=== PATIENT | female | born 1935 | race Caucasian/White ===

== ENCOUNTER 2016-10-26 12:37 | Inpatient (IN) | payer MEDICARE ==
[2016-10-26] MEDS ORDERED: ONDANSETRON 4 MG/2 ML VIAL IVP STA ×2 (12:57→14:41)
[2016-10-26] MEDS ORDERED: SODIUM CHLORIDE 0.9% 1,000 ML IV STA (12:57)
--- NOTE | 2016-10-26 13:16 | ED ---
Nausea/Vomiting/Diarrhea HPI - General Source: patient, family, RN notes reviewed Mode of arrival: ambulatory Limitations: no limitations <Rakesh Le - Last Filed: 10/26/16 15:21> <Cameron Rae - Last Filed: 10/26/16 15:22> - General Stated complaint: nausea,vomiting Time Seen by Provider: 10/26/16 12:45 - History of Present Illness Initial comments: 81-year-old female patient presents to emergency department today for complaints of nausea, vomiting, and diarrhea for the last week. Patient states that she has been vomiting multiple times a day, has had multiple episodes of diarrhea daily with 5 episodes this morning. Patient denies any significant abdominal pain, just states that she is sore from vomiting so much. Patient states that she vomits anytime she tries to have any oral intake, so she states she has had very minimal food or fluids for the last week. Patient has had 2 bouts with similar episodes in addition to this episode since the beginning of September. Patient reports some mild shortness of breath, cough, with yellow sputum production. Patient denies any chest pain, headache, dizziness, weakness , dysuria, urinary urgency, urinary frequency. Patient denies any hematemesis, dark, bloody, or black stools. She denies any fever or chills. (Rakesh Le) - Related Data Home Medications Medication Instructions Recorded Confirmed Albuterol Sulfate [Proair Hfa] 1 puff INHALATION RT-DAILY PRN 10/26/16 10/26/16 Aspirin [Adult Low Dose Aspirin EC] 81 mg PO DAILY 10/26/16 10/26/16 Loperamide [Imodium] 2 mg PO QID PRN 10/26/16 10/26/16 Montelukast Sodium [Singulair] 10 mg PO HS 10/26/16 10/26/16 Omeprazole 20 mg PO DAILY 10/26/16 10/26/16 Allergies Allergy/AdvReac Type Severity Reaction Status Date / Time erythromycin base Allergy Unknown Verified 10/26/16 15:04 [From Erythrocin] Penicillins Allergy Unknown Verified 10/26/16 15:04 Review of Systems ROS Other: All systems not noted in ROS Statement are negative. <Rakesh Le - Last Filed: 10/26/16 15:21> ROS Other: All systems not noted in ROS Statement are negative. <Cameron Rae - Last Filed: 10/26/16 15:22> ROS Statement: Those systems with pertinent positive or pertinent negative responses have been documented in the HPI. General Exam Limitations: no limitations General appearance: alert, in distress (Mild) Eye exam: Present: normal appearance, PERRL, EOMI. Absent: scleral icterus, conjunctival injection, periorbital swelling ENT exam: Present: normal exam, mucous membranes moist Neck exam: Present: normal inspection. Absent: tenderness, meningismus, lymphadenopathy Respiratory exam: Present: respiratory distress (Mild), rhonchi (Left lower). Absent: normal lung sounds bilaterally, wheezes, rales, stridor Cardiovascular Exam: Present: normal rhythm, tachycardia, normal heart sounds. Absent: systolic murmur, diastolic murmur, rubs, gallop, clicks GI/Abdominal exam: Present: soft, tenderness (Mild diffuse tenderness, moderate left lower quadrant), normal bowel sounds. Absent: distended, guarding, rebound , rigid Back exam: Present: normal inspection. Absent: CVA tenderness (R), CVA tenderness (L) Neurological exam: Present: alert, oriented X3, CN II-XII intact Psychiatric exam: Present: normal affect, normal mood Skin exam: Present: warm, dry, intact, pallor. Absent: rash <Rakesh Le - Last Filed: 10/26/16 15:21> Course <Rakesh Le - Last Filed: 10/26/16 15:21> <Cameron Rae - Last Filed: 10/26/16 15:22> Vital Signs 10/26/16 10/26/16 10/26/16 13:00 14:25 14:51 Temperature 97.8 F 101.1 F H Pulse Rate 85 117 H 112 H Respiratory 16 20 16 Rate Blood Pressure 108/63 128/57 128/57 O2 Sat by Pulse 92 L 92 L Oximetry - Reevaluation(s) Reevaluation #1: 10/26/16 14:52 Patient was found a lactic acid of 8.5. Patient was given 30/kg of normal saline, patient was started on IV antibiotics Levaquin, Flagyl. Patient has left lower lobe pneumonia, diverticulitis (Rakesh Le) Medical Decision Making - Lab Data Result diagrams: 10/26/16 12:55 03/25/17 12:55 - Radiology Data Radiology results: report reviewed, image reviewed <Rakesh Le - Last Filed: 10/26/16 15:21> - Lab Data Result diagrams: 10/26/16 12:55 10/26/16 12:55 <Cameron Rae - Last Filed: 10/26/16 15:22> - Medical Decision Making 81-year-old female presented emergency from for nausea vomiting diarrhea, cough and congestion. Patient was found to have left lower lobe pneumonia and diverticulitis. Patient is septic at this time. Patient was started on IV fluid resuscitation, IV antibiotics broad-spectrum. Patient will be admitted to ICU with consult to surgery, repeat labs including lactic acid (Rakesh Le ) The patient was seen and examined. All diagnostics were reviewed. Case was discussed with internal medicine and ICU. Case is also discussed with the PA and I agree with the findings as discussed. (Cameron Rae) - Lab Data Lab Results 10/26/16 10/26/16 10/26/16 Range/Units 12:55 12:55 12:55 WBC 24.6 H (3.8-10.6) k/uL RBC 4.34 (3.80-5.40) m/uL Hgb 12.2 (11.4-16.0) gm/dL Hct 37.5 (34.0-46.0) % MCV 86.3 (80.0-100.0) fL MCH 28.0 (25.0-35.0) pg MCHC 32.5 (31.0-37.0) g/dL RDW 20.6 H (11.5-15.5) % Plt Count 103 L (150-450) k/uL Neutrophils % (Manual) 40.5 % Band Neutrophils % 34.0 % Lymphocytes % (Manual) 2.0 % Monocytes % (Manual) 2.0 % Metamyelocytes % 13.5 % Myelocytes % 8.0 % Neutrophils # (Manual) 18.3 H (1.3-7.7) k/uL Lymphocytes # (Manual) 0.5 L (1.0-4.8) k/uL Monocytes # (Manual) 0.5 (0-1.0) k/uL Nucleated RBCs 0 (0-0) /100 WBC Manual Slide Review Performed RBC Morphology Normal Hypochromasia Slight Anisocytosis Moderate Microcytosis Slight PT (9.0-12.0) sec INR (<1.1) APTT (22.0-30.0) sec Sodium 140 (137-145) mmol/L Potassium 4.1 (3.5-5.1) mmol/L Chloride 100 (98-107) mmol/L Carbon Dioxide 16 L (22-30) mmol/L Anion Gap 24 mmol/L BUN 29 H (7-17) mg/dL Creatinine 2.22 H (0.52-1.04) mg/dL Est GFR (MDRD) Af Amer 26 (>60 ml/min/1.73 sqM) Est GFR (MDRD) Non-Af 21 (>60 ml/min/1.73 sqM) Glucose 94 (74-99) mg/dL Plasma Lactic Acid Adriano 8.5 H* (0.7-2.0) mmol/L Calcium 8.1 L (8.4-10.2) mg/dL Total Bilirubin 1.2 (0.2-1.3) mg/dL AST 46 H (14-36) U/L ALT 11 (9-52) U/L Alkaline Phosphatase 77 (38-126) U/L Total Creatine Kinase (30-135) U/L CK-MB (CK-2) (0.0-2.4) ng/mL CK-MB (CK-2) Rel Index Troponin I (0.000-0.034) ng/mL Total Protein 7.6 (6.3-8.2) g/dL Albumin 3.9 (3.5-5.0) g/dL Amylase 38 (30-110) U/L Lipase 20 L (23-300) U/L Urine Color Urine Appearance (Clear) Urine pH (5.0-8.0) Ur Specific [place] (1.001-1.035) Urine Protein (Negative) Urine Glucose (UA) (Negative) Urine Ketones (Negative) Urine Blood (Negative) Urine Nitrite (Negative) Urine Bilirubin (Negative) Urine Urobilinogen (<2.0) mg/dL Ur Leukocyte Esterase (Negative) Urine RBC (0-5) /hpf Urine WBC (0-5) /hpf Ur Squamous Epith Cells (0-4) /hpf Urine Bacteria (None) /hpf C. difficile (EIA) Intrp (Negative) 10/26/16 10/26/16 10/26/16 Range/Units 12:55 12:55 14:00 WBC (3.8-10.6) k/uL RBC (3.80-5.40) m/uL Hgb (11.4-16.0) gm/dL Hct (34.0-46.0) % MCV (80.0-100.0) fL MCH (25.0-35.0) pg MCHC (31.0-37.0) g/dL RDW (11.5-15.5) % Plt Count (150-450) k/uL Neutrophils % (Manual) % Band Neutrophils % % Lymphocytes % (Manual) % Monocytes % (Manual) % Metamyelocytes % % Myelocytes % % Neutrophils # (Manual) (1.3-7.7) k/uL Lymphocytes # (Manual) (1.0-4.8) k/uL Monocytes # (Manual) (0-1.0) k/uL Nucleated RBCs (0-0) /100 WBC Manual Slide Review RBC Morphology Hypochromasia Anisocytosis Microcytosis PT 12.8 H (9.0-12.0) sec INR 1.3 (<1.1) APTT 32.8 H (22.0-30.0) sec Sodium (137-145) mmol/L Potassium (3.5-5.1) mmol/L Chloride (98-107) mmol/L Carbon Dioxide (22-30) mmol/L Anion Gap mmol/L BUN (7-17) mg/dL Creatinine (0.52-1.04) mg/dL Est GFR (MDRD) Af Amer (>60 ml/min/1.73 sqM) Est GFR (MDRD) Non-Af (>60 ml/min/1.73 sqM) Glucose (74-99) mg/dL Plasma Lactic Acid Adriano (0.7-2.0) mmol/L Calcium (8.4-10.2) mg/dL Total Bilirubin (0.2-1.3) mg/dL AST (14-36) U/L ALT (9-52) U/L Alkaline Phosphatase (38-126) U/L Total Creatine Kinase 96 (30-135) U/L CK-MB (CK-2) 2.2 (0.0-2.4) ng/mL CK-MB (CK-2) Rel Index 2.3 Troponin I 0.529 H* (0.000-0.034) ng/mL Total Protein (6.3-8.2) g/dL Albumin (3.5-5.0) g/dL Amylase (30-110) U/L Lipase (23-300) U/L Urine Color Urine Appearance (Clear) Urine pH (5.0-8.0) Ur Specific [place] (1.001-1.035) Urine Protein (Negative) Urine Glucose (UA) (Negative) Urine Ketones (Negative) Urine Blood (Negative) Urine Nitrite (Negative) Urine Bilirubin (Negative) Urine Urobilinogen (<2.0) mg/dL Ur Leukocyte Esterase (Negative) Urine RBC (0-5) /hpf Urine WBC (0-5) /hpf Ur Squamous Epith Cells (0-4) /hpf Urine Bacteria (None) /hpf C. difficile (EIA) Intrp Negative (Negative) 10/26/16 Range/Units 15:09 WBC (3.8-10.6) k/uL RBC (3.80-5.40) m/uL Hgb (11.4-16.0) gm/dL Hct (34.0-46.0) % MCV (80.0-100.0) fL MCH (25.0-35.0) pg MCHC (31.0-37.0) g/dL RDW (11.5-15.5) % Plt Count (150-450) k/uL Neutrophils % (Manual) % Band Neutrophils % % Lymphocytes % (Manual) % Monocytes % (Manual) % Metamyelocytes % % Myelocytes % % Neutrophils # (Manual) (1.3-7.7) k/uL Lymphocytes # (Manual) (1.0-4.8) k/uL Monocytes # (Manual) (0-1.0) k/uL Nucleated RBCs (0-0) /100 WBC Manual Slide Review RBC Morphology Hypochromasia Anisocytosis Microcytosis PT (9.0-12.0) sec INR (<1.1) APTT (22.0-30.0) sec Sodium (137-145) mmol/L Potassium (3.5-5.1) mmol/L Chloride (98-107) mmol/L Carbon Dioxide (22-30) mmol/L Anion Gap mmol/L BUN (7-17) mg/dL Creatinine (0.52-1.04) mg/dL Est GFR (MDRD) Af Amer (>60 ml/min/1.73 sqM) Est GFR (MDRD) Non-Af (>60 ml/min/1.73 sqM) Glucose (74-99) mg/dL Plasma Lactic Acid Adriano (0.7-2.0) mmol/L Calcium (8.4-10.2) mg/dL Total Bilirubin (0.2-1.3) mg/dL AST (14-36) U/L ALT (9-52) U/L Alkaline Phosphatase (38-126) U/L Total Creatine Kinase (30-135) U/L CK-MB (CK-2) (0.0-2.4) ng/mL CK-MB (CK-2) Rel Index Troponin I (0.000-0.034) ng/mL Total Protein (6.3-8.2) g/dL Albumin (3.5-5.0) g/dL Amylase (30-110) U/L Lipase (23-300) U/L Urine Color Red Urine Appearance Turbid H (Clear) Urine pH 7.0 (5.0-8.0) Ur Specific [place] 1.013 (1.001-1.035) Urine Protein 2+ H (Negative) Urine Glucose (UA) Negative (Negative) Urine Ketones Negative (Negative) Urine Blood Moderate H (Negative) Urine Nitrite Negative (Negative) Urine Bilirubin Negative (Negative) Urine Urobilinogen 6.0 (<2.0) mg/dL Ur Leukocyte Esterase Large H (Negative) Urine RBC 27 H (0-5) /hpf Urine WBC 16 H (0-5) /hpf Ur Squamous Epith Cells 23 H (0-4) /hpf Urine Bacteria Many H (None) /hpf C. difficile (EIA) Intrp (Negative) 10/26/16 14:55 EKG performed at 13:25 sinus tachycardia with short ME, rate of 1:15, ME interval 94, QRS duration 72, QT/QTC 304/420 (Rakesh Le) - Radiology Data X-ray KUB overall nonobstructive bowel gas pattern left lower lobe pneumonia noted X-ray chest x-ray left lower lobe pneumonia CT abdomen and pelvis shows inflammatory changes consistent with diverticulitis cannot exclude fistula to the bladder. (Rakesh Le) Disposition <Rakesh Le - Last Filed: 10/26/16 15:21> <Cameron Rae - Last Filed: 10/26/16 15:22> Clinical Impression: Sepsis, Left lower lobe pneumonia, Diverticulitis, Dehydration, Acute renal failure Disposition: ADMITTED IP TO THIS HOSP Condition: Serious Referrals: Chaim Jarvis MD [Primary Care Provider] - 1-2 days
[2016-10-26 13:31] LABS: Anisocytosis Moderate; CH 27.3; CHCM 31.7; HCT 37.5 % (34.0-46.0); HDW 3.16; HGB 12.2 gm/dL (11.4-16.0); Hypochromasia Slight; Immature Gran Flag Marked; MCHC 32.5 g/dL (31.0-37.0); MCV 86.3 fL (80.0-100.0); Mean Platelet Volume 10.3; Microcytosis Slight; RBC 4.34 m/uL (3.80-5.40); RDW 20.6 % (11.5-15.5); WBC 24.6 k/uL (3.8-10.6); WBC (Perox) 24.94
[2016-10-26 13:33] LABS: INR 1.3 (<1.1); Partial Thromboplastin Time 32.8 sec (22.0-30.0); Prothrombin Time 12.8 sec (9.0-12.0)
[2016-10-26] MEDS ORDERED: RX INFO: IV CONTRAST WAS GIVEN 1 EACH MISC MISCELLANE PRN (13:44)
[2016-10-26 13:47] LABS: Calcium 8.1 mg/dL (8.4-10.2); Potassium 4.1 mmol/L (3.5-5.1); Total Bilirubin 1.2 mg/dL (0.2-1.3); Total Protein 7.6 g/dL (6.3-8.2)
[2016-10-26 13:53] LABS: Add Differential Manual Differential
[2016-10-26] MEDS ORDERED: SODIUM CHLORIDE 0.9% 500 ML IV ONE (13:56)
[2016-10-26 13:57] LABS: Manual Review Performed; Metamyelocytes % 13.5 %; Nucleated Red Blood Cells 0 /100 WBC (0-0); Total Cells Counted 200
[2016-10-26 13:58] LABS: RBC Morphology Normal
[2016-10-26 14:04] LABS: Creatine Kinase MB 2.2 ng/mL (0.0-2.4)
--- NOTE | 2016-10-26 14:08 | XR ---
EXAMINATION TYPE: XR chest 2V DATE OF EXAM: 10/26/2016 2:02 PM COMPARISON: NONE HISTORY: Cough TECHNIQUE: Frontal and lateral views of the chest are obtained. FINDINGS: There is a mild patchy infiltrate in the left lower lobe. The right lung is clear. There i s no heart failure. Heart size is normal. There are no hilar masses. Thoracic aorta is atheromatous. Bony thorax is intact. There is no definite pleural effusion. IMPRESSION: Left lower lobe pneumonia. Normal heart.
[2016-10-26 14:16] LABS: Troponin I 0.529 ng/mL (0.000-0.034)
[2016-10-26] MEDS ORDERED: LEVOFLOXACIN 750MG-D5W PMX 750 MG in DEXTROSE/WATER 1 150ML.BAG IVPB STA (14:24)
[2016-10-26] MEDS: SODIUM CHLORIDE 0.9% 1,000 ML IV ONE (14:24)
--- NOTE | 2016-10-26 14:28 | XR ---
EXAMINATION TYPE: XR KUB DATE OF EXAM: 10/26/2016 2:20 PM COMPARISON: NONE HISTORY: Cough, vomiting. Abdominal pain. TECHNIQUE: 2 views FINDINGS: There is no sign of intestinal obstruction or pneumoperitoneum. Fecal pattern is normal. Th ere is no sign of a mass. There are no pathologic calcifications over the kidneys. There is a clip ap parently from cholecystectomy. There is pneumonic patchy consolidation in the left lower lobe. IMPRESSION: Nonacute abdomen. Left lower lobe pneumonia.
--- NOTE | 2016-10-26 14:34 | CT ---
EXAMINATION TYPE: CT abdomen pelvis wo con DATE OF EXAM: 10/26/2016 2:20 PM COMPARISON: NONE HISTORY: Nausea, vomiting, and pain CT DLP: 374.7 mGycm Automated exposure control for dose reduction was used. TECHNIQUE: Helical acquisition of images was performed from the lung bases through the pelvis. FINDINGS: There are bilateral patchy pneumonic airspace infiltrates in both lower lobes. There is no pleural ef fusion. Liver spleen pancreas appear normal. There are clips from cholecystectomy. Bile ducts are not dilated . There is no adrenal mass. Kidneys have normal size and contour. There is no hydronephrosis. Ureters are not dilated. There are multiple sigmoid diverticula. There is fat stranding around the proximal sigmoid colon. The re is also wall thickening. Bladder distends smoothly. There is some air in the bladder. I do not see an obvious fistula. Urinary bladder however is adjacent to the inflammatory changes of the sigmoid colon. There are spondylotic changes in the lumbar spine. IMPRESSION: THERE IS AN APPROXIMATE 10 CM SEGMENT OF INFLAMMATORY CHANGES IN THE PROXIMAL SIGMOID COLON CONSISTEN T WITH DIVERTICULITIS. NO DRAINABLE ABSCESS SEEN. THERE IS BLADDER AIR THAT COULD RELATE TO CATHETERI ZATION AND SHOULD BE CORRELATED. A BLADDER FISTULA CANNOT BE EXCLUDED. BILATERAL LOWER LOBE PNEUMONIC PATCHY CONSOLIDATION CONSISTENT WITH PNEUMONIA.
[2016-10-26] MEDS ORDERED: metroNIDAZOLE-NS PMX 500 MG in SALINE 1 100ML.BAG IVPB STA (14:42)
[2016-10-26] MEDS ORDERED: IPRATROPIUM-ALBUTEROL 3 ML NEB INHALATION PRN (15:21)
[2016-10-26] MEDS ORDERED: NALOXONE 0.4 MG/ML 1 ML VIAL IV PRN (15:21)
[2016-10-26] MEDS ORDERED: ACETAMINOPHEN TAB 325 MG TAB PO PRN (15:21)
[2016-10-26 15:22] LABS: Appearance,Urine Turbid (Clear); Bacteria,Urine Many /hpf; Bilirubin,Urine Negative (Negative); Glucose,Urine (UA) Negative (Negative); Ketones,Urine Negative (Negative); Leukocyte Esterase,Urine Large (Negative); Nitrite,Urine Negative (Negative); Particle Count 806489; Protein,Urine 2+ (Negative); RBC,Urine 27 /hpf (0-5); Specific Gravity,Urine 1.013 (1.001-1.035); Squamous Epithelial Cell,Urine 23 /hpf (0-4); UA Billing (MACRO vs. MICRO) MICRO; WBC,Urine 16 /hpf (0-5)
[2016-10-26] MEDS ORDERED: ACETAMINOPHEN IV (For NPO) 1,000 MG in EMPTY BAG 1 BAG IVPB STA (15:25)
[2016-10-26 16:29] LABS: Glucose,Whole Blood 84 mg/dL (75-99)
[2016-10-26] MEDS: SODIUM CHLORIDE 0.9% 1,000 ML IV SCH ×2 (16:40→23:27)
[2016-10-26] MEDS ORDERED: ALBUTEROL NEBULIZED 2.5 MG/3 ML INHALATION PRN (18:55)
[2016-10-26] MEDS: HYDROcodone/APAP 5-325MG 1 EACH TAB PO PRN (19:55)
[2016-10-26] MEDS: CLINDAMYCIN 300 MG in DEXTROSE 5% IN WATER 50 ML IVPB SCH ×4 (20:19→23:15)
[2016-10-26] MEDS ORDERED: OSELTAMIVIR 75 MG CAP PO SCH (21:00)
[2016-10-26] MEDS: OSELTAMIVIR 60 MG/10 ML ORAL SYRINGE PO SCH (21:51)
--- NOTE | 2016-10-26 22:23 | P.CNPUL ---
History of Present Illness Consult date: 10/26/16 Requesting physician: Celestino Hand Reason for consult: other (Sepsis) Chief complaint: Nausea vomiting and diarrhea History of present illness: This is a 81-year-old female with history of COPD, GERD, presented to the ER with 1 week history of diarrhea. Her diarrhea was not associated with any abdominal pain, no melena, and no hematemesis. In the last few days the patient has been vomiting, and has been complaining of cough. Cough is productive with yellow phlegm, she has also been complaining of chills but no documented fever. Patient was also complaining of aches and pains, and mostly chest pain upon coughing. Patient could not keep any food down, in addition to all of this the patient has been complaining of slight shortness of breath upon evaluation in the ER, the patient was found to have left lower lobe pneumonia, evidence of diverticulitis or colitis, and evidence of urinary tract infection. Patient had no symptoms to suggest urinary tract infection, no dysuria frequency or urgency, she had no symptoms of GI bleeding, but she did have symptoms of pneumonia. Screening in the ER including a C. diff was negative, however influenza screen was positive by PCR. Patient was admitted, placed on antibiotics in the form of Levaquin, clindamycin, also placed on Tamiflu. In the ER her lactic acid was elevated, and she received fluid boluses, did not require any pressors for blood pressure. Initial lactic acid was around 8, follow-up lactic acid was around 4. At the time of my evaluation in the ICU, patient had no headache, no blurred vision, no dizziness, she did complain of cough, no wheezing, no documented fever, no chills, she did have episodes of nausea vomiting and diarrhea. Review of Systems 14 point review of systems were obtained, please refer to pertinent positives and negatives as per HPI. Past Medical History Past Medical History: COPD Additional Past Medical History / Comment(s): diverticulosis, uterine cancer History of Any Multi-Drug Resistant Organisms: None Reported Past Surgical History: Appendectomy, Hysterectomy Past Anesthesia/Blood Transfusion Reactions: No Reported Reaction Past Psychological History: Anxiety, Depression Smoking Status: Former smoker Past Alcohol Use History: None Reported Past Drug Use History: None Reported - Past Family History Mother Family Medical History: Congestive Heart Failure (CHF), Diabetes Mellitus Father Family Medical History: Congestive Heart Failure (CHF) Additional Family Medical History / Comment(s): lung cancer Sister(s) Family Medical History: Congestive Heart Failure (CHF), Diabetes Mellitus Brother(s) Family Medical History: Congestive Heart Failure (CHF), Diabetes Mellitus Medications and Allergies Home Medications Medication Instructions Recorded Confirmed Type ALPRAZolam [Xanax] 0.5 mg PO DAILY PRN 10/26/16 10/26/16 History Albuterol Sulfate [Proair Hfa] 1 puff INHALATION RT-DAILY PRN 10/26/16 10/26/16 History Aspirin [Adult Low Dose Aspirin EC] 81 mg PO DAILY 10/26/16 10/26/16 History Loperamide [Imodium] 2 mg PO QID PRN 10/26/16 10/26/16 History Montelukast Sodium [Singulair] 10 mg PO HS 10/26/16 10/26/16 History Omeprazole 20 mg PO DAILY 10/26/16 10/26/16 History Allergies Allergy/AdvReac Type Severity Reaction Status Date / Time erythromycin base Allergy Unknown Verified 10/26/16 15:04 [From Erythrocin] Penicillins Allergy Unknown Verified 10/26/16 15:04 Physical Exam Vitals: Vital Signs Temp Pulse Pulse Resp BP BP Pulse Ox 10/26/16 21:00 91 25 H 92/42 96 10/26/16 20:30 93 20 96/44 96 10/26/16 20:00 98 F 95 28 H 104/52 97 10/26/16 19:30 98 26 H 94/45 94 L 10/26/16 19:00 102 H 103 H 30 H 98/44 98/44 92 L 10/26/16 18:30 108 H 33 H 91/46 93 L 10/26/16 18:00 110 H 25 H 118/56 93 L 10/26/16 17:24 99.3 F 108 H 32 H 102/42 95 10/26/16 17:00 108 H 28 H 126/57 94 L 10/26/16 16:30 99.3 F 110 H 26 H 98/46 91 L Intake and Output 10/26/16 10/26/16 10/26/16 06:59 14:59 22:59 Intake Total 700 Output Total 275 Balance 425 Intake: Intake, IV Titration 700 Amount ACETAMINOPHEN IV (For NPO 400 ) 1,000 mg In Empty Bag 1 bag @ 400 mls/hr IVPB ONCE STA Rx#:[id number] Sodium Chloride 0.9% 1, 300 000 ml @ 150 mls/hr IV . Q6H40M [facility] Rx#:[id number] Output: Urine 275 Other: Voiding Method Indwelling Catheter Weight 72.8 kg Patient Weight 10/27/16 06:59 Weight 72.8 kg Physical Exam: Revealed a 81-year-old, frail looking, in no distress. HEENT:[Neck is supple.] [No neck masses.] [No thyromegaly.] [No JVD.] Dry mucous membranes were noted. Chest: [Crackles at the bases were noted especially at the left base, no rhonchi , no wheezes were appreciated.] Cardiac Exam: [Normal S1 and S2, no S3 gallop, 2/6 systolic murmur. The left lower sternal border.] Abdomen: [Soft, nontender, no megaly, no rebound, no guarding, normal bowel sounds.] Extremities: [No clubbing, no edema, no cyanosis.] Neurological Exam: [No focal neurologic deficit.] Results - Laboratory Findings CBC and BMP: 10/26/16 12:55 10/26/16 12:55 PT/INR, D-dimer PT 12.8 sec (9.0-12.0) H 10/26/16 12:55 INR 1.3 (<1.1) 10/26/16 12:55 Abnormal lab findings: Abnormal Labs 10/26/16 10/26/16 16:40 19:50 Plasma Lactic Acid Adriano 4.0 H* Influenza Type B (PCR) Detected H - Diagnostic Findings CT scan - chest: image reviewed (Evidence of significant infiltrate in the left lower lobe, minimal patchy opacity in the right lower lobe.) Additional studies: CT of the abdomen and pelvis showed approximate 10 cm segment of inflammatory changes noted in the proximal sigmoid colon consistent with diverticulitis. Assessment and Plan Plan: Impression: 1 Acute sepsis in a patient with acute influenza infection, complicated by pneumonia mostly involving the left lower lobe, community- acquired, and colitis/diverticulitis. The exact source of her sepsis could also be related to her urinary tract infection as noted in her abnormal urinalysis. 2 Acute influenza infection, patient is presently on Tamiflu 3 acute left lower lobe pneumonia, community-acquired, involving the left lower lobe mostly and to some extent the right lower lobe. The right lower lobe findings are more appreciated on the CT of the abdomen and pelvis. No clinical history of aspiration although the patient had multiple episodes of nausea and vomiting recently. But aspiration pneumonia is not entirely ruled out. 4 acute urinary tract infection 5 history of underlying COPD severity of which is not clear but possibly mild to moderate. 6 history of GERD without esophagitis. Recommendation: Continue IV fluids, oxygen, sepsis protocol to be followed, agree with antibiotics including Levaquin and clindamycin for now, continue Protonix, continue Tamiflu, continue DVT prophylaxis, and continue bronchodilators for underlying COPD. Diagnostic workup including cultures are pending urine for Legionella antigen was also ordered. We'll continue to follow. Discussed her condition with the patient and with her daughter at bedside. Time with Patient: Greater than 30
[2016-10-26] MEDS: ALPRAZolam 0.5 MG TAB PO PRN (23:16)
[2016-10-26] MEDS: ENOXAPARIN 30 MG/0.3 ML SYRINGE SQ SCH (23:26)
[2016-10-27] MEDS ORDERED: SODIUM CHLORIDE 0.9% 1,000 ML IV ONE (02:05)
[2016-10-27] MEDS: NOREPINEPHRINE 4 MG in SODIUM CHLORIDE 0.9% 250 ML IV SCH (02:31)
[2016-10-27] MEDS ORDERED: SODIUM CHLORIDE 0.9% 1,000 ML IV SCH (03:00)
[2016-10-27 04:08] LABS: ALT 24 U/L (9-52); AST 47 U/L (14-36); Alkaline Phosphatase 61 U/L (38-126); Anion Gap 13 mmol/L; Blood Urea Nitrogen 22 mg/dL (7-17); Calcium 6.6 mg/dL (8.4-10.2); Carbon Dioxide 15 mmol/L (22-30); Chloride 113 mmol/L (98-107); Glucose 71 mg/dL (74-99); Magnesium 1.7 mg/dL (1.6-2.3); Non-African American GFR(MDRD) 53 (>60 ml/min/1.73 sqM); Phosphorous 4.1 mg/dL (2.5-4.5); Potassium 3.7 mmol/L (3.5-5.1); Sodium 141 mmol/L (137-145); Total Protein 5.8 g/dL (6.3-8.2)
[2016-10-27 04:26] LABS: Anisocytosis Moderate; CH 26.7; CHCM 29.6; HDW 3.05; HGB 10.9 gm/dL (11.4-16.0); Hypochromasia Marked; Immature Gran Flag Marked; MCH 27.4 pg (25.0-35.0); MCHC 30.3 g/dL (31.0-37.0); MCV 90.4 fL (80.0-100.0); Mean Platelet Volume 9.1; RBC 3.98 m/uL (3.80-5.40); WBC (Perox) 28.72
[2016-10-27 04:32] LABS: WBC 27.4 k/uL (3.8-10.6)
[2016-10-27 04:55] LABS: Glucose,Whole Blood 74 mg/dL (75-99)
[2016-10-27] MEDS ORDERED: Potassium Replacement Protocol 1 EACH MISC MISCELLANE PRN (05:08)
[2016-10-27] MEDS ORDERED: Magnesium Replacement Protocol 1 EACH MISC MISCELLANE PRN (05:08)
[2016-10-27] MEDS ORDERED: POTASSIUM CHLORIDE ER 20 MEQ TAB.ER PO SCH (06:00)
[2016-10-27] MEDS: CLINDAMYCIN 300 MG in DEXTROSE 5% IN WATER 50 ML IVPB SCH ×6 (06:50→17:26)
[2016-10-27] MEDS: MAGNESIUM SULFATE-D5W PMX 1 GM in DEXTROSE/WATER 1 100ML.BAG IVPB SCH ×2 (06:51→08:07)
[2016-10-27 07:17] LABS: Add Differential Manual Differential
[2016-10-27 07:25] LABS: Band Neutrophils % 70.5 %; Nucleated Red Blood Cells 0 /100 WBC (0-0); Total Cells Counted 200
[2016-10-27 07:26] LABS: Ovalocytes Present
[2016-10-27 07:29] LABS: Toxic Vacuolation Present
--- NOTE | 2016-10-27 08:08 | XR ---
EXAMINATION TYPE: XR chest 1V DATE OF EXAM: 10/27/2016 6:30 AM COMPARISON: Yesterday HISTORY: Short of breath TECHNIQUE: Single frontal view of the chest is obtained. FINDINGS: There is pulmonary vascular congestion. There is blunting of costophrenic angles. There is coalescent density at the left lung base. There are chest leads. IMPRESSION: Congestive heart failure with pleural effusions. Left lower lobe pneumonia. Chest x-ray significantly worse than yesterday.
[2016-10-27] MEDS: ENOXAPARIN 30 MG/0.3 ML SYRINGE SQ SCH (08:19)
[2016-10-27] MEDS: PANTOPRAZOLE 40 MG TABLET PO SCH (08:19)
--- NOTE | 2016-10-27 08:21 | HP ---
DATE OF ADMISSION: 10/26/2016 Attending physician: Dr. Jarvis. Admitting physician Dr. Hand. CHIEF COMPLAINT: Cough. HISTORY OF PRESENT ILLNESS: This elderly female was brought in to the emergency room because of generalized weakness, cough and congestion. She was evaluated in the emergency room and felt to have septic process with markedly elevated lactic acid which was probably partially also due to the fact that she has renal failure. The patient does not recall having any history of renal failure. Her symptoms have been present for the past about a week. Denies any abdominal pain, nausea, vomiting. She does have some diarrhea for the past few days. The patient denies any blood or mucus in the stool. The patient denies having had any fever. She is noted to have a temperature of 100.1 in the emergency room. She is noted to have a rattling cough and congestion. She is fairly alert to give a history though she has some hearing impairment. She denies any chest pain, shortness of breath, though she does appear mildly tachypneic. Past medical history: Denies any major illnesses such as hypertension, diabetes, lung disease, liver disease, kidney disease, ulcers, TB, hepatitis. No history of any rheumatic fever, heart attack, stroke. She does have a history of chronic colitis. Denies any history of ulcer disease. PAST SURGICAL HISTORY: Significant for hysterectomy, appendectomy, cholecystectomy and left knee surgery. PERSONAL HISTORY: Nonsmoker, quit smoking about 40 years ago. Has smoked about 15 years. Alcohol none. ALLERGIES: PENICILLIN, which causes her hives and ( ) which causes nausea and vomiting. Medications at home include: 1. Xanax 0.5 p.r.n. 2. Singulair 10 mg daily. 3. Imodium p.r.n. 4. Omeprazole 20 mg daily. 5. Aspirin 81 mg daily. 6. She uses Pro-Air inhaler p.r.n. SOCIAL HISTORY: Patient is and lives with her spouse. FAMILY MEDICAL HISTORY: Does not recall her parent's history well. She had 2 brothers and 2 sisters, all . One sister had a history of end-stage renal disease on hemodialysis. The patient had 3 pregnancies, lost one child, she had a miscarriage of one. She had one which at about 2 months. She has one daughter living at present about 50 years of age, in good health. REVIEW OF SYSTEMS: NEURO: Denies any headaches, dizziness. No double vision, blurred vision. No symptoms of TIA, syncope, seizures. PSYCH: No anxiety. CARDIAC: Denies chest pain, angina, palpitation. RESPIRATORY: Denies shortness of breath. Does have cough. No hemoptysis. GI: Denies any nausea, vomiting, abdominal pain. Does have some diarrhea. : No symptoms of dysuria, hematuria. Has an IDC placed. The urine appears cloudy and dark in color. EXTREMITIES: Denies pain or edema. CONSTITUTIONAL: Fever. No chills. SKIN: No breakdown. ENT: Decreased hearing. EYES: Adequate vision. SKIN: No breakdown. PHYSICAL EXAMINATION: A 81-year-old female who appears chronically ill and frail in no distress as such. She does have mild constant cough. She does have some rattly respirations, mild tachypnea. Vital signs reveal temperature 99.3, pulse 110, respirations 26, blood pressure 98/46, pulse ox was 91% on 3 liters. HEENT: Normocephalic. NECK: Supple. No JVD. Pupils reactive. Conjunctivae are pink. Oral cavity is dry. Neck reveals no JVD, carotid bruits, or thyromegaly. CHEST EXAMINATION: Has wet crackles at the left base. A few scattered rhonchi. CARDIAC: Distant heart sounds. S1, S2 with no gallops. Systolic murmur 2/6 left sternal border. ABDOMEN: Protuberant, soft. Bowel sounds are active. Extremities reveal trace edema. NEUROLOGIC: Awake, alert, oriented with well-coordinated movements. LABORATORY ASSESSMENT: White count 24.6, hemoglobin 12.2, platelet count 103,000. INR 1.3. BUN 29, creatinine 2.22, lactic acid was 8.5 and repeat is down to 4., AST 46, troponin 0.529. Liver enzymes are normal. Urinalysis is turbid, moderate amount of blood with 27 RBCs, 16 WBCs, numerous squamous epithelial cells, ( ) was negative. Chest x-ray left lower lobe pneumonia. CAT scan reveals even more evident left lower lobe infiltrate. Radiology feels the patient may have diverticulitis in the proximal sigmoid. ASSESSMENT: 1. Pneumonia. 2. Sepsis. 3. Chronic kidney disease Stage IV. 4. Thrombocytopenia. 5. Possible diverticulitis. 6. Medical debility. PLAN: The patient will be started on Levaquin as well as clindamycin. Patient's general condition is guarded. Prognosis guarded. The patient will be followed by real estate representative. Repeat patient's electrolytes and renal status. May require an ultrasound of the kidneys. Prognosis remains guarded. Condition discussed with the patient.
[2016-10-27] MEDS: OSELTAMIVIR 60 MG/10 ML ORAL SYRINGE PO SCH ×2 (09:17→22:08)
[2016-10-27] MEDS ORDERED: ONDANSETRON 4 MG/2 ML VIAL IVP PRN (09:49)
[2016-10-27] MEDS: SODIUM CHLORIDE 0.9% 1,000 ML IV SCH ×2 (10:01→22:09)
--- NOTE | 2016-10-27 12:13 | P.PN ---
Subjective Principal diagnosis: Acute sepsis with acute pneumonia/community-acquired, acute urinary tract infection, and acute diverticulitis. And acute influenza infection. This is a 81-year-old female with history of COPD, GERD, presented to the ER with 1 week history of diarrhea. Her diarrhea was not associated with any abdominal pain, no melena, and no hematemesis. In the last few days the patient has been vomiting, and has been complaining of cough. Cough is productive with yellow phlegm, she has also been complaining of chills but no documented fever. Patient was also complaining of aches and pains, and mostly chest pain upon coughing. Patient could not keep any food down, in addition to all of this the patient has been complaining of slight shortness of breath upon evaluation in the ER, the patient was found to have left lower lobe pneumonia, evidence of diverticulitis or colitis, and evidence of urinary tract infection. Patient had no symptoms to suggest urinary tract infection, no dysuria frequency or urgency, she had no symptoms of GI bleeding, but she did have symptoms of pneumonia. Screening in the ER including a C. diff was negative, however influenza screen was positive by PCR. Patient was admitted, placed on antibiotics in the form of Levaquin, clindamycin, also placed on Tamiflu. In the ER her lactic acid was elevated, and she received fluid boluses, did not require any pressors for blood pressure. Initial lactic acid was around 8, follow-up lactic acid was around 4. At the time of my evaluation in the ICU, patient had no headache, no blurred vision, no dizziness, she did complain of cough, no wheezing, no documented fever, no chills, she did have episodes of nausea vomiting and diarrhea. Patient was reevaluated today on 10/27/2016, doing relatively well except for the fact that the patient required small dose of norepinephrine last night for a short Time and she remains on 2 g at this point which will be discontinued in the next hour. Patient did receive significant amount of fluids initially upon admission, and more fluid boluses were given last night. Her lactic acid seems to be significantly improved, it is down to 1.9 today. However her CBC is showing leukocytosis with WBC count of 27.4. Electrolytes are normal, anion gap is 13. Patient seems to have mostly a picture of hyperchloremic metabolic acidosis. All cultures are still pending. Chest x-ray continues to show significant infiltrate involving the left lower lobe, and there is some infiltrate in the right lower lobe/minimal. Objective - Vital Signs Vital signs: Vital Signs Temp 96.9 F L 10/27/16 08:00 Pulse 114 H 10/27/16 10:00 Resp 28 H 10/27/16 10:00 BP 131/50 10/27/16 10:00 Pulse Ox 92 L 10/27/16 10:00 Intake & Output 10/26/16 10/27/16 10/27/16 18:59 06:59 18:59 Intake Total 550 2500 843.561 Output Total 225 945 250 Balance 325 1555 593.561 Weight 72.8 kg 74 kg Intake: Intake, IV Titration 550 2500 618.561 Amount ACETAMINOPHEN IV (For NPO 400 ) 1,000 mg In Empty Bag 1 bag @ 400 mls/hr IVPB ONCE STA Rx#:[id number] Clindamycin 300 mg In 200 100 Dextrose 5% in Water 50 ml @ 100 mls/hr IVPB Q6HR AD Rx#:[id number] Magnesium Sulfate-D5w Pmx 200 1 gm In Dextrose/Water 1 100ml.bag @ 100 mls/hr IVPB Q1H AD Rx#: [id number] Norepinephrine 4 mg In 43.561 Sodium Chloride 0.9% 250 ml @ Titrate IV .Q0M AD Rx#:[id number] Sodium Chloride 0.9% 1, 2150 200 000 ml @ 100 mls/hr IV . Q10H AD Rx#:[id number] Sodium Chloride 0.9% 1, 150 150 000 ml @ 150 mls/hr IV . Q6H40M AD Rx#:[id number] Sodium Chloride 0.9% 1, 75 000 ml @ 75 mls/hr IV . [id number] AD Rx#:[id number] Oral 225 Output: Urine 225 945 250 Other: Voiding Method Indwelling Catheter Indwelling Catheter Indwelling Catheter # Bowel Movements 1 - Exam Physical Exam: Revealed a 81-year-old, frail looking, in no distress. HEENT:[Neck is supple.] [No neck masses.] [No thyromegaly.] [No JVD.] Dry mucous membranes were noted. Chest: [Crackles at the bases were noted especially at the left base, no rhonchi , no wheezes were appreciated.] Cardiac Exam: [Normal S1 and S2, no S3 gallop, 2/6 systolic murmur. The left lower sternal border.] Abdomen: [Soft, nontender, no megaly, no rebound, no guarding, normal bowel sounds.] Extremities: [No clubbing, no edema, no cyanosis.] Neurological Exam: [No focal neurologic deficit.] - Labs CBC & Chem 7: 10/27/16 03:40 10/27/16 03:40 Labs: Abnormal Lab Results - Last 24 Hours (Table) 10/26/16 10/26/16 10/26/16 Range/Units 16:40 19:50 22:30 WBC (3.8-10.6) k/uL Hgb (11.4-16.0) gm/dL MCHC (31.0-37.0) g/dL RDW (11.5-15.5) % Plt Count (150-450) k/uL Neutrophils # (Manual) (1.3-7.7) k/uL Lymphocytes # (Manual) (1.0-4.8) k/uL Chloride (98-107) mmol/L Carbon Dioxide (22-30) mmol/L BUN (7-17) mg/dL Glucose (74-99) mg/dL POC Glucose (mg/dL) (75-99) mg/dL Plasma Lactic Acid Adriano 4.0 H* (0.7-2.0) mmol/L Calcium (8.4-10.2) mg/dL AST (14-36) U/L Troponin I 0.480 H* (0.000-0.034) ng/mL Total Protein (6.3-8.2) g/dL Albumin (3.5-5.0) g/dL Influenza Type B (PCR) Detected H (Not Detectd) 10/27/16 10/27/16 10/27/16 Range/Units 03:40 03:40 03:40 WBC 27.4 H* (3.8-10.6) k/uL Hgb 10.9 L (11.4-16.0) gm/dL MCHC 30.3 L (31.0-37.0) g/dL RDW 20.0 H (11.5-15.5) % Plt Count 89 L (150-450) k/uL Neutrophils # (Manual) 26.3 H (1.3-7.7) k/uL Lymphocytes # (Manual) 0.3 L (1.0-4.8) k/uL Chloride 113 H (98-107) mmol/L Carbon Dioxide 15 L (22-30) mmol/L BUN 22 H (7-17) mg/dL Glucose 71 L (74-99) mg/dL POC Glucose (mg/dL) (75-99) mg/dL Plasma Lactic Acid Adriano (0.7-2.0) mmol/L Calcium 6.6 L (8.4-10.2) mg/dL AST 47 H (14-36) U/L Troponin I 0.364 H* (0.000-0.034) ng/mL Total Protein 5.8 L (6.3-8.2) g/dL Albumin 2.7 L (3.5-5.0) g/dL Influenza Type B (PCR) (Not Detectd) 10/27/16 Range/Units 04:47 WBC (3.8-10.6) k/uL Hgb (11.4-16.0) gm/dL MCHC (31.0-37.0) g/dL RDW (11.5-15.5) % Plt Count (150-450) k/uL Neutrophils # (Manual) (1.3-7.7) k/uL Lymphocytes # (Manual) (1.0-4.8) k/uL Chloride (98-107) mmol/L Carbon Dioxide (22-30) mmol/L BUN (7-17) mg/dL Glucose (74-99) mg/dL POC Glucose (mg/dL) 74 L (75-99) mg/dL Plasma Lactic Acid Adriano (0.7-2.0) mmol/L Calcium (8.4-10.2) mg/dL AST (14-36) U/L Troponin I (0.000-0.034) ng/mL Total Protein (6.3-8.2) g/dL Albumin (3.5-5.0) g/dL Influenza Type B (PCR) (Not Detectd) Assessment and Plan Plan: Impression: 1 Acute sepsis in a patient with acute influenza infection, complicated by pneumonia mostly involving the left lower lobe, and right lower lobe and colitis/diverticulitis. The exact source of her sepsis could also be related to her urinary tract infection as noted in her abnormal urinalysis. 2 Acute influenza infection, patient is presently on Tamiflu 3 acute bilateral pneumonia mostly involving the left lower lobe but is also involving the right lower lobe to some extent. This is felt to be pneumonia as a complication of acute influenza infection. 4 acute urinary tract infection 5 history of underlying COPD severity of which is not clear but possibly mild to moderate. 6 history of GERD without esophagitis. Recommendation: Continue IV fluids, oxygen, sepsis protocol to be followed, agree with antibiotics including Levaquin and clindamycin for now, continue Protonix, continue Tamiflu, continue DVT prophylaxis, and continue bronchodilators for underlying COPD. Diagnostic workup including cultures are pending urine for Legionella antigen was also ordered. We'll continue to follow. Critical care time is 32 minutes. Time with Patient: Greater than 30
--- NOTE | 2016-10-27 13:09 | P.PN ---
Subjective Principal diagnosis: Pneumonia History of present illness: This 81-year-old female is admitted to the hospital with a pneumonia and associated influenza. The patient also had acute on chronic renal failure. The renal failure is improved with IV hydration. She continues to be mildly tachypneic and has cough. She however feels better. Denied any chest pain and no noted fever. The patient denies any shortness of breath. She has had no bowel movement post admission. REVIEW OF SYSTEMS: Neuro: Denies any headaches dizziness. Psych: Denies anxiety depression feels oriented. Cardiac: Denies chest pain and angina palpitations. Respiratory: Some shortness of breath and cough. GI: Mild nausea today no vomiting abdominal pain and diarrhea or constipation : Denies dysuria hematuria. 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 No edema. Skin: Intact. Constitutional: No fever, chills. Objective - Vital Signs Vital signs: Vital Signs Temp 98.6 F 10/27/16 12:00 Pulse 102 H 10/27/16 12:00 Resp 18 10/27/16 12:00 BP 111/49 10/27/16 12:00 Pulse Ox 99 10/27/16 12:00 Intake & Output 10/26/16 10/27/16 10/27/16 18:59 06:59 18:59 Intake Total 550 2500 993.561 Output Total 225 945 400 Balance 325 1555 593.561 Weight 72.8 kg 74 kg Intake: Intake, IV Titration 550 2500 768.561 Amount ACETAMINOPHEN IV (For NPO 400 ) 1,000 mg In Empty Bag 1 bag @ 400 mls/hr IVPB ONCE STA Rx#:[id number] Clindamycin 300 mg In 200 100 Dextrose 5% in Water 50 ml @ 100 mls/hr IVPB Q6HR AD Rx#:[id number] Magnesium Sulfate-D5w Pmx 200 1 gm In Dextrose/Water 1 100ml.bag @ 100 mls/hr IVPB Q1H AD Rx#: [id number] Norepinephrine 4 mg In 43.561 Sodium Chloride 0.9% 250 ml @ Titrate IV .Q0M AD Rx#:[id number] Sodium Chloride 0.9% 1, 2150 200 000 ml @ 100 mls/hr IV . Q10H AD Rx#:[id number] Sodium Chloride 0.9% 1, 150 150 000 ml @ 150 mls/hr IV . Q6H40M AD Rx#:[id number] Sodium Chloride 0.9% 1, 225 000 ml @ 75 mls/hr IV . [id number] AD Rx#:[id number] Oral 225 Output: Urine 225 945 400 Other: Voiding Method Indwelling Catheter Indwelling Catheter Indwelling Catheter # Bowel Movements 1 PHYSICAL EXAMINATION: Cooperative, at present in no acute distress. HEENT: Neck supple. No JVD. Chest: Crackles and rhonchi at the left base Cardiac: Normal S1-S2 no gallops systolic murmur 2/6 left sternal border. Abdomen: Soft bowel sounds present. Extremities: Trace edema no tenderness Neurologically: Awake, alert, oriented with well-coordinated movements. - Labs CBC & Chem 7: 10/27/16 03:40 10/27/16 03:40 Labs: Abnormal Lab Results - Last 24 Hours (Table) 10/26/16 10/26/16 10/26/16 Range/Units 16:40 19:50 22:30 WBC (3.8-10.6) k/uL Hgb (11.4-16.0) gm/dL MCHC (31.0-37.0) g/dL RDW (11.5-15.5) % Plt Count (150-450) k/uL Neutrophils # (Manual) (1.3-7.7) k/uL Lymphocytes # (Manual) (1.0-4.8) k/uL Chloride (98-107) mmol/L Carbon Dioxide (22-30) mmol/L BUN (7-17) mg/dL Glucose (74-99) mg/dL POC Glucose (mg/dL) (75-99) mg/dL Plasma Lactic Acid Adriano 4.0 H* (0.7-2.0) mmol/L Calcium (8.4-10.2) mg/dL AST (14-36) U/L Troponin I 0.480 H* (0.000-0.034) ng/mL Total Protein (6.3-8.2) g/dL Albumin (3.5-5.0) g/dL Influenza Type B (PCR) Detected H (Not Detectd) 10/27/16 10/27/16 10/27/16 Range/Units 03:40 03:40 03:40 WBC 27.4 H* (3.8-10.6) k/uL Hgb 10.9 L (11.4-16.0) gm/dL MCHC 30.3 L (31.0-37.0) g/dL RDW 20.0 H (11.5-15.5) % Plt Count 89 L (150-450) k/uL Neutrophils # (Manual) 26.3 H (1.3-7.7) k/uL Lymphocytes # (Manual) 0.3 L (1.0-4.8) k/uL Chloride 113 H (98-107) mmol/L Carbon Dioxide 15 L (22-30) mmol/L BUN 22 H (7-17) mg/dL Glucose 71 L (74-99) mg/dL POC Glucose (mg/dL) (75-99) mg/dL Plasma Lactic Acid Adriano (0.7-2.0) mmol/L Calcium 6.6 L (8.4-10.2) mg/dL AST 47 H (14-36) U/L Troponin I 0.364 H* (0.000-0.034) ng/mL Total Protein 5.8 L (6.3-8.2) g/dL Albumin 2.7 L (3.5-5.0) g/dL Influenza Type B (PCR) (Not Detectd) 10/27/16 Range/Units 04:47 WBC (3.8-10.6) k/uL Hgb (11.4-16.0) gm/dL MCHC (31.0-37.0) g/dL RDW (11.5-15.5) % Plt Count (150-450) k/uL Neutrophils # (Manual) (1.3-7.7) k/uL Lymphocytes # (Manual) (1.0-4.8) k/uL Chloride (98-107) mmol/L Carbon Dioxide (22-30) mmol/L BUN (7-17) mg/dL Glucose (74-99) mg/dL POC Glucose (mg/dL) 74 L (75-99) mg/dL Plasma Lactic Acid Adriano (0.7-2.0) mmol/L Calcium (8.4-10.2) mg/dL AST (14-36) U/L Troponin I (0.000-0.034) ng/mL Total Protein (6.3-8.2) g/dL Albumin (3.5-5.0) g/dL Influenza Type B (PCR) (Not Detectd) Assessment and Plan Plan: ASSESSMENT: 1. Pneumonia left lower lobe. 2. Influenza B. 3. acute on chronic renal failure improved. 4. Thrombocytopenia of unclear etiology suspect secondary to infection. 5. Possible diverticulitis. 6. Debility. PLAN: . Continue present medical regimen. Patient's condition clinically is improved today her urine output is better patient renal function is improved. White count is elevated but of number significant concern. Continue present antibiotics. Patient's followed by pulmonary as well. Reviewed care with patient and daughter.
[2016-10-27] MEDS: HYDROcodone/APAP 5-325MG 1 EACH TAB PO PRN (16:41)
[2016-10-27] MEDS ORDERED: FUROSEMIDE 10 MG/ML 4 ML VIAL IV STA (16:45)
[2016-10-27] MEDS ORDERED: IPRATROPIUM-ALBUTEROL 3 ML NEB INHALATION PRN (16:46)
[2016-10-27] MEDS ORDERED: IPRATROPIUM 0.5 MG/2.5 ML NEBU INHALATION PRN (16:46)
[2016-10-27] MEDS: DILTIAZEM 125 MG in SODIUM CHLORIDE 0.9% 100 ML IV SCH ×3 (18:30→19:33)
[2016-10-27] MEDS: IPRATROPIUM-ALBUTEROL 3 ML NEB INHALATION SCH (19:21)
[2016-10-27] MEDS ORDERED: IPRATROPIUM 0.5 MG/2.5 ML NEBU INHALATION SCH (20:00)
[2016-10-28] MEDS: DILTIAZEM 125 MG in SODIUM CHLORIDE 0.9% 100 ML IV SCH ×3 (01:27→17:44)
[2016-10-28] MEDS: CLINDAMYCIN 300 MG in DEXTROSE 5% IN WATER 50 ML IVPB SCH ×8 (01:28→17:45)
[2016-10-28 04:52] LABS: Anisocytosis Moderate; CH 26.7; CHCM 31.1; HCT 30.5 % (34.0-46.0); HDW 3.19; HGB 9.7 gm/dL (11.4-16.0); Hypochromasia Moderate; Immature Gran Flag Marked; MCH 27.3 pg (25.0-35.0); MCHC 31.8 g/dL (31.0-37.0); MCV 85.9 fL (80.0-100.0); Mean Platelet Volume 8.6; Microcytosis Slight; RBC 3.55 m/uL (3.80-5.40); RDW 20.2 % (11.5-15.5); WBC 13.6 k/uL (3.8-10.6); WBC (Perox) 14.37
[2016-10-28 05:31] LABS: ALT 23 U/L (9-52); AST 43 U/L (14-36); Alkaline Phosphatase 93 U/L (38-126); Anion Gap 11 mmol/L; Blood Urea Nitrogen 19 mg/dL (7-17); Carbon Dioxide 19 mmol/L (22-30); Chloride 108 mmol/L (98-107); Glucose 79 mg/dL (74-99); Non-African American GFR(MDRD) >60 (>60 ml/min/1.73 sqM); Phosphorous 3.1 mg/dL (2.5-4.5); Potassium 3.2 mmol/L (3.5-5.1); Sodium 138 mmol/L (137-145); Total Bilirubin 0.8 mg/dL (0.2-1.3); Total Protein 5.4 g/dL (6.3-8.2)
[2016-10-28 06:06] LABS: Add Differential Manual Differential
[2016-10-28 06:08] LABS: Nucleated Red Blood Cells 0 /100 WBC (0-0)
[2016-10-28 06:09] LABS: Manual Review Performed; Total Cells Counted 200
[2016-10-28 06:12] LABS: Ovalocytes Present; Toxic Granulation Present; Toxic Vacuolation Present
--- NOTE | 2016-10-28 06:57 | XR ---
EXAMINATION TYPE: XR chest 1V DATE OF EXAM: 10/28/2016 6:38 AM HISTORY: shortness of breath . REFERENCE: Previous study dated 326 7. FINDINGS: Heart is enlarged. There is vascular congestion and pulmonary edema. There are bilateral ef fusions, greater on the left IMPRESSION: CONTINUING CHANGES OF CONGESTIVE HEART FAILURE.
[2016-10-28] MEDS: POTASSIUM CHLORIDE ER 20 MEQ TAB.ER PO SCH ×4 (07:48→15:59)
[2016-10-28] MEDS: PANTOPRAZOLE 40 MG TABLET PO SCH (07:49)
[2016-10-28] MEDS: IPRATROPIUM-ALBUTEROL 3 ML NEB INHALATION SCH (08:00)
--- NOTE | 2016-10-28 08:17 | P.PN ---
Progress Note - Text The patient is a 81-year-old female patient of mine who was admitted over the weekend by Dr. Hand who was covering for me into the intensive care unit here at [facility]. The patient presented to the emergency room with weakness and cough. She was found to have markedly elevated lactic acid. Also acute renal failure and dehydration. Besides the cough she did have some diarrhea prior to admission for several days. On further testing there also appears to be possible of diverticulitis in the colon on CAT scan and also a urinary tract infection with gram-negative bacilli. Patient has been in the intensive care unit. Yesterday evening she developed atrial fibrillation with a rapid ventricular response but presently appears to be controlled and in sinus rhythm and regular. She has been treated with antibiotics in the form of clindamycin and Levaquin. She is ALLERGIC to penicillin. Her lactic acidosis and her renal failure has improved. She states she is feeling somewhat better this morning although overall tired and weak. Vital signs reveal temperature of 97.5 with a pulse of 76 and respirations 17- 26. Blood pressure is 90/42. And she is 91% saturated on 10 L high flow. Head and neck exam unremarkable. She is alert and oriented. Lungs are diminished at bases. Heart tones are regular without murmurs. Abdomen is nontender. No unusual edema noted. Neurologically she is alert. No cranial nerve deficits. No focal weakness noted. Laboratory: White count has actually decreased from 27,000 down to 13.6 this morning. Hemoglobin slightly lower at 9.7. Her platelet counts have been low but stable at 87 this morning. Sodium is 138 with a potassium down to 3.2. CO2 content is still low but improved up to 19. BUN of 19 with a creatinine of 0.8 given her GFR greater than 60 this morning. Calcium is 7.0. AST is only slightly elevated at 43 with other liver function tests good. Albumin that was low at 2.4. Her influenza B is positive. This morning she chest x-ray shows pulmonary vascular congestion with bilateral effusions. Although it appears to me her consolidation may be improving in the left lower lobe. We'll await from further reports from pulmonary medicine. Impressions and plans: Overall this 81-year-old female presented with multiple sources of infection. Left lower lobe pneumonia. Acute diverticulitis versus acute viral colitis. Also urinary tract infection with gram-negative rods. And positive influenza B. She presented with metabolic problems of lactic acidosis and acute renal failure which have improved. Overall we'll continue with IV antibiotics and her respiratory treatments as outlined by pulmonary medicine. Patient will be seen by cardiology for her new onset atrial fibrillation. Appears metabolically she is improving. Hypokalemia to be addressed. Prognosis still guarded though.
[2016-10-28] MEDS: ENOXAPARIN 30 MG/0.3 ML SYRINGE SQ SCH (08:30)
[2016-10-28] MEDS: OSELTAMIVIR 60 MG/10 ML ORAL SYRINGE PO SCH ×2 (08:32→20:27)
--- NOTE | 2016-10-28 11:19 | P.PN ---
Subjective Acute sepsis with acute pneumonia/community-acquired, acute urinary tract infection, and acute diverticulitis. And acute influenza infection. This is a 81-year-old female with history of COPD, GERD, presented to the ER with 1 week history of diarrhea. Her diarrhea was not associated with any abdominal pain, no melena, and no hematemesis. In the last few days the patient has been vomiting, and has been complaining of cough. Cough is productive with yellow phlegm, she has also been complaining of chills but no documented fever. Patient was also complaining of aches and pains, and mostly chest pain upon coughing. Patient could not keep any food down, in addition to all of this the patient has been complaining of slight shortness of breath upon evaluation in the ER, the patient was found to have left lower lobe pneumonia, evidence of diverticulitis or colitis, and evidence of urinary tract infection. Patient had no symptoms to suggest urinary tract infection, no dysuria frequency or urgency, she had no symptoms of GI bleeding, but she did have symptoms of pneumonia. Screening in the ER including a C. diff was negative, however influenza screen was positive by PCR. Patient was admitted, placed on antibiotics in the form of Levaquin, clindamycin, also placed on Tamiflu. In the ER her lactic acid was elevated, and she received fluid boluses, did not require any pressors for blood pressure. Initial lactic acid was around 8, follow-up lactic acid was around 4. At the time of my evaluation in the ICU, patient had no headache, no blurred vision, no dizziness, she did complain of cough, no wheezing, no documented fever, no chills, she did have episodes of nausea vomiting and diarrhea. Patient was reevaluated today on 10/27/2016, doing relatively well except for the fact that the patient required small dose of norepinephrine last night for a short Time and she remains on 2 g at this point which will be discontinued in the next hour. Patient did receive significant amount of fluids initially upon admission, and more fluid boluses were given last night. Her lactic acid seems to be significantly improved, it is down to 1.9 today. However her CBC is showing leukocytosis with WBC count of 27.4. Electrolytes are normal, anion gap is 13. Patient seems to have mostly a picture of hyperchloremic metabolic acidosis. All cultures are still pending. Chest x-ray continues to show significant infiltrate involving the left lower lobe, and there is some infiltrate in the right lower lobe/minimal. The patient is seen again today 10/28/2016 in follow-up in the intensive care unit. She is awake and alert in no acute distress. She did develop new onset atrial fibrillation with rapid ventricular response requiring Cardizem drip at 15 mg per hour. Her chest x-ray reveals evidence of congestive heart failure. She continues to require 10 L of high flow nasal cannula to maintain O2 saturations in the 90s. She is currently afebrile. Her white count has improved to 13.6. She is currently back in normal sinus rhythm. Potassium is being replaced. Objective - Vital Signs Vital signs: Vital Signs Temp 98.1 F 10/28/16 08:00 Pulse 86 10/28/16 11:00 Resp 24 10/28/16 11:00 BP 113/53 10/28/16 11:00 Pulse Ox 91 L 10/28/16 11:00 Intake & Output 10/27/16 10/28/16 10/28/16 18:59 06:59 18:59 Intake Total 9108.429 8299 486.75 Output Total 1085 1515 205 Balance 383.561 -271 281.75 Weight 77.1 kg 74 kg Intake: IV 925 375 Clindamycin 300 mg In 100 Dextrose 5% in Water 50 ml @ 100 mls/hr IVPB Q6HR AD Rx#:[id number] Sodium Chloride 0.9% 1, 825 375 000 ml @ 75 mls/hr IV . [id number] AD Rx#:[id number] Intake, IV Titration 1243.561 79 111.75 Amount Clindamycin 300 mg In 150 Dextrose 5% in Water 50 ml @ 100 mls/hr IVPB Q6HR AD Rx#:[id number] Diltiazem 125 mg In 111.75 Sodium Chloride 0.9% 100 ml @ 15 MG/HR 15 mls/hr IV .Q8H20M AD Rx#: [id number] Diltiazem 125 mg In 4 Sodium Chloride 0.9% 100 ml @ 5 MG/HR 5 mls/hr IV .Q24H AD Rx#:[id number] Magnesium Sulfate-D5w Pmx 200 1 gm In Dextrose/Water 1 100ml.bag @ 100 mls/hr IVPB Q1H AD Rx#: [id number] Norepinephrine 4 mg In 43.561 Sodium Chloride 0.9% 250 ml @ Titrate IV .Q0M AD Rx#:[id number] Sodium Chloride 0.9% 1, 200 000 ml @ 100 mls/hr IV . Q10H AD Rx#:[id number] Sodium Chloride 0.9% 1, 650 75 000 ml @ 75 mls/hr IV . [id number] AD Rx#:[id number] Oral 225 240 Output: Urine 1085 1515 205 Other: Voiding Method Indwelling Catheter Indwelling Catheter Indwelling Catheter - Exam GENERAL EXAM: Alert, comfortable in no apparent distress. HEAD: Normocephalic. EYES: Normal reaction of pupils, equal size. NOSE: Clear with pink turbinates. THROAT: No erythema or exudates. NECK: No masses, no JVD. CHEST: No chest wall deformity. LUNGS: Equal air entry with eczema by clitoral posterior bases. CVS: S1 and S2 normal with no audible murmurs, regular rhythm. ABDOMEN: No hepatosplenomegaly, normal bowel sounds, no guarding or rigidity. SPINE: No scoliosis or deformity SKIN: No rashes CENTRAL NERVOUS SYSTEM: No focal deficits, tone is normal in all 4 extremities. Extremities: There is no significant peripheral edema. No clubbing, no cyanosis. Peripheral pulses are intact. - Labs CBC & Chem 7: 10/28/16 04:15 10/28/16 09:23 Labs: Abnormal Lab Results - Last 24 Hours (Table) 10/28/16 10/28/16 10/28/16 Range/Units 04:15 04:15 09:23 WBC 13.6 H (3.8-10.6) k/uL RBC 3.55 L (3.80-5.40) m/uL Hgb 9.7 L (11.4-16.0) gm/dL Hct 30.5 L (34.0-46.0) % RDW 20.2 H (11.5-15.5) % Plt Count 87 L (150-450) k/uL Neutrophils # (Manual) 13.1 H (1.3-7.7) k/uL Lymphocytes # (Manual) 0.3 L (1.0-4.8) k/uL Potassium 3.2 L 3.0 L* (3.5-5.1) mmol/L Chloride 108 H (98-107) mmol/L Carbon Dioxide 19 L (22-30) mmol/L BUN 19 H (7-17) mg/dL Calcium 7.0 L (8.4-10.2) mg/dL AST 43 H (14-36) U/L Total Protein 5.4 L (6.3-8.2) g/dL Albumin 2.4 L (3.5-5.0) g/dL Assessment and Plan Plan: Impression: 1 Acute sepsis in a patient with acute influenza infection, complicated by pneumonia mostly involving the left lower lobe, and right lower lobe and colitis/diverticulitis. The exact source of her sepsis could also be related to her urinary tract infection as noted in her abnormal urinalysis. 2 Acute influenza infection, patient is presently on Tamiflu 3 acute bilateral pneumonia mostly involving the left lower lobe but is also involving the right lower lobe to some extent. This is felt to be pneumonia as a complication of acute influenza infection. 4 acute urinary tract infection 5 history of underlying COPD severity of which is not clear but possibly mild to moderate. 6 history of GERD without esophagitis. Plan: The patient was seen and evaluated by Dr. Vyas. We'll continue with her current medications including Tamiflu. We'll continue to titrate down her FiO2 will maintain O2 saturations in the 90s. Urine culture is pending initial results reveal gram-negative bacilli. Cultures reveal no growth to date. We will continue to follow make further recommendations based on her clinical status.
[2016-10-28] MEDS: LEVALBUTEROL NEB 1.25 MG/3 ML AMP INHALATION SCH ×3 (11:34→20:06)
[2016-10-28] MEDS: SODIUM CHLORIDE 0.9% 1,000 ML IV SCH (13:31)
[2016-10-28] MEDS ORDERED: LEVOFLOXACIN 500MG-D5W PMX 500 MG in DEXTROSE/WATER 1 100ML.BAG IVPB SCH (14:00)
[2016-10-28] MEDS: HYDROcodone/APAP 5-325MG 1 EACH TAB PO PRN (15:57)
[2016-10-28] MEDS: ALPRAZolam 0.5 MG TAB PO PRN (20:27)
--- NOTE | 2016-10-28 21:18 | CONS ---
DATE OF CONSULTATION: 81-year-old admitted by Dr. Jarvis and Dr. Hand. Consultation requested by Dr. Jarvis. Patient is admitted to the hospital. Patient is admitted to the hospital with pneumonia, diverticulitis and sepsis. She is known patient of chronic kidney disease, stage IV, CKD. The patient has not been feeling well for the last one week prior to admission. Patient gradually having ( ), also had some diarrhea in the last few days. Denies any orthopnea, paroxysmal nocturnal dyspnea. Patient has been running fever. Denies any major illnesses in the past, hypertension, diabetes, lung disease, liver disease, kidney disease. She has a history of chronic colitis. Patient's past history is remarkable for hysterectomy, appendectomy, and cholecystectomy, left knee surgery. Patient is a nonsmoker, quit smoking about 40 years ago, smoked for about 15 years, does not take alcoholic beverages. Current medications: 1. Xanax 0.25 mg. 2. Singulair 10 mg p.o. daily. 3. Imodium p.r.n. 4. Omeprazole 20 mg. 5. Aspirin 81 mg p.o. daily. 6. Pro-Air Inhalers on a p.r.n. basis. REVIEW OF SYSTEMS: Essentially unremarkable other than what is stated in the presenting illness. ENT unremarkable. CARDIAC: Denies any chest pain or palpitations. RESPIRATORY SYSTEM: Denies any shortness of breath. Does have cough without any phlegm. GASTROINTESTINAL: Denies any symptoms of gastrointestinal complaints. No genitourinary complaints. Constitutional: Not feeling well. Physical examination revealed a well-developed 81-year-old female appears to be chronically ill, not in acute distress with stable vital signs with a pulse rate of 104, respirations of 24, blood pressure of 110/70, respirations 20. Head normocephalic. HEENT unremarkable. Neck is supple. No thyroid enlargement. No JVD. CARDIAC EXAMINATION: Regular rate and rhythm. S1 and S2. Lungs are clinically clear to auscultation other than scattered rhonchi. ABDOMEN: Soft, no organomegaly. Active bowel sounds. Cardiac examination showed evidence of systolic murmur, grade 2/6. NEUROLOGIC: Unremarkable. LABORATORY DATA: White cell count is 24.6, hemoglobin 12.2, platelet count of 103,000. Liver enzymes are normal. EKG did not show any acute ischemic changes. In view of sepsis, we will withhold any cardiac work-up at the present time until the sepsis is under control. We may get an echocardiogram to assess LV function. CT of the abdomen showed diverticulitis without any clear-cut abscess sigmoid colon. ASSESSMENT: 1. Sepsis. 2. Pneumonia. 3. Chronic kidney disease, stage IV. 4. Thrombocytopenia. 5. Acute diverticulitis. RECOMMENDATIONS: Cardiac -patterson patient's status is stable. Patient is on antibiotics at the present time with Levaquin and clindamycin, concur with current therapy. We will get an echocardiogram to assess LV function. Patient has no clinical symptoms suggestive any cardiac problems.
[2016-10-29 00:24] LABS: ABG Base Excess -4.9 mmol/L; ABG HCO3 20 mmol/L (21-25); ABG PCO2 41 mmHg (35-45); ABG PH 7.31 (7.35-7.45); ABG PO2 95 mmHg (83-108); ABG TCO2 21 mmol/L (19-24)
[2016-10-29] MEDS ORDERED: PROPOFOL 50 ML IV ONE ×2 (00:29→08:20)
[2016-10-29] MEDS: CLINDAMYCIN 300 MG in DEXTROSE 5% IN WATER 50 ML IVPB SCH ×4 (00:33→06:04)
[2016-10-29] MEDS ORDERED: PROPOFOL 10 MG/ML 20 ML VIAL IV ONE (00:45)
[2016-10-29] MEDS: PROPOFOL 500 MG in EMPTY BAG 1 BAG IV SCH ×7 (01:01→21:48)
--- NOTE | 2016-10-29 01:16 | XR ---
INDICATION: Tube placement COMPARISON: CXR 10/28/16 FINDINGS: Single frontal view of the chest is provided. There has been interval placement of endotracheal tube with tip located 3 cm above the brit. Endogastric tube has been placed and extends into the stomach. There has been no other interval change. There is stable cardiomegaly, pulmonary vascular congestion, and interstitial edema. There are persistent small bilateral pleural effusions with bibasilar compressive atelectasis. No pneumothorax. There are no acute osseous findings. IMPRESSION: 1. Interval placement of endotracheal tube and endogastric tube. 2. Stable congestive heart failure with small bilateral pleural effusions.
[2016-10-29 01:37] LABS: ABG HCO3 18 mmol/L (21-25); ABG PCO2 34 mmHg (35-45); ABG PH 7.35 (7.35-7.45); ABG PO2 207 mmHg (83-108)
[2016-10-29 01:38] LABS: ABG Base Excess -6.2 mmol/L; ABG TCO2 19 mmol/L (19-24)
[2016-10-29] MEDS: POTASSIUM CHLORIDE ORAL LIQUID 40 MEQ/30 ML CUP NG-TUBE SCH ×2 (02:50→04:08)
[2016-10-29] MEDS: SODIUM CHLORIDE 0.9% 1,000 ML IV SCH ×2 (02:50→21:47)
[2016-10-29 05:05] LABS: Anisocytosis Moderate; CH 26.5; CHCM 29.9; HCT 28.2 % (34.0-46.0); HDW 3.08; HGB 8.8 gm/dL (11.4-16.0); Hypochromasia Marked; Immature Gran Flag Slight; MCH 27.8 pg (25.0-35.0); MCHC 31.3 g/dL (31.0-37.0); MCV 88.7 fL (80.0-100.0); Mean Platelet Volume 8.6; RBC 3.17 m/uL (3.80-5.40); RDW 20.3 % (11.5-15.5); WBC 7.7 k/uL (3.8-10.6); WBC (Perox) 8.25
[2016-10-29 05:43] LABS: ALT 28 U/L (9-52); AST 38 U/L (14-36); Alkaline Phosphatase 134 U/L (38-126); Anion Gap 6 mmol/L; Blood Urea Nitrogen 20 mg/dL (7-17); Carbon Dioxide 18 mmol/L (22-30); Chloride 110 mmol/L (98-107); Glucose 99 mg/dL (74-99); Magnesium 2.2 mg/dL (1.6-2.3); Non-African American GFR(MDRD) >60 (>60 ml/min/1.73 sqM); Phosphorous 2.6 mg/dL (2.5-4.5); Potassium 5.3 mmol/L (3.5-5.1); Sodium 134 mmol/L (137-145); Total Protein 5.3 g/dL (6.3-8.2)
[2016-10-29 05:49] LABS: Add Differential Manual Differential
[2016-10-29 05:59] LABS: Metamyelocytes % 1.5 %; Nucleated Red Blood Cells 0 /100 WBC (0-0); Total Cells Counted 200
[2016-10-29 06:01] LABS: Ovalocytes Present
[2016-10-29 06:02] LABS: Polychromasia Present; Toxic Vacuolation Present
[2016-10-29] MEDS ORDERED: SODIUM CHLORIDE 0.9% 1,000 ML IV ONE (06:16)
[2016-10-29] MEDS: LEVALBUTEROL NEB 1.25 MG/3 ML AMP INHALATION SCH ×4 (07:24→18:49)
--- NOTE | 2016-10-29 07:54 | XR ---
EXAMINATION TYPE: XR chest 1V portable DATE OF EXAM: 10/29/2016 6:22 AM COMPARISON: 10/29/2016 HISTORY: Tube placed TECHNIQUE: Single frontal view of the chest is obtained. FINDINGS: ET and NG tube stable with bilateral infiltrate and small effusion. Mild central interstit ial pattern. No pneumothorax. IMPRESSION: 1. Bilateral infiltrate and small effusion correlate for mild venous congestion.
--- NOTE | 2016-10-29 08:05 | P.PN ---
Progress Note - Text The patient is a 81-year-old female who was admitted on the with multiple sources of infection, sepsis and systemic inflammatory response syndrome. She is growing out gram-negative E. coli from the urine which is sensitive to the Levaquin. She also has underlying pneumonia and also likely diverticulitis on her CAT scan. Apparently with worsening respiratory failure she was placed on the ventilator yesterday. This morning overall she seems sedated on the respirator. Respirations are 20 on the vent. Pulses in the 60s and regular. Blood pressure last recorded at 83/42. She is 96% on % FiO2. Lungs are generally clear with few scattered rhonchi. Heart tones are regular. No murmurs. Abdomen appears soft and nontender. No masses. No unusual edema. Compression stockings intact. No definite new neurological changes. She does appear to be sedated on the ventilator. Laboratory: White count is 7.7 with a hemoglobin 8.8 and a platelet count low but stable at 92. Sodium is 134 with a potassium 5.3 and a CO2 content of 18. Anion gap is 6. BUN is 20 with a creatinine of 0.81 given her GFR greater than 60. Albumin is low at 2.3. Chest x-ray is reported with bibasilar infiltrates and small effusions. Once again her urine grew out E. coli Impressions and plans: The patient with respiratory failure requiring ventilator support. Relative hypotension related to underlying sepsis from multiple sources. A long discussion with family/daughter at bedside. We will continue cardiovascular support at this time. Antibiotics. Await further recommendations from pulmonary medicine and cardiology. Prognosis is guarded.
[2016-10-29] MEDS: PANTOPRAZOLE 40 MG TABLET PO SCH (08:08)
[2016-10-29] MEDS: ENOXAPARIN 40 MG/0.4 ML SYRINGE SQ SCH (08:09)
[2016-10-29] MEDS: OSELTAMIVIR 60 MG/10 ML ORAL SYRINGE PO SCH ×2 (08:21→21:45)
[2016-10-29 08:36] LABS: ABG Base Excess -8.3 mmol/L; ABG HCO3 17 mmol/L (21-25); ABG PCO2 34 mmHg (35-45); ABG PH 7.31 (7.35-7.45); ABG PO2 81 mmHg (83-108); ABG TCO2 18 mmol/L (19-24)
[2016-10-29] MEDS ORDERED: NOREPINEPHRINE 4 MG-0.9% NS PMX 250 ML IV ONE (09:07)
[2016-10-29] MEDS: CHLORHEXIDINE GLUCONATE 15 ML CUP MUCOUS MEM SCH ×2 (09:13→21:23)
[2016-10-29] MEDS: NOREPINEPHRINE 4 MG in SODIUM CHLORIDE 0.9% 250 ML IV SCH ×2 (10:00→21:47)
--- NOTE | 2016-10-29 10:31 | ECHOF ---
Referral Reason:lv function MEASUREMENTS -------- HEIGHT: 152.4 cm WEIGHT: 75.7 kg BP: 81/46 RVIDd: 2.4 cm (< 3.3) IVSd: 1.2 cm (0.6 - 1.1) LVIDd: 3.9 cm (3.9 - 5.3) LVPWd: 1.1 cm (0.6 - 1.1) IVSs: 1.5 cm LVIDs: 3.2 cm LVPWs: 1.5 cm LA Diam: 3.7 cm (2.7 - 3.8) LAESV Index (A-L): 30.71 ml/m Ao Diam: 2.9 cm (2.0 - 3.7) AV Cusp: 1.7 cm (1.5 - 2.6) MV EXCURSION: 21.866 mm (> 18.000) MV EF SLOPE: 112 mm/s (70 - 150) EPSS: 0.5 cm MV E Jovanni: 1.18 m/s MV DecT: 226 ms MV A Jovanni: 0.55 m/s MV E/A Ratio: 2.17 RAP: 5.00 mmHg RVSP: 29.25 mmHg FINDINGS -------- Sinus rhythm. This was a technically good study. The left ventricular size is normal. There is borderline concentric left ventricular hypertrophy. Overall left ventricular systolic function is mild-moderately impaired with, an EF between 40 - 45 %. Inferiorlateral Hypokinesis The right ventricle is normal in size and function. LA is midly dilated 29-33ml/m2. The right atrium is normal in size. Aortic valve is trileaflet and is mildly thickened. Mild mitral annular calcification present. Moderate mitral regurgitation is present. [id number] tricuspid regurgitation present. Right ventricular systolic pressure is normal at < 35 mmHg. Trace/mild (physiologic) pulmonic regurgitation. The aortic root size is normal. The inferior vena cava is mildly dilated. There is no pericardial effusion. CONCLUSIONS -------- 1. Sinus rhythm. 2. Right ventricular systolic pressure is normal at < 35 mmHg. 3. Trace/mild (physiologic) pulmonic regurgitation. 4. The aortic root size is normal. 5. The inferior vena cava is mildly dilated. 6. There is no pericardial effusion. 7. This was a technically good study. 8. There is borderline concentric left ventricular hypertrophy. 9. Overall left ventricular systolic function is mild-moderately impaired with, an EF between 40 - 45 %. 10. Inferiorlateral Hypokinesis 11. LA is midly dilated 29-33ml/m2. 12. Aortic valve is trileaflet and is mildly thickened. 13. Mild mitral annular calcification present. 14. Moderate mitral regurgitation is present. ASSISTANT [employer]ENDER: Rosi Basilio RDCS
--- NOTE | 2016-10-29 11:07 | P.PN ---
Subjective Acute sepsis with acute pneumonia/community-acquired, acute urinary tract infection, and acute diverticulitis. And acute influenza infection. This is a 81-year-old female with history of COPD, GERD, presented to the ER with 1 week history of diarrhea. Her diarrhea was not associated with any abdominal pain, no melena, and no hematemesis. In the last few days the patient has been vomiting, and has been complaining of cough. Cough is productive with yellow phlegm, she has also been complaining of chills but no documented fever. Patient was also complaining of aches and pains, and mostly chest pain upon coughing. Patient could not keep any food down, in addition to all of this the patient has been complaining of slight shortness of breath upon evaluation in the ER, the patient was found to have left lower lobe pneumonia, evidence of diverticulitis or colitis, and evidence of urinary tract infection. Patient had no symptoms to suggest urinary tract infection, no dysuria frequency or urgency, she had no symptoms of GI bleeding, but she did have symptoms of pneumonia. Screening in the ER including a C. diff was negative, however influenza screen was positive by PCR. Patient was admitted, placed on antibiotics in the form of Levaquin, clindamycin, also placed on Tamiflu. In the ER her lactic acid was elevated, and she received fluid boluses, did not require any pressors for blood pressure. Initial lactic acid was around 8, follow-up lactic acid was around 4. At the time of my evaluation in the ICU, patient had no headache, no blurred vision, no dizziness, she did complain of cough, no wheezing, no documented fever, no chills, she did have episodes of nausea vomiting and diarrhea. Patient was reevaluated today on 10/27/2016, doing relatively well except for the fact that the patient required small dose of norepinephrine last night for a short Time and she remains on 2 g at this point which will be discontinued in the next hour. Patient did receive significant amount of fluids initially upon admission, and more fluid boluses were given last night. Her lactic acid seems to be significantly improved, it is down to 1.9 today. However her CBC is showing leukocytosis with WBC count of 27.4. Electrolytes are normal, anion gap is 13. Patient seems to have mostly a picture of hyperchloremic metabolic acidosis. All cultures are still pending. Chest x-ray continues to show significant infiltrate involving the left lower lobe, and there is some infiltrate in the right lower lobe/minimal. The patient is seen again today 10/28/2016 in follow-up in the intensive care unit. She is awake and alert in no acute distress. She did develop new onset atrial fibrillation with rapid ventricular response requiring Cardizem drip at 15 mg per hour. Her chest x-ray reveals evidence of congestive heart failure. She continues to require 10 L of high flow nasal cannula to maintain O2 saturations in the 90s. She is currently afebrile. Her white count has improved to 13.6. She is currently back in normal sinus rhythm. Potassium is being replaced. She is seen again today 10/21/2016 in follow-up in the intensive care unit. Unfortunately she did have ongoing dyspnea and difficulty tolerating any form of mask over her face fractionation. She was subsequently intubated and placed on the mechanical ventilator. She is currently on assist control of 20 tidal volume 400 FiO2 50% and a PEEP of 5. Arterial blood gases reveal pO2 of 81, pCO2 34, pH 7.31. She is currently sedated on to prevent at 30 mcg/kg/m, levophed at 4 mcg/m and a 0.9 normal saline at 75 mL per hour. Cardizem drip currently on hold. Her urine output has improved this morning currently 35-40 mL 's per hour. Today's chest x-ray reveals bilateral infiltrate and small effusion with some mild venous congestion. She is currently afebrile. No leukocytosis. Her urine tests reveal evidence of S3 she coli. She does remain on antibiotics in the form of Levaquin and clindamycin. Objective - Vital Signs Vital signs: Vital Signs Temp 97.8 F 10/29/16 08:00 Pulse 64 10/29/16 10:00 Resp 22 10/29/16 10:00 BP 95/48 10/29/16 10:00 Pulse Ox 94 L 10/29/16 10:00 Intake & Output 10/28/16 10/29/16 10/29/16 18:59 06:59 18:59 Intake Total 1236.75 2305.974 2335.957 Output Total 635 610 110 Balance 601.75 2938.741 1871.957 Weight 74 kg 75.8 kg 75.8 kg Intake: IV 950 1925 5 Clindamycin 300 mg In 50 100 Dextrose 5% in Water 50 ml @ 100 mls/hr IVPB Q6HR AD Rx#:[id number] Sodium Chloride 0.9% 1, 900 1825 2075 000 ml @ 75 mls/hr IV . [id number] AD Rx#:[id number] Intake, IV Titration 286.75 200.974 260.957 Amount Clindamycin 300 mg In 50 Dextrose 5% in Water 50 ml @ 100 mls/hr IVPB Q6HR AD Rx#:[id number] Diltiazem 125 mg In 236.75 125.000 Sodium Chloride 0.9% 100 ml @ 15 MG/HR 15 mls/hr IV .Q8H20M AD Rx#: [id number] Norepinephrine 4 mg In 210.439 Sodium Chloride 0.9% 250 ml @ Titrate IV .Q0M DA Rx#:[id number] Propofol 500 mg In Empty 75.974 50.518 Bag 1 bag @ Titrate IV . Q0M AD Rx#:[id number] Oral 150 Other 30 Output: Urine 635 610 110 Other: Voiding Method Indwelling Catheter Indwelling Catheter - Exam GENERAL EXAM: Intubated, sedated.. HEAD: Normocephalic. EYES: Sluggish reaction of pupils, equal size. NOSE: Clear with pink turbinates. THROAT: Oral endotracheal and gastric tube secured in place. No erythema or exudates. NECK: No masses, no JVD. CHEST: No chest wall deformity. LUNGS: Equal air entry with eczema by clitoral posterior bases. CVS: S1 and S2 normal with no audible murmurs, regular rhythm. ABDOMEN: No hepatosplenomegaly, normal bowel sounds, no guarding or rigidity. Extremities: There is no significant peripheral edema. No clubbing, no cyanosis. Peripheral pulses are intact. - Labs CBC & Chem 7: 10/29/16 04:35 10/29/16 04:35 Labs: Abnormal Lab Results - Last 24 Hours (Table) 10/28/16 10/29/16 10/29/16 Range/Units 12:03 00:17 01:36 RBC (3.80-5.40) m/uL Hgb (11.4-16.0) gm/dL Hct (34.0-46.0) % RDW (11.5-15.5) % Plt Count (150-450) k/uL Lymphocytes # (Manual) (1.0-4.8) k/uL ABG pH 7.31 L (7.35-7.45) ABG pCO2 34 L (35-45) mmHg ABG pO2 207 H (83-108) mmHg ABG HCO3 20 L 18 L (21-25) mmol/L ABG Total CO2 (19-24) mmol/L ABG O2 Saturation 99.0 H (94-97) % Sodium (137-145) mmol/L Potassium 3.2 L (3.5-5.1) mmol/L Chloride (98-107) mmol/L Carbon Dioxide (22-30) mmol/L BUN (7-17) mg/dL Calcium (8.4-10.2) mg/dL AST (14-36) U/L Alkaline Phosphatase (38-126) U/L Total Protein (6.3-8.2) g/dL Albumin (3.5-5.0) g/dL 10/29/16 10/29/16 10/29/16 Range/Units 04:35 04:35 07:51 RBC 3.17 L (3.80-5.40) m/uL Hgb 8.8 L (11.4-16.0) gm/dL Hct 28.2 L (34.0-46.0) % RDW 20.3 H (11.5-15.5) % Plt Count 92 L (150-450) k/uL Lymphocytes # (Manual) 0.4 L (1.0-4.8) k/uL ABG pH 7.31 L (7.35-7.45) ABG pCO2 34 L (35-45) mmHg ABG pO2 81 L (83-108) mmHg ABG HCO3 17 L (21-25) mmol/L ABG Total CO2 18 L (19-24) mmol/L ABG O2 Saturation (94-97) % Sodium 134 L (137-145) mmol/L Potassium 5.3 H (3.5-5.1) mmol/L Chloride 110 H (98-107) mmol/L Carbon Dioxide 18 L (22-30) mmol/L BUN 20 H (7-17) mg/dL Calcium 7.0 L (8.4-10.2) mg/dL AST 38 H (14-36) U/L Alkaline Phosphatase 134 H (38-126) U/L Total Protein 5.3 L (6.3-8.2) g/dL Albumin 2.3 L (3.5-5.0) g/dL Assessment and Plan Plan: Impression: 1 Acute sepsis in a patient with acute influenza infection, complicated by pneumonia mostly involving the left lower lobe, and right lower lobe and colitis /diverticulitis. The exact source of her sepsis could also be related to her urinary tract infection as noted in her abnormal urinalysis. 2 Acute influenza infection, patient is presently on Tamiflu 3 acute bilateral pneumonia mostly involving the left lower lobe but is also involving the right lower lobe to some extent. This is felt to be pneumonia as a complication of acute influenza infection. Progressively worsen requiring intubation and mechanical ventilatory support early this morning. 4 acute urinary tract infection 5 history of underlying COPD severity of which is not clear but possibly mild to moderate. 6 history of GERD without esophagitis. Plan: The patient was seen and evaluated by Dr. Vyas. Her chest x-ray, labs and ABGs were reviewed. We'll continue with her current medications including Tamiflu. We will keep her intubated for the next 24 hours. Tomorrow will start daily interruption of sedation and weaning parameters. Her daughter is at the bedside and agreeable to the plan. We also discussed with her CODE STATUS and the potential for long-term ventilatory support requiring tracheostomy and PEG tube insertions. Currently the patient will remain a full code. The daughter is a registered nurse and aware of the present options and will have further discussions with her stepfather on a day-to-day basis. We will continue to follow and make further recommendations based on her clinical status. Critical care time 38 minutes. Time with Patient: Greater than 30
[2016-10-29] MEDS: DILTIAZEM 125 MG in SODIUM CHLORIDE 0.9% 100 ML IV SCH ×3 (11:10→21:23)
--- NOTE | 2016-10-29 18:12 | PN ---
The patient is a 81-year-old female admitted by Dr. Jarvis. Consultation requested by Dr. Jarvis. REASON FOR CONSULTATION: Cardiac evaluation and treatment. Patient was seen in consultation. The patient was admitted to the hospital with pneumonia, sepsis, diverticulitis and patient's condition deteriorated and required intubation. The patient is on also Norepinephrine to support the blood pressure. Patient is in and out of atrial fibrillation. Patient is right now in sinus rhythm with a pulse rate of 67 beats per minute, blood pressure 101/89, respirations mechanical respiratory, 22 beats a minute. The patient is sedated. Vital signs stable. Lungs are clinically clear except for crackles over the lung perez. CARDIAC EXAMINATION: S1 and S2. ABDOMEN: Soft, no organomegaly. Patient will be continued on supportive care. Will continue to follow with interest. Patient's echocardiogram showed 40 to 45% ejection fraction. Patient's prognosis is guarded in spite of therapy.
[2016-10-30] MEDS: PROPOFOL 500 MG in EMPTY BAG 1 BAG IV SCH ×6 (00:23→19:15)
[2016-10-30 04:45] LABS: Anisocytosis Moderate; Aty Lym Flag Slight; CH 26.7; CHCM 30.3; HCT 31.4 % (34.0-46.0); HDW 3.21; HGB 9.7 gm/dL (11.4-16.0); Hypochromasia Marked; Immature Gran Flag Marked; MCH 27.2 pg (25.0-35.0); MCHC 30.8 g/dL (31.0-37.0); MCV 88.4 fL (80.0-100.0); Mean Platelet Volume 8.3; Microcytosis Slight; RBC 3.55 m/uL (3.80-5.40); RDW 20.4 % (11.5-15.5); WBC 7.2 k/uL (3.8-10.6); WBC (Perox) 7.65
[2016-10-30 05:04] LABS: Anion Gap 8 mmol/L; Blood Urea Nitrogen 13 mg/dL (7-17); Carbon Dioxide 19 mmol/L (22-30); Chloride 116 mmol/L (98-107); Glucose 109 mg/dL (74-99); Magnesium 2.1 mg/dL (1.6-2.3); Non-African American GFR(MDRD) >60 (>60 ml/min/1.73 sqM); Potassium 4.1 mmol/L (3.5-5.1); Sodium 143 mmol/L (137-145)
[2016-10-30 05:22] LABS: Add Differential Manual Differential
[2016-10-30 05:27] LABS: Nucleated Red Blood Cells 0 /100 WBC (0-0)
[2016-10-30 05:28] LABS: Manual Review Performed; Promyelocytes % 1.5 %; Total Cells Counted 200
[2016-10-30 05:30] LABS: Ovalocytes Present
[2016-10-30 05:38] LABS: ABG PCO2 34 mmHg (35-45); ABG PH 7.36 (7.35-7.45); ABG PO2 99 mmHg (83-108)
[2016-10-30 05:39] LABS: ABG Base Excess -6.2 mmol/L; ABG HCO3 18 mmol/L (21-25); ABG TCO2 19 mmol/L (19-24)
[2016-10-30] MEDS: SODIUM CHLORIDE 0.9% 1,000 ML IV SCH ×2 (05:51→17:48)
[2016-10-30] MEDS: DILTIAZEM 125 MG in SODIUM CHLORIDE 0.9% 100 ML IV SCH ×3 (07:16→16:26)
--- NOTE | 2016-10-30 07:26 | XR ---
EXAMINATION TYPE: XR chest 1V portable DATE OF EXAM: 10/30/2016 6:12 AM COMPARISON: 10/29/2016 HISTORY: SOB, Follow Up FINDINGS: Indwelling tubes and catheters are unchanged. No change in bibasilar opacities. Stable appearance of the cardio-mediastinal structures at this time. Pleural effusion unchanged. IMPRESSION: 1. Stable portable chest. Clinical correlation and follow up until resolution is recommended.
[2016-10-30] MEDS: LEVALBUTEROL NEB 1.25 MG/3 ML AMP INHALATION SCH ×3 (07:30→19:48)
[2016-10-30] MEDS: CHLORHEXIDINE GLUCONATE 15 ML CUP MUCOUS MEM SCH ×2 (08:21→21:30)
[2016-10-30] MEDS: ENOXAPARIN 40 MG/0.4 ML SYRINGE SQ SCH (08:23)
[2016-10-30] MEDS: PANTOPRAZOLE 40 MG TABLET PO SCH (08:23)
--- NOTE | 2016-10-30 08:30 | P.PN ---
Progress Note - Text The patient is a 81-year-old female who was admitted on the with pneumonia and other multiple sources for infection. She also grew out an E. coli organism from the urine. Blood cultures have been negative. There was also a possibility of colitis of the sigmoid colon on CAT scan. The patient developed respiratory failure, ventilator dependent. And remains in the intensive care unit here at [facility]. Vital signs reveal though her heart rate back up into the 130s with intermittent atrial fibrillation. Respiratory rate is 16. Blood pressure is 99 /63 on 2 mics of norepinephrine. She is 96% on FiO2 of 40. Lungs are clear anteriorly. Heart tones are tachycardia at this time and irregular. No abdominal discomfort or tenderness noted. No unusual edema. Patient is sedated at this time. Laboratory values reveal white count 7.2 with a hemoglobin 9.7 and a platelet count of 121. Sodium 143 with potassium 4.1 and a CO2 content of 19. BUN 13 with a creatinine of 13 and given her GFR greater than 60. Chest x-ray appears stable compared to previous. Impressions and plans: Discussion with daughter and staff at bedside this morning. Patient being continued on ventilator support with possible weaning today depending clinical response. Intermittent atrial fibrillation to be addressed. Continue with antibiotics and other supportive care. Daughter's questions answered as best as possible. Prognosis still guarded.
[2016-10-30] MEDS: OSELTAMIVIR 60 MG/10 ML ORAL SYRINGE PO SCH ×2 (08:56→21:30)
--- NOTE | 2016-10-30 10:25 | P.PN ---
Subjective Acute sepsis with acute pneumonia/community-acquired, acute urinary tract infection, and acute diverticulitis. And acute influenza infection. This is a 81-year-old female with history of COPD, GERD, presented to the ER with 1 week history of diarrhea. Her diarrhea was not associated with any abdominal pain, no melena, and no hematemesis. In the last few days the patient has been vomiting, and has been complaining of cough. Cough is productive with yellow phlegm, she has also been complaining of chills but no documented fever. Patient was also complaining of aches and pains, and mostly chest pain upon coughing. Patient could not keep any food down, in addition to all of this the patient has been complaining of slight shortness of breath upon evaluation in the ER, the patient was found to have left lower lobe pneumonia, evidence of diverticulitis or colitis, and evidence of urinary tract infection. Patient had no symptoms to suggest urinary tract infection, no dysuria frequency or urgency, she had no symptoms of GI bleeding, but she did have symptoms of pneumonia. Screening in the ER including a C. diff was negative, however influenza screen was positive by PCR. Patient was admitted, placed on antibiotics in the form of Levaquin, clindamycin, also placed on Tamiflu. In the ER her lactic acid was elevated, and she received fluid boluses, did not require any pressors for blood pressure. Initial lactic acid was around 8, follow-up lactic acid was around 4. At the time of my evaluation in the ICU, patient had no headache, no blurred vision, no dizziness, she did complain of cough, no wheezing, no documented fever, no chills, she did have episodes of nausea vomiting and diarrhea. Patient was reevaluated today on 10/27/2016, doing relatively well except for the fact that the patient required small dose of norepinephrine last night for a short Time and she remains on 2 g at this point which will be discontinued in the next hour. Patient did receive significant amount of fluids initially upon admission, and more fluid boluses were given last night. Her lactic acid seems to be significantly improved, it is down to 1.9 today. However her CBC is showing leukocytosis with WBC count of 27.4. Electrolytes are normal, anion gap is 13. Patient seems to have mostly a picture of hyperchloremic metabolic acidosis. All cultures are still pending. Chest x-ray continues to show significant infiltrate involving the left lower lobe, and there is some infiltrate in the right lower lobe/minimal. The patient is seen again today 10/28/2016 in follow-up in the intensive care unit. She is awake and alert in no acute distress. She did develop new onset atrial fibrillation with rapid ventricular response requiring Cardizem drip at 15 mg per hour. Her chest x-ray reveals evidence of congestive heart failure. She continues to require 10 L of high flow nasal cannula to maintain O2 saturations in the 90s. She is currently afebrile. Her white count has improved to 13.6. She is currently back in normal sinus rhythm. Potassium is being replaced. She is seen again today 10/29/2016 in follow-up in the intensive care unit. Unfortunately she did have ongoing dyspnea and difficulty tolerating any form of mask over her face fractionation. She was subsequently intubated and placed on the mechanical ventilator. She is currently on assist control of 20 tidal volume 400 FiO2 50% and a PEEP of 5. Arterial blood gases reveal pO2 of 81, pCO2 34, pH 7.31. She is currently sedated on to prevent at 30 mcg/kg/m, levophed at 4 mcg/m and a 0.9 normal saline at 75 mL per hour. Cardizem drip currently on hold. Her urine output has improved this morning currently 35-40 mL 's per hour. Today's chest x-ray reveals bilateral infiltrate and small effusion with some mild venous congestion. She is currently afebrile. No leukocytosis. Her urine tests reveal evidence of S3 she coli. She does remain on antibiotics in the form of Levaquin and clindamycin. The patient is seen again today 10/30/2016 in follow-up. She remains intubated on the mechanical ventilator and assist control of 20 tidal volume 400 FiO2 50% and a PEEP of 5. Morning blood gases revealed a pO2 of 99, pCO2 33.5, pH 7.36. She was given a and direction of sedation for approximate one-hour however the patient developed significant tachycardia with A. fib and RVR at 170 her O2 sat saturations were dropping into the 80s and she was tachypneic and restless. She has been since resedate he currently on to prevent at 40 mcg/kg/m. She has a 0.9 at 75 MLS per hour. Her levo fed as I 4 mcg/m. Today's chest x-ray continues to show bilateral infiltrates and small pleural effusions. She is receiving nutrition via tube feedings of Vital HP at 25 mL per hour. She remains on Levaquin and Tamiflu. Objective - Vital Signs Vital signs: Vital Signs Temp 98.3 F 10/30/16 03:00 Pulse 141 H 10/30/16 07:00 Resp 17 10/30/16 07:00 BP 99/63 10/30/16 07:00 Pulse Ox 96 10/30/16 07:00 Intake & Output 10/29/16 10/30/16 10/30/16 18:59 06:59 18:59 Intake Total 3190.912 1630.582 387.888 Output Total 750 1080 275 Balance 2440.912 550.582 112.888 Weight 75.8 kg 82.4 kg Intake: IV 2750 900 150 Sodium Chloride 0.9% 1, 2750 900 150 000 ml @ 75 mls/hr IV . [id number] [facility] Rx#:[id number] Intake, IV Titration 355.912 555.582 82.888 Amount Diltiazem 125 mg In 8.250 Sodium Chloride 0.9% 100 ml @ 5 MG/HR 5 mls/hr IV .Q24H [facility] Rx#:[id number] Norepinephrine 4 mg In 210.439 369.570 24.638 Sodium Chloride 0.9% 250 ml @ Titrate IV .Q0M [facility] Rx#:[id number] Propofol 500 mg In Empty 145.473 186.012 50 Bag 1 bag @ Titrate IV . Q0M [facility] Rx#:[id number] Tube Feeding 85 175 125 Other 30 Output: Urine 750 1080 275 Other: Voiding Method Indwelling Catheter Indwelling Catheter - Exam GENERAL EXAM: Intubated, sedated.. HEAD: Normocephalic. EYES: Sluggish reaction of pupils, equal size. NOSE: Clear with pink turbinates. THROAT: Oral endotracheal and gastric tube secured in place. No erythema or exudates. NECK: No masses, no JVD. CHEST: No chest wall deformity. LUNGS: Equal air entry with eczema by clitoral posterior bases. CVS: S1 and S2 normal with no audible murmurs, regular rhythm. ABDOMEN: No hepatosplenomegaly, normal bowel sounds, no guarding or rigidity. Extremities: There is no significant peripheral edema. No clubbing, no cyanosis. Peripheral pulses are intact. - Labs CBC & Chem 7: 10/30/16 04:06 10/30/16 04:06 Labs: Abnormal Lab Results - Last 24 Hours (Table) 10/30/16 10/30/16 10/30/16 Range/Units 04:06 04:06 05:15 RBC 3.55 L (3.80-5.40) m/uL Hgb 9.7 L (11.4-16.0) gm/dL Hct 31.4 L (34.0-46.0) % MCHC 30.8 L (31.0-37.0) g/dL RDW 20.4 H (11.5-15.5) % Plt Count 121 L (150-450) k/uL Lymphocytes # (Manual) 0.9 L (1.0-4.8) k/uL ABG pCO2 34 L (35-45) mmHg ABG HCO3 18 L (21-25) mmol/L ABG O2 Saturation 98.0 H (94-97) % Chloride 116 H (98-107) mmol/L Carbon Dioxide 19 L (22-30) mmol/L Glucose 109 H (74-99) mg/dL Calcium 7.0 L (8.4-10.2) mg/dL Phosphorus 2.0 L (2.5-4.5) mg/dL Microbiology - Last 24 Hours (Table) 10/29/16 00:55 Gram Stain - Preliminary Sputum Sputum Culture - Preliminary Assessment and Plan Plan: Impression: 1 Acute sepsis in a patient with acute influenza infection, complicated by pneumonia mostly involving the left lower lobe, and right lower lobe and colitis /diverticulitis. The exact source of her sepsis could also be related to her urinary tract infection as noted in her abnormal urinalysis. 2 Acute influenza infection, patient is presently on Tamiflu 3 acute bilateral pneumonia mostly involving the left lower lobe but is also involving the right lower lobe to some extent. This is felt to be pneumonia as a complication of acute influenza infection. Progressively worsen requiring intubation and mechanical ventilatory support. 4 acute urinary tract infection 5 history of underlying COPD severity of which is not clear but possibly mild to moderate. 6 history of GERD without esophagitis. Plan: The patient was seen and evaluated by Dr. Vyas. Her chest x-ray, labs and ABGs were reviewed. We'll continue with her current medications including Tamiflu. The patient did not tolerate interruption of sedation today. We'll continue perform daily interruption of sedation weaning trials as tolerated. Her daughter remains at the bedside and is aware of the current situation. She verbalizes the patient would not want any long-term life support, tracheostomy or PEG tube insertions. We will see how the next 24-48 hours ago. We will continue to follow and make further recommendations based on her clinical status. Critical care time 35 minutes.
[2016-10-30] MEDS: NOREPINEPHRINE 4 MG in SODIUM CHLORIDE 0.9% 250 ML IV SCH (14:49)
--- NOTE | 2016-10-30 15:24 | PN ---
Patient is allergic to ERYTHROMYCIN, PENICILLIN, ALBUTEROL, IPRATROPIUM. Patient admitted to the hospital with sepsis and acquired respiratory failure, requiring intubation and IV antibiotics for pneumonia and diverticulitis. Patient also has atrial fibrillation with fast ventricular rates for which patient has been on Cardizem. Patient is currently in sinus rhythm today. Patient is still on Levophed at the present time and sedation. Vital signs are stable with a pulse rate of 70 beats per minute and regular sinus rhythm and blood pressure of 192/71, respirations of 20, ventilator dependent on the ventilator. Neck is ( ) and no JVD. CARDIAC EXAMINATION: S1 and S2. Lungs are clinically clear to auscultation and scattered rhonchi. ABDOMEN: Soft, no organomegaly. Active bowel sounds. EXTREMITIES: No pedal edema. ASSESSMENT: 1. Sepsis. 2. Urinary tract infection and diverticulitis and pneumonia. 3. Atrial fibrillation with paroxysmal atrial fibrillation, converted to sinus rhythm, ( ) out of the sinus rhythm. 4. Hypertension. 5. Hyperlipidemia. 6. Patient's prognosis is guarded in spite of therapy.
[2016-10-30] MEDS ORDERED: PROPOFOL 50 ML IV ONE (18:20)
[2016-10-30] MEDS: LEVOFLOXACIN 500 MG TAB PO SCH (18:21)
[2016-10-31] MEDS: PROPOFOL 500 MG in EMPTY BAG 1 BAG IV SCH ×10 (00:07→19:57)
[2016-10-31] MEDS: DILTIAZEM 125 MG in SODIUM CHLORIDE 0.9% 100 ML IV SCH ×2 (00:07→16:29)
[2016-10-31 04:38] LABS: Anisocytosis Moderate; Aty Lym Flag Marked; CH 26.8; CHCM 31.2; HDW 3.29; HGB 9.2 gm/dL (11.4-16.0); Hypochromasia Moderate; Immature Gran Flag Marked; MCH 27.5 pg (25.0-35.0); MCHC 31.9 g/dL (31.0-37.0); MCV 86.3 fL (80.0-100.0); Mean Platelet Volume 9.1; Microcytosis Slight; RBC 3.36 m/uL (3.80-5.40); RDW 20.9 % (11.5-15.5); WBC (Perox) 6.27
[2016-10-31 04:53] LABS: Add Differential Manual Differential
[2016-10-31 04:59] LABS: Nucleated Red Blood Cells 0 /100 WBC (0-0); Total Cells Counted 100
[2016-10-31 05:00] LABS: Manual Review Performed
[2016-10-31 05:01] LABS: Ovalocytes Present
[2016-10-31 05:38] LABS: ABG Base Excess -3.2 mmol/L; ABG HCO3 21 mmol/L (21-25); ABG PCO2 37 mmHg (35-45); ABG PH 7.38 (7.35-7.45); ABG PO2 91 mmHg (83-108); ABG TCO2 22 mmol/L (19-24)
[2016-10-31 05:46] LABS: Anion Gap 7 mmol/L; Blood Urea Nitrogen 15 mg/dL (7-17); Calcium 7.4 mg/dL (8.4-10.2); Carbon Dioxide 21 mmol/L (22-30); Chloride 116 mmol/L (98-107); Glucose 115 mg/dL (74-99); Magnesium 1.8 mg/dL (1.6-2.3); Non-African American GFR(MDRD) >60 (>60 ml/min/1.73 sqM); Phosphorous 2.7 mg/dL (2.5-4.5); Potassium 3.9 mmol/L (3.5-5.1); Sodium 144 mmol/L (137-145)
[2016-10-31] MEDS ORDERED: Potassium Replacement Protocol 1 EACH MISC MISCELLANE PRN (06:16)
[2016-10-31] MEDS ORDERED: POTASSIUM CHLORIDE ORAL LIQUID 40 MEQ/30 ML CUP NG-TUBE SCH (07:00)
[2016-10-31] MEDS: SODIUM CHLORIDE 0.9% 1,000 ML IV SCH ×2 (07:16→19:59)
[2016-10-31] MEDS: MAGNESIUM SULFATE-D5W PMX 1 GM in DEXTROSE/WATER 1 100ML.BAG IVPB SCH ×2 (07:16→08:15)
--- NOTE | 2016-10-31 07:18 | XR ---
EXAMINATION TYPE: XR chest 1V portable DATE OF EXAM: 10/31/2016 6:11 AM COMPARISON: Prior chest x-ray 30 October 2016 HISTORY: Intubated TECHNIQUE: Single frontal view of the chest is obtained. FINDINGS: Endotracheal tube, NG tube are overlying appropriate positions. There are overlying cardia c leads. Pleural-parenchymal changes are stable. IMPRESSION: Stable exam. Bibasilar effusions and associated edema versus atelectasis, correlate to e xclude pneumonia. Findings may be indicative of heart failure.
[2016-10-31] MEDS: PANTOPRAZOLE 40 MG TABLET PO SCH (07:30)
[2016-10-31] MEDS: LEVALBUTEROL NEB 1.25 MG/3 ML AMP INHALATION SCH ×4 (07:36→19:21)
--- NOTE | 2016-10-31 08:05 | P.PN ---
Progress Note - Text The patient is a 81-year-old female who was admitted on October 26 with pneumonia and also found to have other multiple sources of possible infection. She has an E. coli gram-negative from the urine. There is also possibility of sigmoid diverticulitis on her abdominal CAT scan. Patient does have some underlying COPD and developed further respiratory failure, acute on chronic. Requiring mechanical ventilation. She also did require some vasopressors for her blood pressure. And she is also has had episodes of atrial fibrillation with rapid ventricular response. Patient remains on Levaquin. She has been seen by pulmonary medicine and cardiology. Their notes have been regarded. On physical exam she presently is somewhat sedated and remains on the ventilator. Last temperature was 98.7 with a pulse of 71 and respirations 20. Blood pressure 115/51 and she is 96% saturated on 50%. Lungs are clear anteriorly. Heart tones are regular. Rate control. No abdominal tenderness. No unusual edema. No definite focal neurological changes. Laboratory values: White count is 6000 with a hemoglobin at 9.2 and a platelet count improving to 133. Sodium was 144 with a potassium 3.9 and a CO2 content of 21. BUN of 15 with a creatinine of 0.5 given her GFR greater than 60. Blood sugar was 115 and calcium 7.4 with magnesium at 1.8. Blood gases revealed a pH of 7.38 with a pCO2 37 and a pO2 of 91. Chest x-ray Shows a stable exam with some associated edema versus atelectasis. Possibility of some CHF was noted. Impressions and plans: Discussed with staff and daughter at bedside this morning. Patient does have a history of anxiety and that in the past has been a component of her underlying shortness of breath/COPD. Patient has been on Xanax at home. She may need some to control her anxiety during the weaning process. Hopefully though with continued stabilization she will able to be successfully weaned from the ventilator. Prognosis though is still guarded.
[2016-10-31] MEDS: CHLORHEXIDINE GLUCONATE 15 ML CUP MUCOUS MEM SCH ×2 (08:30→22:02)
[2016-10-31] MEDS: ENOXAPARIN 40 MG/0.4 ML SYRINGE SQ SCH (08:30)
[2016-10-31] MEDS: ALPRAZolam 0.5 MG TAB PO PRN (08:31)
[2016-10-31] MEDS: OSELTAMIVIR 60 MG/10 ML ORAL SYRINGE PO SCH (08:31)
[2016-10-31] MEDS: PANTOPRAZOLE 40 MG/10 ML VIAL IV SCH (09:05)
--- NOTE | 2016-10-31 09:18 | P.PN ---
Subjective Progress note dated 10/31/2016 The patient did have daily eruption of sedation yesterday. She became very agitated. Her heart resumed up. He became hypotensive. She became dyssynchronous with the ventilator and after a short period of time without sedation, the patient was recently dated. When attempt that again today. I've had long talks with the daughter on both days. She had appreciates the fact that her mother would not want to be on life support indefinitely. She is not quite ready to make her DO NOT RESUSCITATE yet but soon if no improvement and we did talk about withdrawal life support and she is not there yet is as well. She remains on the ventilator. Her vent settings include the assist control mode rate of 20 pantomime 450% and 5 of PEEP. Her gases show pO2 of 91 and a pCO2 37 and a pH 7.38. These are basically normal gases. We drop the time of I 'm down to 350 more appropriate for her and it increased her rate from 20-24. She is a bit dyssynchronous with the ventilator. If she wakes up after stopping the propofol, we may try some PSV CPAP at 10 and 5 respectively. The levophed is off. She getting IV appointment 9 at 75 mL an hour. She's getting different propofol 30 turned on the 20 now off that's mics per kilogram per minute. Cardizem drip is off. She getting vital high protein at 25 with a goal of 25. Chest x-rays essentially unchanged. Objective - Vital Signs Vital signs: Vital Signs Temp 97.6 F 10/31/16 08:00 Pulse 78 10/31/16 08:00 Resp 18 10/31/16 08:00 BP 133/48 10/31/16 08:00 Pulse Ox 96 10/31/16 08:00 Intake & Output 10/30/16 10/31/16 10/31/16 18:59 06:59 18:59 Intake Total 8119.565 5825.869 147.446 Output Total 1045 790 150 Balance 688.775 690.869 -2.554 Weight 82.4 kg Intake: IV 900 900 0 Sodium Chloride 0.9% 1, 900 900 0 000 ml @ 75 mls/hr IV . [id number] [facility] Rx#:[id number] Intake, IV Titration 293.775 405.869 147.446 Amount Diltiazem 125 mg In 118.083 115.25 Sodium Chloride 0.9% 100 ml @ 5 MG/HR 5 mls/hr IV .Q24H [facility] Rx#:[id number] Magnesium Sulfate-D5w Pmx 100 1 gm In Dextrose/Water 1 100ml.bag @ 100 mls/hr IVPB Q1H [facility] Rx#: [id number] Norepinephrine 4 mg In 75.692 118.872 Sodium Chloride 0.9% 250 ml @ Titrate IV .Q0M [facility] Rx#:[id number] Propofol 500 mg In Empty 171.747 47.446 Bag 1 bag @ 40 MCG/KG/MIN 19.77 mls/hr IV .Q2H32M [facility] Rx#:[id number] Propofol 500 mg In Empty 100 Bag 1 bag @ Titrate IV . Q0M [facility] Rx#:[id number] Tube Feeding 450 175 Other 90 Output: Urine 1045 790 150 Other: Voiding Method Indwelling Catheter Indwelling Catheter - Exam No acute distress, currently sedated. On the mechanical ventilator. NG tube and endotracheal tube in place. HEENT examination is unremarkable. Neck supple. Full range of motion. Cardiovascular examination reveals regular rhythm rate. Heart rate in the 70s. No murmur. S1 and S2 normal. Lungs reveal a few scattered coarse rhonchi. Breath sounds diminished. Abdomen soft. Extremities are intact. - Labs CBC & Chem 7: 10/31/16 04:23 10/31/16 04:23 Labs: Abnormal Lab Results - Last 24 Hours (Table) 10/31/16 10/31/16 Range/Units 04:23 04:23 RBC 3.36 L (3.80-5.40) m/uL Hgb 9.2 L (11.4-16.0) gm/dL Hct 29.0 L (34.0-46.0) % RDW 20.9 H (11.5-15.5) % Plt Count 133 L (150-450) k/uL Chloride 116 H (98-107) mmol/L Carbon Dioxide 21 L (22-30) mmol/L Creatinine 0.50 L (0.52-1.04) mg/dL Glucose 115 H (74-99) mg/dL Calcium 7.4 L (8.4-10.2) mg/dL Microbiology - Last 24 Hours (Table) 10/29/16 00:55 Gram Stain - Preliminary Sputum Sputum Culture - Preliminary Kelly albicans Assessment and Plan (1) Respiratory failure Status: Acute (2) Influenza A Status: Acute (3) GERD (gastroesophageal reflux disease) Status: Acute (4) COPD (chronic obstructive pulmonary disease) Status: Acute (5) Atrial fibrillation Status: Acute (6) Failure to wean Status: Acute (7) Failure to wean from mechanical ventilation Status: Acute (8) Left lower lobe pneumonia Status: Acute (9) Sepsis Status: Acute Plan: Plan dated 10/31/2016 The patient's depression plan will be discontinued. We'll do a full daily eruption of sedation. We change a been a bit. The rate was increased from 20- 20 for the time of I'm down from 400-350. She's a bit dyssynchronous with the ventilator. We will call the respiratory therapist. We'll try some PSV of 10 CPAP of 5 to maybe see if she sinks with the ventilator better and on those settings. We'll continue tube feeds. Medications x-rays and labs are reviewed. Prognosis is guarded. I fed ongoing discussions with the daughter. She appreciates the seriousness of the situation. We'll continue to follow. Time with Patient: Greater than 30
[2016-10-31] MEDS: AMIODARONE 200 MG TAB PO SCH ×2 (13:21→22:02)
[2016-10-31] MEDS ORDERED: HEPARIN SODIUM,PORCINE 5,000 UNIT/ML 1 ML VIAL IV PRN (13:26)
[2016-10-31] MEDS ORDERED: HEPARIN SODIUM,PORCINE 5,000 UNIT/ML 1 ML VIAL IV ONE (13:26)
[2016-10-31] MEDS: LEVOFLOXACIN 500 MG TAB PO SCH (14:38)
[2016-10-31 14:50] LABS: Partial Thromboplastin Time 32.1 sec (22.0-30.0); Prothrombin Time 9.9 sec (9.0-12.0)
--- NOTE | 2016-10-31 14:56 | PN ---
This is a 41-year-old lady who was admitted to hospital with pneumonia, respiratory failure, currently intubated on vent. Patient has had paroxysmal episodes of atrial fibrillation and this morning went back into [facility] with poorly-controlled ventricular rate. She is intubated on vent and every time she goes into A. fib her blood pressures are low. She has not been anticoagulated on this admission and I am not able to chat with the patient because of the patient being intubated and on vent. On exam, heart rate is around 140 beats per minute, blood pressure is 80/60, respiratory rate is 18. Chest exam reveals diminished air entry at the bases. Heart exam reveals first and second heart sounds, irregular rhythm. Abdomen is soft. Exam of the extremities did not reveal any edema. Peripheral pulses are palpable. Labs show a hemoglobin of 9.2, platelet count is 133. Potassium is 3.9. Creatinine is 0.5. ASSESSMENT: Atrial fibrillation with poorly-controlled ventricular rate. PLAN: I am going to start the patient on IV heparin, start her on oral amiodarone and start her on Levophed because of the low blood pressure.
[2016-10-31] MEDS: HEPARIN SODIUM,PORCINE/D5W PMX 25,000 UNIT in DEXTROSE/WATER 1 500ML.BAG IV SCH (14:57)
[2016-11-01] MEDS: PROPOFOL 500 MG in EMPTY BAG 1 BAG IV SCH ×10 (00:05→19:53)
[2016-11-01 04:34] LABS: Anisocytosis Moderate; Aty Lym Flag Moderate; CH 26.7; CHCM 30.6; HCT 30.3 % (34.0-46.0); HDW 3.19; HGB 9.4 gm/dL (11.4-16.0); Hypochromasia Marked; Immature Gran Flag Marked; MCV 87.2 fL (80.0-100.0); Mean Platelet Volume 8.3; Microcytosis Slight; RBC 3.47 m/uL (3.80-5.40); RDW 20.3 % (11.5-15.5); WBC 7.4 k/uL (3.8-10.6); WBC (Perox) 7.96
[2016-11-01 04:45] LABS: INR 1.1 (<1.1); Partial Thromboplastin Time 61.9 sec (22.0-30.0); Prothrombin Time 10.9 sec (9.0-12.0)
[2016-11-01 04:55] LABS: Add Differential Manual Differential
[2016-11-01 04:59] LABS: Manual Review Performed; Nucleated Red Blood Cells 0 /100 WBC (0-0); Total Cells Counted 200
[2016-11-01 05:13] LABS: Anion Gap 6 mmol/L; Blood Urea Nitrogen 15 mg/dL (7-17); Calcium 7.4 mg/dL (8.4-10.2); Carbon Dioxide 24 mmol/L (22-30); Chloride 114 mmol/L (98-107); Glucose 104 mg/dL (74-99); Magnesium 1.7 mg/dL (1.6-2.3); Non-African American GFR(MDRD) >60 (>60 ml/min/1.73 sqM); Phosphorous 3.1 mg/dL (2.5-4.5); Potassium 3.8 mmol/L (3.5-5.1); Sodium 144 mmol/L (137-145)
[2016-11-01 05:35] LABS: ABG Base Excess -0.5 mmol/L; ABG HCO3 23 mmol/L (21-25); ABG PCO2 36 mmHg (35-45); ABG PH 7.43 (7.35-7.45); ABG PO2 80 mmHg (83-108); ABG TCO2 24 mmol/L (19-24)
[2016-11-01] MEDS ORDERED: POTASSIUM CHLORIDE ORAL LIQUID 40 MEQ/30 ML CUP NG-TUBE SCH ×2 (06:00→13:00)
[2016-11-01] MEDS: DILTIAZEM 125 MG in SODIUM CHLORIDE 0.9% 100 ML IV SCH (06:11)
[2016-11-01] MEDS: MAGNESIUM SULFATE-D5W PMX 1 GM in DEXTROSE/WATER 1 100ML.BAG IVPB SCH ×2 (06:14→07:23)
--- NOTE | 2016-11-01 07:14 | XR ---
EXAMINATION TYPE: XR chest 1V portable DATE OF EXAM: 11/01/2016 6:47 AM COMPARISON: NONE HISTORY: Tube placement TECHNIQUE: Single frontal view of the chest is obtained. FINDINGS: Diffuse interstitial pattern bilateral fusion consolidation seen. ET and NG tubes stable. IMPRESSION: 1. Stable x-ray demonstrating bilateral infiltrate and pleural effusion correlate for CHF.
[2016-11-01] MEDS: LEVALBUTEROL NEB 1.25 MG/3 ML AMP INHALATION SCH ×4 (07:21→19:44)
--- NOTE | 2016-11-01 08:08 | P.PN ---
Progress Note - Text The patient is a 81-year-old female who remains in respiratory failure on a ventilator in the intensive care unit. Patient initially presented about one week previous with an underlying pneumonia along with other areas of possible infection including a possible diverticulitis and E. coli urinary tract infection. The patient went into respiratory failure and still remains on the ventilator. She has also had her course complicated by intermittent atrial fibrillation with a rapid ventricular response. The patient is being followed by pulmonary medicine and cardiology. Vital signs revealed temperature to be 99 with the present pulse of 77 and respirations 24. Blood pressure 126/51 and she is 92% saturated on 55%. Lungs do reveal some coarse rhonchi bilaterally. Heart tones regular at this time. Abdomen nontender. Some mild diffuse edema of the extremities. No definite focal neurological changes noted. Laboratory: White count is 7.4 with a hemoglobin 9.4 and a platelet count of 170. INR is 1.1 with a PTT of 61.9 on heparin for her atrial fib. PH is 7.43 with pCO2 36 and a pO2 of 80. Sodium 144 with potassium 3.4. BUN 24 with creatinine of 0.5 and BUN of 15. Blood sugar was 104. Chest x-ray: Stable but demonstrating bilateral lower infiltrates and pleural effusions suggesting possibility of CHF. Impressions and plans: Discussed with the staff and patient's daughter at bedside. Patient has been made a no code as no further CPR is desired. Hopefully can continue to try to wean patient off the ventilator. Patient is on heparin for her atrial fibrillation and amiodarone. She continues on Levaquin. Situation is very serious and prognosis is very guarded as discussed with daughter this morning.
[2016-11-01] MEDS: AMIODARONE 200 MG TAB PO SCH ×2 (08:16→19:54)
[2016-11-01] MEDS: PANTOPRAZOLE 40 MG/10 ML VIAL IV SCH (08:16)
[2016-11-01] MEDS: CHLORHEXIDINE GLUCONATE 15 ML CUP MUCOUS MEM SCH ×2 (08:16→19:54)
[2016-11-01] MEDS: SODIUM CHLORIDE 0.9% 1,000 ML IV SCH ×2 (09:15→09:34)
[2016-11-01 09:24] VITALS: BMI 35.2
[2016-11-01] MEDS ORDERED: FUROSEMIDE 10 MG/ML 4 ML VIAL IV STA (09:27)
--- NOTE | 2016-11-01 11:01 | CT ---
EXAMINATION TYPE: CT brain wo con DATE OF EXAM: 11/01/2016 10:52 AM COMPARISON: NONE HISTORY: Altered mental changes CT DLP: 963 mGycm Automated exposure control for dose reduction was used. FINDINGS: Central structures are midline. There is no evidence of hydrocephalus. No acute focal lesio n, mass effect or midline shift is seen. I do not see evidence of intracranial blood. 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 Ther e is air-fluid levels in the sphenoid and maxillary sinuses. Mastoid air cells appear clear. No depressed skull fracture is seen. IMPRESSION: 1. NO ACUTE INTRACRANIAL ABNORMALITY. 2. ACUTE ON CHRONIC PANSINUSITIS.
--- NOTE | 2016-11-01 11:24 | P.PN ---
Subjective Acute sepsis with acute pneumonia/community-acquired, acute urinary tract infection, and acute diverticulitis. And acute influenza infection. This is a 81-year-old female with history of COPD, GERD, presented to the ER with 1 week history of diarrhea. Her diarrhea was not associated with any abdominal pain, no melena, and no hematemesis. In the last few days the patient has been vomiting, and has been complaining of cough. Cough is productive with yellow phlegm, she has also been complaining of chills but no documented fever. Patient was also complaining of aches and pains, and mostly chest pain upon coughing. Patient could not keep any food down, in addition to all of this the patient has been complaining of slight shortness of breath upon evaluation in the ER, the patient was found to have left lower lobe pneumonia, evidence of diverticulitis or colitis, and evidence of urinary tract infection. Patient had no symptoms to suggest urinary tract infection, no dysuria frequency or urgency, she had no symptoms of GI bleeding, but she did have symptoms of pneumonia. Screening in the ER including a C. diff was negative, however influenza screen was positive by PCR. Patient was admitted, placed on antibiotics in the form of Levaquin, clindamycin, also placed on Tamiflu. In the ER her lactic acid was elevated, and she received fluid boluses, did not require any pressors for blood pressure. Initial lactic acid was around 8, follow-up lactic acid was around 4. At the time of my evaluation in the ICU, patient had no headache, no blurred vision, no dizziness, she did complain of cough, no wheezing, no documented fever, no chills, she did have episodes of nausea vomiting and diarrhea. Patient was reevaluated today on 10/27/2016, doing relatively well except for the fact that the patient required small dose of norepinephrine last night for a short Time and she remains on 2 g at this point which will be discontinued in the next hour. Patient did receive significant amount of fluids initially upon admission, and more fluid boluses were given last night. Her lactic acid seems to be significantly improved, it is down to 1.9 today. However her CBC is showing leukocytosis with WBC count of 27.4. Electrolytes are normal, anion gap is 13. Patient seems to have mostly a picture of hyperchloremic metabolic acidosis. All cultures are still pending. Chest x-ray continues to show significant infiltrate involving the left lower lobe, and there is some infiltrate in the right lower lobe/minimal. The patient is seen again today 10/28/2016 in follow-up in the intensive care unit. She is awake and alert in no acute distress. She did develop new onset atrial fibrillation with rapid ventricular response requiring Cardizem drip at 15 mg per hour. Her chest x-ray reveals evidence of congestive heart failure. She continues to require 10 L of high flow nasal cannula to maintain O2 saturations in the 90s. She is currently afebrile. Her white count has improved to 13.6. She is currently back in normal sinus rhythm. Potassium is being replaced. She is seen again today 10/29/2016 in follow-up in the intensive care unit. Unfortunately she did have ongoing dyspnea and difficulty tolerating any form of mask over her face fractionation. She was subsequently intubated and placed on the mechanical ventilator. She is currently on assist control of 20 tidal volume 400 FiO2 50% and a PEEP of 5. Arterial blood gases reveal pO2 of 81, pCO2 34, pH 7.31. She is currently sedated on to prevent at 30 mcg/kg/m, levophed at 4 mcg/m and a 0.9 normal saline at 75 mL per hour. Cardizem drip currently on hold. Her urine output has improved this morning currently 35-40 mL 's per hour. Today's chest x-ray reveals bilateral infiltrate and small effusion with some mild venous congestion. She is currently afebrile. No leukocytosis. Her urine tests reveal evidence of S3 she coli. She does remain on antibiotics in the form of Levaquin and clindamycin. The patient is seen again today 10/30/2016 in follow-up. She remains intubated on the mechanical ventilator and assist control of 20 tidal volume 400 FiO2 50% and a PEEP of 5. Morning blood gases revealed a pO2 of 99, pCO2 33.5, pH 7.36. She was given a and direction of sedation for approximate one-hour however the patient developed significant tachycardia with A. fib and RVR at 170 her O2 sat saturations were dropping into the 80s and she was tachypneic and restless. She has been since resedate he currently on to prevent at 40 mcg/kg/m. She has a 0.9 at 75 MLS per hour. Her levo fed as I 4 mcg/m. Today's chest x-ray continues to show bilateral infiltrates and small pleural effusions. She is receiving nutrition via tube feedings of Vital HP at 25 mL per hour. She remains on Levaquin and Tamiflu. Progress note dated 10/31/2016 The patient did have daily eruption of sedation yesterday. She became very agitated. Her heart resumed up. He became hypotensive. She became dyssynchronous with the ventilator and after a short period of time without sedation, the patient was recently dated. When attempt that again today. I've had long talks with the daughter on both days. She had appreciates the fact that her mother would not want to be on life support indefinitely. She is not quite ready to make her DO NOT RESUSCITATE yet but soon if no improvement and we did talk about withdrawal life support and she is not there yet is as well. She remains on the ventilator. Her vent settings include the assist control mode rate of 20 pantomime 450% and 5 of PEEP. Her gases show pO2 of 91 and a pCO2 37 and a pH 7.38. These are basically normal gases. We drop the time of I 'm down to 350 more appropriate for her and it increased her rate from 20-24. She is a bit dyssynchronous with the ventilator. If she wakes up after stopping the propofol, we may try some PSV CPAP at 10 and 5 respectively. The levophed is off. She getting IV appointment 9 at 75 mL an hour. She's getting different propofol 30 turned on the 20 now off that's mics per kilogram per minute. Cardizem drip is off. She getting vital high protein at 25 with a goal of 25. Chest x-rays essentially unchanged. The patient is seen again today 11/01/2016 in follow-up. Current vent settings include assist control of 24, tidal volume 350, FiO2 55% and a PEEP of 5. Today' s blood gases reveal a P O2 of 80%, pCO2 36, pH 7.43 on 55% FiO2. Unfortunately , she has again failed to tolerate daily interruption of sedation. She is not making good eye contact. Not following commands. She had desaturations with tachycardia and tachypnea. Her sedation was resumed. She is going for computed tomography scan of the brain today. Her sedation was reapplied at 30 mcg/kg/m. She is on 0.9 normal saline at 75 mL per hour. Continue Cardizem drip at 10 mg per hour. She is on heparin weight based protocol. Her chest x- ray showed some evidence of fluid volume overload along with right basilar infiltrates. Objective - Vital Signs Vital signs: Vital Signs Temp 98.2 F 11/01/16 08:00 Pulse 82 11/01/16 11:00 Resp 24 11/01/16 11:00 BP 110/69 11/01/16 11:00 Pulse Ox 90 L 11/01/16 11:00 Intake & Output 10/31/16 11/01/16 11/01/16 18:59 06:59 18:59 Intake Total 9000.573 9182.733 683.248 Output Total 5843 001 4634 Balance 579.922 6748.733 -839.752 Weight 83.7 kg 81.9 kg 81.9 kg Intake: IV 750 925 325 Magnesium Sulfate-D5w Pmx 100 100 1 gm In Dextrose/Water 1 100ml.bag @ 100 mls/hr IVPB Q1H AD Rx#: [id number] Sodium Chloride 0.9% 1, 750 825 225 000 ml @ 75 mls/hr IV . [id number] AD Rx#:[id number] Intake, IV Titration 376.727 328.733 143.248 Amount Diltiazem 125 mg In 12.417 112.167 Sodium Chloride 0.9% 100 ml @ 5 MG/HR 5 mls/hr IV .Q24H AD Rx#:[id number] Magnesium Sulfate-D5w Pmx 200 1 gm In Dextrose/Water 1 100ml.bag @ 100 mls/hr IVPB Q1H AD Rx#: [id number] Norepinephrine 4 mg In 23.493 19.568 Sodium Chloride 0.9% 250 ml @ Titrate IV .Q0M AD Rx#:[id number] Propofol 500 mg In Empty 140.817 196.998 43.248 Bag 1 bag @ 40 MCG/KG/MIN 19.77 mls/hr IV .Q2H32M AD Rx#:[id number] Sodium Chloride 0.9% 1, 100 000 ml @ 50 mls/hr IV . Q20H AD Rx#:[id number] Tube Feeding 525 500 125 Other 90 120 90 Output: Urine 3132 516 4235 Other: Voiding Method Indwelling Catheter Indwelling Catheter Indwelling Catheter - Exam GENERAL EXAM: Intubated, sedated.. HEAD: Normocephalic. EYES: Sluggish reaction of pupils, equal size. NOSE: Clear with pink turbinates. THROAT: Oral endotracheal and gastric tube secured in place. No erythema or exudates. NECK: No masses, no JVD. CHEST: No chest wall deformity. LUNGS: Equal air entry with eczema by clitoral posterior bases. CVS: S1 and S2 normal with no audible murmurs, regular rhythm. ABDOMEN: No hepatosplenomegaly, normal bowel sounds, no guarding or rigidity. Extremities: There is no significant peripheral edema. No clubbing, no cyanosis. Peripheral pulses are intact. - Labs CBC & Chem 7: 11/01/16 04:08 11/01/16 04:08 Labs: Abnormal Lab Results - Last 24 Hours (Table) 10/31/16 10/31/16 11/01/16 Range/Units 14:22 21:03 04:08 RBC (3.80-5.40) m/uL Hgb (11.4-16.0) gm/dL Hct (34.0-46.0) % RDW (11.5-15.5) % APTT 32.1 H 56.9 H (22.0-30.0) sec ABG pO2 (83-108) mmHg Chloride 114 H (98-107) mmol/L Creatinine 0.50 L (0.52-1.04) mg/dL Glucose 104 H (74-99) mg/dL Calcium 7.4 L (8.4-10.2) mg/dL 11/01/16 11/01/16 11/01/16 Range/Units 04:08 04:08 05:25 RBC 3.47 L (3.80-5.40) m/uL Hgb 9.4 L (11.4-16.0) gm/dL Hct 30.3 L (34.0-46.0) % RDW 20.3 H (11.5-15.5) % APTT 61.9 H (22.0-30.0) sec ABG pO2 80 L (83-108) mmHg Chloride (98-107) mmol/L Creatinine (0.52-1.04) mg/dL Glucose (74-99) mg/dL Calcium (8.4-10.2) mg/dL Microbiology - Last 24 Hours (Table) 10/29/16 00:55 Gram Stain - Final Sputum Sputum Culture - Final Kelly albicans Assessment and Plan Plan: Impression: 1 Acute sepsis in a patient with acute influenza infection, complicated by pneumonia mostly involving the left lower lobe, and right lower lobe and colitis /diverticulitis. The exact source of her sepsis could also be related to her urinary tract infection as noted in her abnormal urinalysis. 2 Acute influenza infection, patient is presently on Tamiflu 3 acute bilateral pneumonia mostly involving the left lower lobe but is also involving the right lower lobe to some extent. This is felt to be pneumonia as a complication of acute influenza infection. Progressively worsen requiring intubation and mechanical ventilatory support. 4 acute urinary tract infection 5 history of underlying COPD severity of which is not clear but possibly mild to moderate. 6 history of GERD without esophagitis. Plan: The patient was seen and evaluated by Dr. Vyas. Her chest x-ray, labs and ABGs were reviewed. We'll give 40 mg of IV Lasix 1. Decrease the IV solution to 50 mL per hour. The patient did not tolerate interruption of sedation today. We will perform a computed tomography scan of the brain without contrast to rule out any other underlying abnormalities that may be contributing to her altered mental status. We'll continue perform daily interruption of sedation weaning trials as tolerated. Her daughter remains at the bedside and is aware of the current situation. She verbalizes the patient would not want any long-term life support, tracheostomy or PEG tube insertions. The patient is a DO NOT RESUSCITATE CODE STATUS. We will see how the next 24- 48 hours ago. We will continue to follow and make further recommendations based on her clinical status. Critical care time 38 minutes.
[2016-11-01] MEDS: HEPARIN SODIUM,PORCINE/D5W PMX 25,000 UNIT in DEXTROSE/WATER 1 500ML.BAG IV SCH (13:05)
[2016-11-01] MEDS: LEVOFLOXACIN 500 MG TAB PO SCH (13:05)
--- NOTE | 2016-11-01 14:11 | CDI ---
In responding to this query, please exercise your independent professional judgment. The [facility] Coding Staff and Clinical Documentation Specialists appreciate your assistance in clarifying documentation, maintaining compliance with coding guidelines, accurately documenting patients condition and capturing severity of illness. The fact that a question is asked does not imply that any particular answer is desired or expected. Communication forms are a method of clarifying documentation and are not made part of the Legal Health Record. Thank you in advance for your clarification. Last Revision, October 2015 Crystal Barcenas [address] [facility] [place] [address] Documentation Clarification Form Date: 11/01/2016 1:57:00 PM From: Mely Mosquera, CCS, CCDS Admit Date: 10/26/2016 3:41:00 PM Patient Name: Aurelia Hughes Visit Number: [id number] Discharge Date: Dr. Chaim Jarvis: CHF is documented in the 10/31 CXR and also the attending progress notes with no specificity. History: Hypertension, DM, Chronic Kidney Disease, Chronic colitis. Former smoker. Clinical Indicators: Admitted with Sepsis, LLL pneumonia, Acute Diverticulitis, Acute UTI, Dehydration, Acute renal failure. VS: T 97.8-101.1^, P 85-117^, R 16-26^, BP 108/63-98-46, PO 92 2Lnc Lactic Acid: 8.5^^ Echocardiogram Results 10/29: EF 40-45% systolic mild-moderately impaired. 10/26 CXR: LLL pneumonia. 11/01 CXR: Correlate for CHF. Treatment: IV Zofran, IV fluid bolus x3, IV Levaquin, IV Flagyl, IV Tylenol, IV Lasix, Intubated remains on vent. Consults: Pulmonary, Cardiology In your professional opinion, can you please clarify the acuity and type of CHF if known? 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 Include clinical findings that support your diagnosis. FYI: Press F11 to launch patient chart. Place X here if this finding has no clinical significance, is not applicable or if you are not able to provide any additional documentation. Thank You. MTDD
[2016-11-01] MEDS ORDERED: PROPOFOL 50 ML IV ONE (16:52)
--- NOTE | 2016-11-01 16:53 | PN ---
81-year-old lady with respiratory failure intubated on vent that we are involved in her care because of atrial fibrillation. I treated her with amiodarone and intravenous Cardizem this morning, she is in sinus rhythm. Heart rate is well controlled and blood pressure is doing well. I started her on IV heparin. On exam, she is intubated, sedated on vent, not responsive. On exam, comfortable at rest. Heart rate 72 beats per minute, blood pressure is 120/48, respirations 18. Chest exam reveals diminished air entry at the bases. Heart exam reveals first and second heart sounds. No gallop. Abdomen is soft. Exam of the extremities reveals trace edema. Peripheral pulses are felt. Labs show that hemoglobin is 9.4. Potassium is 3.8. Creatinine is 0.5. ASSESSMENT: Paroxysmal atrial fibrillation, currently in sinus rhythm. I will continue the oral amiodarone and intravenous Cardizem but decrease the dose to 5 mg. I will continue the IV heparin at this time.
[2016-11-02] MEDS: PROPOFOL 500 MG in EMPTY BAG 1 BAG IV SCH ×9 (00:14→23:36)
[2016-11-02] MEDS: SODIUM CHLORIDE 0.9% 1,000 ML IV SCH (04:00)
[2016-11-02 04:46] LABS: Anisocytosis Moderate; Aty Lym Flag Moderate; CH 26.5; CHCM 30.8; HCT 27.9 % (34.0-46.0); HDW 3.09; HGB 8.7 gm/dL (11.4-16.0); Hypochromasia Moderate; Immature Gran Flag Marked; MCH 26.8 pg (25.0-35.0); MCHC 31.1 g/dL (31.0-37.0); MCV 86.2 fL (80.0-100.0); Mean Platelet Volume 8.4; Microcytosis Slight; RBC 3.24 m/uL (3.80-5.40); RDW 20.5 % (11.5-15.5); WBC 7.8 k/uL (3.8-10.6); WBC (Perox) 8.51
[2016-11-02 05:13] LABS: Anion Gap 5 mmol/L; Blood Urea Nitrogen 16 mg/dL (7-17); Calcium 7.5 mg/dL (8.4-10.2); Carbon Dioxide 28 mmol/L (22-30); Chloride 111 mmol/L (98-107); Glucose 95 mg/dL (74-99); Magnesium 1.7 mg/dL (1.6-2.3); Non-African American GFR(MDRD) >60 (>60 ml/min/1.73 sqM); Phosphorous 3.3 mg/dL (2.5-4.5); Potassium 3.4 mmol/L (3.5-5.1); Sodium 144 mmol/L (137-145)
[2016-11-02 05:27] LABS: Add Differential Manual Differential
[2016-11-02 05:36] LABS: Manual Review Performed; Nucleated Red Blood Cells 0 /100 WBC (0-0); Ovalocytes Present; Total Cells Counted 100
[2016-11-02] MEDS ORDERED: Potassium Replacement Protocol 1 EACH MISC MISCELLANE PRN (05:37)
[2016-11-02] MEDS ORDERED: Magnesium Replacement Protocol 1 EACH MISC MISCELLANE PRN (05:38)
[2016-11-02] MEDS: MAGNESIUM SULFATE-D5W PMX 1 GM in DEXTROSE/WATER 1 100ML.BAG IVPB SCH ×3 (06:04→23:32)
[2016-11-02] MEDS: POTASSIUM CHLORIDE ORAL LIQUID 40 MEQ/30 ML CUP NG-TUBE SCH ×2 (06:04→06:43)
--- NOTE | 2016-11-02 07:16 | XR ---
EXAMINATION TYPE: XR chest 1V portable DATE OF EXAM: 11/02/2016 6:18 AM HISTORY: Tube placement. REFERENCE: Previous study dated 11/01/2016. FINDINGS: The patient is ET tube and NG tube remain in place, unchanged in appearance. There are bilateral effusions. There is bibasilar airspace disease. Heart size is upper limits of nor mal. Vascular congestion has improved. There continues to be some interstitial change. IMPRESSION: IMPROVING CHANGES OF HEART FAILURE.
[2016-11-02] MEDS: LEVALBUTEROL NEB 1.25 MG/3 ML AMP INHALATION SCH ×4 (07:23→19:28)
[2016-11-02 07:42] LABS: ABG HCO3 25 mmol/L (21-25); ABG PCO2 39 mmHg (35-45); ABG PH 7.43 (7.35-7.45); ABG PO2 86 mmHg (83-108); ABG TCO2 26 mmol/L (19-24)
[2016-11-02 07:43] LABS: ABG Base Excess 1.3 mmol/L
[2016-11-02] MEDS: AMIODARONE 200 MG TAB PO SCH ×2 (09:04→19:58)
[2016-11-02] MEDS: PANTOPRAZOLE 40 MG/10 ML VIAL IV SCH (09:04)
[2016-11-02] MEDS: CHLORHEXIDINE GLUCONATE 15 ML CUP MUCOUS MEM SCH ×2 (09:04→19:59)
--- NOTE | 2016-11-02 09:04 | P.PN ---
Progress Note - Text The patient is a 81-year-old female who remains in acute respiratory failure assisted with the ventilator in the intensive care unit. She presented with sepsis and systemic inflammatory response syndrome associated with bilateral lower lobe pneumonias along with an E. coli urinary tract infection and underlying diverticulitis of the sigmoid. She has had intermittent atrial fibrillation with a rapid ventricular response and has been followed by pulmonary medicine and cardiology. This morning patient is still intubated with the patient's daughter at the bedside. The patient herself seems to be having more oral movements and eye movements. Although still not able to obey simple commands. Other vital signs reveal temperature of 98 with a pulse of 70 and respirations 19. Blood pressure is 122/49 and she is 97% saturated on 55% FiO2. Once again extraocular movements appear to be intact. Pupils appear equal and reactive. Neck is supple. Lungs are generally clear. Heart regular. Abdomen is nontender. Some mild distal edema. Once again she is not obeying commands. Having more facial movements and at times appears to be tearing. laboratory values: White count 7.8 with a hemoglobin 8.7 and a platelet count of 206. PTT on heparin is 57. Blood gases revealed a pH is 7.43 with a pCO2 39 and a pO2 of 86. FiO2 of 55. Sodium is 144 with potassium 3.4. Her CO2 content is up to 28. BUN is 16 with creatinine of 0.5 given her GFR greater than 60. Calcium improved to 7.5. Phosphorus and magnesium are normal. Her x-ray actually showed some improvement in the changes of congestive heart failure from previous after receiving Lasix yesterday. Impressions and plans: This patient with acute respiratory failure on ventilator secondary to sepsis. Patient did appear to have element of acute on chronic systolic congestive heart failure which is improving on chest x-ray. Patient did have a CAT scan and of the brain due to her neurological status which did not show any acute changes yesterday. Discussed with daughter at bedside. Hopefully she can continue to be weaned from the ventilator. Prognosis still very guarded.
[2016-11-02] MEDS: DILTIAZEM 125 MG in SODIUM CHLORIDE 0.9% 100 ML IV SCH (09:05)
[2016-11-02 09:32] LABS: ABG Base Excess 1.3 mmol/L; ABG HCO3 26 mmol/L (21-25); ABG PCO2 51 mmHg (35-45); ABG PH 7.34 (7.35-7.45); ABG PO2 71 mmHg (83-108); ABG TCO2 28 mmol/L (19-24)
[2016-11-02] MEDS ORDERED: MORPHINE SULFATE 2 MG/ML SYRINGE IVP ONE (09:44)
[2016-11-02] MEDS ORDERED: PROPOFOL 150 ML IV ONE ×2 (10:39→18:14)
--- NOTE | 2016-11-02 10:57 | P.PN ---
Subjective Acute sepsis with acute pneumonia/community-acquired, acute urinary tract infection, and acute diverticulitis. And acute influenza infection. This is a 81-year-old female with history of COPD, GERD, presented to the ER with 1 week history of diarrhea. Her diarrhea was not associated with any abdominal pain, no melena, and no hematemesis. In the last few days the patient has been vomiting, and has been complaining of cough. Cough is productive with yellow phlegm, she has also been complaining of chills but no documented fever. Patient was also complaining of aches and pains, and mostly chest pain upon coughing. Patient could not keep any food down, in addition to all of this the patient has been complaining of slight shortness of breath upon evaluation in the ER, the patient was found to have left lower lobe pneumonia, evidence of diverticulitis or colitis, and evidence of urinary tract infection. Patient had no symptoms to suggest urinary tract infection, no dysuria frequency or urgency, she had no symptoms of GI bleeding, but she did have symptoms of pneumonia. Screening in the ER including a C. diff was negative, however influenza screen was positive by PCR. Patient was admitted, placed on antibiotics in the form of Levaquin, clindamycin, also placed on Tamiflu. In the ER her lactic acid was elevated, and she received fluid boluses, did not require any pressors for blood pressure. Initial lactic acid was around 8, follow-up lactic acid was around 4. At the time of my evaluation in the ICU, patient had no headache, no blurred vision, no dizziness, she did complain of cough, no wheezing, no documented fever, no chills, she did have episodes of nausea vomiting and diarrhea. Patient was reevaluated today on 10/27/2016, doing relatively well except for the fact that the patient required small dose of norepinephrine last night for a short Time and she remains on 2 g at this point which will be discontinued in the next hour. Patient did receive significant amount of fluids initially upon admission, and more fluid boluses were given last night. Her lactic acid seems to be significantly improved, it is down to 1.9 today. However her CBC is showing leukocytosis with WBC count of 27.4. Electrolytes are normal, anion gap is 13. Patient seems to have mostly a picture of hyperchloremic metabolic acidosis. All cultures are still pending. Chest x-ray continues to show significant infiltrate involving the left lower lobe, and there is some infiltrate in the right lower lobe/minimal. The patient is seen again today 10/28/2016 in follow-up in the intensive care unit. She is awake and alert in no acute distress. She did develop new onset atrial fibrillation with rapid ventricular response requiring Cardizem drip at 15 mg per hour. Her chest x-ray reveals evidence of congestive heart failure. She continues to require 10 L of high flow nasal cannula to maintain O2 saturations in the 90s. She is currently afebrile. Her white count has improved to 13.6. She is currently back in normal sinus rhythm. Potassium is being replaced. She is seen again today 10/29/2016 in follow-up in the intensive care unit. Unfortunately she did have ongoing dyspnea and difficulty tolerating any form of mask over her face fractionation. She was subsequently intubated and placed on the mechanical ventilator. She is currently on assist control of 20 tidal volume 400 FiO2 50% and a PEEP of 5. Arterial blood gases reveal pO2 of 81, pCO2 34, pH 7.31. She is currently sedated on to prevent at 30 mcg/kg/m, levophed at 4 mcg/m and a 0.9 normal saline at 75 mL per hour. Cardizem drip currently on hold. Her urine output has improved this morning currently 35-40 mL 's per hour. Today's chest x-ray reveals bilateral infiltrate and small effusion with some mild venous congestion. She is currently afebrile. No leukocytosis. Her urine tests reveal evidence of S3 she coli. She does remain on antibiotics in the form of Levaquin and clindamycin. The patient is seen again today 10/30/2016 in follow-up. She remains intubated on the mechanical ventilator and assist control of 20 tidal volume 400 FiO2 50% and a PEEP of 5. Morning blood gases revealed a pO2 of 99, pCO2 33.5, pH 7.36. She was given a and direction of sedation for approximate one-hour however the patient developed significant tachycardia with A. fib and RVR at 170 her O2 sat saturations were dropping into the 80s and she was tachypneic and restless. She has been since resedate he currently on to prevent at 40 mcg/kg/m. She has a 0.9 at 75 MLS per hour. Her levo fed as I 4 mcg/m. Today's chest x-ray continues to show bilateral infiltrates and small pleural effusions. She is receiving nutrition via tube feedings of Vital HP at 25 mL per hour. She remains on Levaquin and Tamiflu. Progress note dated 10/31/2016 The patient did have daily eruption of sedation yesterday. She became very agitated. Her heart resumed up. He became hypotensive. She became dyssynchronous with the ventilator and after a short period of time without sedation, the patient was recently dated. When attempt that again today. I've had long talks with the daughter on both days. She had appreciates the fact that her mother would not want to be on life support indefinitely. She is not quite ready to make her DO NOT RESUSCITATE yet but soon if no improvement and we did talk about withdrawal life support and she is not there yet is as well. She remains on the ventilator. Her vent settings include the assist control mode rate of 20 pantomime 450% and 5 of PEEP. Her gases show pO2 of 91 and a pCO2 37 and a pH 7.38. These are basically normal gases. We drop the time of I 'm down to 350 more appropriate for her and it increased her rate from 20-24. She is a bit dyssynchronous with the ventilator. If she wakes up after stopping the propofol, we may try some PSV CPAP at 10 and 5 respectively. The levophed is off. She getting IV appointment 9 at 75 mL an hour. She's getting different propofol 30 turned on the 20 now off that's mics per kilogram per minute. Cardizem drip is off. She getting vital high protein at 25 with a goal of 25. Chest x-rays essentially unchanged. The patient is seen again today 11/01/2016 in follow-up. Current vent settings include assist control of 24, tidal volume 350, FiO2 55% and a PEEP of 5. Today' s blood gases reveal a P O2 of 80%, pCO2 36, pH 7.43 on 55% FiO2. Unfortunately , she has again failed to tolerate daily interruption of sedation. She is not making good eye contact. Not following commands. She had desaturations with tachycardia and tachypnea. Her sedation was resumed. She is going for computed tomography scan of the brain today. Her sedation was reapplied at 30 mcg/kg/m. She is on 0.9 normal saline at 75 mL per hour. Continue Cardizem drip at 10 mg per hour. She is on heparin weight based protocol. Her chest x- ray showed some evidence of fluid volume overload along with right basilar infiltrates. The patient is seen again today 11/02/2016 in follow-up. She has again failed daily interruption of sedation and weaning trials. She is not following any simple commands, not making eye contact. She remains on the mechanical ventilator currently at assist control of 24, tidal volume 350, FiO2 55% and a PEEP of 5. Morning blood gases revealed a PaO2 of 86, pCO2 39 pH 7.43. She is currently receiving a 0.9 normal saline at 50 MLS per hour, Cardizem drip at 5 mg per hour, heparin per weight base protocol, Brovana at 20 mcg/m, Vital HP tube feedings at 25 MLS currently at goal. Her chest x-ray does show improvement in her congestive heart failure and fluid volume overload. Objective - Vital Signs Vital signs: Vital Signs Temp 98.0 F 11/02/16 08:00 Pulse 80 11/02/16 10:00 Resp 14 11/02/16 10:00 BP 113/51 11/02/16 10:00 Pulse Ox 89 L 11/02/16 10:00 Intake & Output 11/01/16 11/02/16 11/02/16 18:59 06:59 18:59 Intake Total 4048.271 0089.998 265.644 Output Total 2513 1370 375 Balance -683.224 57.998 -109.356 Weight 81.9 kg Intake: IV 325 Magnesium Sulfate-D5w Pmx 100 1 gm In Dextrose/Water 1 100ml.bag @ 100 mls/hr IVPB Q1H AD Rx#: [id number] Sodium Chloride 0.9% 1, 225 000 ml @ 75 mls/hr IV . [id number] AD Rx#:[id number] Intake, IV Titration 1124.776 942.998 130.644 Amount Diltiazem 125 mg In 78.5 45.833 Sodium Chloride 0.9% 100 ml @ 5 MG/HR 5 mls/hr IV .Q24H AD Rx#:[id number] Heparin Sodium,Porcine/ 437.576 D5w Pmx 25,000 unit In Dextrose/Water 1 500ml. bag @ 12 UNITS/KG/HR 19. 77 mls/hr IV .Q24H AD Rx #:[id number] Magnesium Sulfate-D5w Pmx 100 1 gm In Dextrose/Water 1 100ml.bag @ 100 mls/hr IVPB Q1H AD Rx#: [id number] Propofol 500 mg In Empty 158.700 197.165 30.644 Bag 1 bag @ 40 MCG/KG/MIN 19.77 mls/hr IV .Q2H32M AD Rx#:[id number] Sodium Chloride 0.9% 1, 450 600 100 000 ml @ 50 mls/hr IV . Q20H AD Rx#:[id number] Oral 25 Tube Feeding 200 400 75 Other 180 60 60 Output: Urine 2513 1370 375 Other: Voiding Method Indwelling Catheter Indwelling Catheter # Bowel Movements 1 - Exam GENERAL EXAM: Intubated, sedated.. HEAD: Normocephalic. EYES: Sluggish reaction of pupils, equal size. NOSE: Clear with pink turbinates. THROAT: Oral endotracheal and gastric tube secured in place. No erythema or exudates. NECK: No masses, no JVD. CHEST: No chest wall deformity. LUNGS: Equal air entry with eczema by clitoral posterior bases. CVS: S1 and S2 normal with no audible murmurs, regular rhythm. ABDOMEN: No hepatosplenomegaly, normal bowel sounds, no guarding or rigidity. Extremities: There is no significant peripheral edema. No clubbing, no cyanosis. Peripheral pulses are intact. - Labs CBC & Chem 7: 11/02/16 04:21 11/02/16 04:21 Labs: Abnormal Lab Results - Last 24 Hours (Table) 11/02/16 11/02/16 11/02/16 Range/Units 04:21 04:21 04:21 RBC 3.24 L (3.80-5.40) m/uL Hgb 8.7 L (11.4-16.0) gm/dL Hct 27.9 L (34.0-46.0) % RDW 20.5 H (11.5-15.5) % APTT 57.0 H (22.0-30.0) sec ABG pH (7.35-7.45) ABG pCO2 (35-45) mmHg ABG pO2 (83-108) mmHg ABG HCO3 (21-25) mmol/L ABG Total CO2 (19-24) mmol/L ABG O2 Saturation (94-97) % Potassium 3.4 L (3.5-5.1) mmol/L Chloride 111 H (98-107) mmol/L Creatinine 0.50 L (0.52-1.04) mg/dL Calcium 7.5 L (8.4-10.2) mg/dL 11/02/16 11/02/16 Range/Units 07:35 09:27 RBC (3.80-5.40) m/uL Hgb (11.4-16.0) gm/dL Hct (34.0-46.0) % RDW (11.5-15.5) % APTT (22.0-30.0) sec ABG pH 7.34 L (7.35-7.45) ABG pCO2 51 H (35-45) mmHg ABG pO2 71 L (83-108) mmHg ABG HCO3 26 H (21-25) mmol/L ABG Total CO2 26 H 28 H (19-24) mmol/L ABG O2 Saturation 93.0 L (94-97) % Potassium (3.5-5.1) mmol/L Chloride (98-107) mmol/L Creatinine (0.52-1.04) mg/dL Calcium (8.4-10.2) mg/dL Assessment and Plan Plan: Impression: 1 Acute sepsis in a patient with acute influenza infection, complicated by pneumonia mostly involving the left lower lobe, and right lower lobe and colitis /diverticulitis. The exact source of her sepsis could also be related to her urinary tract infection secondary to S3 she had E. coli 2 Acute influenza infection, patient is presently on Tamiflu 3 acute bilateral pneumonia mostly involving the left lower lobe but is also involving the right lower lobe to some extent. This is felt to be pneumonia as a complication of acute influenza infection. Progressively worsen requiring intubation and mechanical ventilatory support. 4 acute urinary tract infection 5 history of underlying COPD severity of which is not clear but possibly mild to moderate. 6 history of GERD without esophagitis. Plan: The patient was seen and evaluated by Dr. Vyas. Her chest x-ray, labs and ABGs were reviewed. The patient did not tolerate interruption of sedation today. We had discussions with the patient's daughter in regards to probable need for tracheostomy and PEG tube placements. And continued weaning trials. She is reluctant to proceed in this regard and is asking questions about extubation, hospice and comfort care. She'll be discussing this with her stepfather and letting us know which way they want us to proceed. In the interim we'll continue with full supportive care. She is a DO NOT RESUSCITATE CODE STATUS. Critical care time 35 minutes.
[2016-11-02] MEDS: HEPARIN SODIUM,PORCINE/D5W PMX 25,000 UNIT in DEXTROSE/WATER 1 500ML.BAG IV SCH (11:40)
--- NOTE | 2016-11-02 12:50 | PN ---
Mrs. Hughes is a 81-year-old female who presented with respiratory failure requiring mechanical ventilation. She had episode of atrial fibrillation, but continues to be in sinus mechanism at this time. She is maintained on oral amiodarone as well as IV Cardizem and IV heparin. She remains intubated, nonresponsive. She felt extubation trial this morning. Hemodynamically her blood pressure is on the lower side, but she has no evidence of atrial fibrillation. Her left ventricular systolic function by echocardiography during this admission was reported showing an ejection fraction of 40% to 45%. She continues to be on the IV Cardizem at ( ) mg, amiodarone 400 mg twice a day, IV heparin. PHYSICAL EXAMINATION: Blood pressure running in the 100s to 80s with the heart rate in the 80s. LUNGS: Clear anteriorly. HEART: Regular rate and rhythm. S1, S2, no S3, no rub. ABDOMEN: Soft. No organomegaly. EXTREMITIES: No edema. Lab data revealed a BUN and creatinine 16 and 0.5. Potassium 4.3. Hemoglobin of 8.7. IMPRESSION: 1. Respiratory failure related to a pulmonary infection. 2. Paroxysmal atrial fibrillation. 3. Cardiomyopathy. RECOMMENDATION: From the cardiac standpoint, I will stop the IV Cardizem at this time. We will continue the amiodarone and the IV heparin. Awaiting further recommendation and decision regarding her weaning and longterm treatment.
[2016-11-02] MEDS: LEVOFLOXACIN 500 MG TAB PO SCH (13:58)
[2016-11-02] MEDS: FUROSEMIDE 10 MG/ML 4 ML VIAL IV SCH ×2 (16:28→23:32)
[2016-11-02] MEDS ORDERED: DEXTROSE 5% IN WATER 250 ML with AMIODARONE 300 MG IV ONE (16:50)
--- NOTE | 2016-11-02 17:03 | P.CNNES ---
History of Present Illness Consult date: 11/02/16 Reason for Consult: This patient is on the ventilator and remains obutunded. History of Present Illness: This patient is a 81-year-old right-handed white female who was admitted to hospital with acute respiratory failure. Patient presented with symptoms of systemic inflammatory response syndrome with associated bilateral lower lobe pneumonias with E. coli urinary tract infection. She was intubated and remains in the intensive care unit. She has been followed closely by pulmonary medicine. Several attempts were made to wean the patient off the ventilator and these have been unsuccessful. Due to her very lethargic state then upped up 10 patient she was sent for computed tomography scan of the brain yesterday which was reported negative with no evidence of acute stroke or hemorrhage. As per pulmonary medicine's recommendation there considering whether the patient has significant respiratory failure and may require tracheostomy and PEG tube placement. Apparently her daughter has mentioned to the ICU staff that she does not want to pursue these interventions as this was not the patient's wishes previously. The patient has also had episodes of intermittent atrial fibrillation. She is now back in normal sinus rhythm. Several attempts have been made to wean the patient off of the ventilator and they have been unsuccessful. She has been taken off of Diprivan intermittently with not much improvement in her overall status. She was also recently found to have acute influenza infection and was treated with Tamiflu. The patient did not tolerate interruption of sedation yesterday and today. As noted pulmonary medicine is leaning towards aggressive treatment with tracheostomy and PEG tube placement if the daughter wishes to proceed. The daughter as mentioned is very reluctant and for this reason neurology was consulted today for further neurological evaluation of this patient's overall neurological status. As noted her CAT scan of the brain failed to reveal any acute intracranial abnormality. She was able to undergo EEG testing today for further evaluation. The patient remains intubated on the ventilator. She does not respond to verbal commands. She does open her eyes to sternal rub. She does withdraw to pain. She does not make eye contact and is not able to track and follow any commands at this time. Her cardiopulmonary status remains stable at this time. She has been on intermittent sedation as well. As noted she has failed several weaning trials recently. The patient underwent routine EEG today for further assessment of her neurological status. EEG is diffusely slow with a background of 4 Hz. This suggest a severe metabolic encephalopathy with no evidence of any epileptiform discharges. The results of the EEG were discussed today with the patient's daughter in the ICU nursing staff. These findings have also been related to Dr. Jarvis who is the attending physician of record. According to the daughter today she wishes to consider comfort care measures for this patient. We have updated her on the results of the EEG today. We will await her final decision and recommendations to the ICU nursing staff in terms of ongoing care at this time. This patient's overall prognosis at this time remains very guarded. Neurology has been consulted for further evaluation and recommendations. Review of Systems ROS unobtainable: due to endotracheal tube Constitutional: Denies chills, Denies fever Neurological: Reports change in mentation, Reports confusion Past Medical History Past Medical History: COPD Additional Past Medical History / Comment(s): diverticulosis, uterine cancer History of Any Multi-Drug Resistant Organisms: None Reported Past Surgical History: Appendectomy, Hysterectomy Past Anesthesia/Blood Transfusion Reactions: No Reported Reaction Past Psychological History: Anxiety, Depression Smoking Status: Former smoker Past Alcohol Use History: None Reported Past Drug Use History: None Reported - Past Family History Mother Family Medical History: Congestive Heart Failure (CHF), Diabetes Mellitus Father Family Medical History: Congestive Heart Failure (CHF) Additional Family Medical History / Comment(s): lung cancer Sister(s) Family Medical History: Congestive Heart Failure (CHF), Diabetes Mellitus Brother(s) Family Medical History: Congestive Heart Failure (CHF), Diabetes Mellitus Medications and Allergies Home Medications Medication Instructions Recorded Confirmed Type ALPRAZolam [Xanax] 0.5 mg PO DAILY PRN 10/26/16 10/26/16 History Albuterol Sulfate [Proair Hfa] 1 puff INHALATION RT-DAILY PRN 10/26/16 10/26/16 History Aspirin [Adult Low Dose Aspirin EC] 81 mg PO DAILY 10/26/16 10/26/16 History Loperamide [Imodium] 2 mg PO QID PRN 10/26/16 10/26/16 History Montelukast Sodium [Singulair] 10 mg PO HS 10/26/16 10/26/16 History Omeprazole 20 mg PO DAILY 10/26/16 10/26/16 History Allergies Allergy/AdvReac Type Severity Reaction Status Date / Time erythromycin base Allergy Unknown Verified 10/26/16 15:04 [From Erythrocin] Penicillins Allergy Unknown Verified 10/26/16 15:04 albuterol [From DuoNeb] AdvReac Rapid Verified 10/28/16 11:24 Heart Rate ipratropium [From DuoNeb] AdvReac Rapid Verified 10/28/16 11:25 Heart Rate Physical Examination - Vital Signs Vital Signs: Vital Signs Temp Pulse Resp BP Pulse Ox 11/02/16 16:00 98.1 F 129 H 19 119/50 96 11/02/16 15:30 68 23 116/50 96 11/02/16 15:00 103 H 21 115/46 94 L 11/02/16 14:30 75 25 H 111/42 95 11/02/16 14:00 76 18 119/47 93 L 11/02/16 13:30 74 23 113/54 92 L 11/02/16 13:00 73 22 119/39 97 11/02/16 12:30 77 18 124/46 99 11/02/16 12:00 65 23 96/44 99 11/02/16 11:30 97.5 F L 63 19 94/42 94 L 11/02/16 11:00 64 19 85/38 91 L 11/02/16 10:30 67 21 85/42 89 L 11/02/16 10:00 80 14 113/51 89 L 11/02/16 09:30 96 26 H 162/72 89 L 11/02/16 09:00 91 29 H 168/55 90 L 11/02/16 08:30 84 12 144/54 98 11/02/16 08:00 98.0 F 70 14 122/49 89 L 11/02/16 07:30 72 21 136/56 99 11/02/16 07:00 74 23 137/50 97 11/02/16 06:30 75 20 141/53 96 11/02/16 06:00 71 22 124/52 96 11/02/16 05:30 70 24 120/51 95 11/02/16 05:00 69 20 113/50 95 11/02/16 04:30 68 20 117/52 95 11/02/16 04:00 97.7 F 68 20 113/46 94 L 11/02/16 03:44 95 11/02/16 03:30 66 20 123/52 95 11/02/16 03:00 69 23 122/56 96 11/02/16 02:30 68 22 115/51 94 L 11/02/16 02:00 69 21 116/50 95 11/02/16 01:30 69 22 119/52 95 11/02/16 01:00 70 20 115/46 96 11/02/16 00:30 68 20 122/50 94 L 11/02/16 00:00 98.7 F 60 20 99/43 93 L 11/01/16 23:30 64 20 102/44 95 11/01/16 23:00 61 23 98/44 94 L 11/01/16 22:30 61 21 95/44 94 L 11/01/16 22:17 61 22 95/41 93 L 11/01/16 22:00 61 20 96/40 93 L 11/01/16 21:30 63 20 108/46 92 L 11/01/16 21:00 64 24 101/45 92 L 11/01/16 20:30 71 20 110/53 96 11/01/16 20:00 97.9 F 71 17 118/53 96 11/01/16 19:30 63 22 94/42 93 L 11/01/16 19:00 64 22 85/41 92 L 11/01/16 18:30 65 21 97/43 92 L 11/01/16 18:00 68 23 115/50 96 11/01/16 17:30 73 20 131/51 95 11/01/16 17:00 64 18 86/39 92 L Intake and Output 11/02/16 11/02/16 11/02/16 06:59 14:59 22:59 Intake Total 925.474 4422.872 264.355 Output Total 1050 855 80 Balance -68.424 445.872 184.355 Intake: Intake, IV Titration 646.576 900.872 189.355 Amount Diltiazem 125 mg In 45.833 Sodium Chloride 0.9% 100 ml @ 5 MG/HR 5 mls/hr IV .Q24H [facility] Rx#:[id number] Heparin Sodium,Porcine/ 446.472 D5w Pmx 25,000 unit In Dextrose/Water 1 500ml. bag @ 12 UNITS/KG/HR 19. 77 mls/hr IV .Q24H [facility] Rx #:[id number] Magnesium Sulfate-D5w Pmx 100 1 gm In Dextrose/Water 1 100ml.bag @ 100 mls/hr IVPB Q1H [facility] Rx#: [id number] Propofol 150 ml As IV . 54.4 39.6 [facility] Rx#:[id number] Propofol 500 mg In Empty 100.743 50.000 49.755 Bag 1 bag @ 40 MCG/KG/MIN 19.77 mls/hr IV .Q2H32M [facility] Rx#:[id number] Sodium Chloride 0.9% 1, 400 350 100 000 ml @ 50 mls/hr IV . Q20H [facility] Rx#:[id number] Oral 25 Tube Feeding 250 250 75 Other 60 150 Output: Urine 1050 855 80 Other: Voiding Method Indwelling Catheter Indwelling Catheter Indwelling Catheter # Bowel Movements 2 - Constitutional General appearance: average body habitus - EENT EENT: mucous membranes moist - Respiratory Respiratory: lungs clear, normal breath sounds - Cardiovascular Cardiovascular: regular rate, normal S1, normal S2 Extremities: no peripheral edema bilaterally - Gastrointestinal Gastrointestinal: normoactive bowel sounds - Integumentary Integumentary: normal - Neurologic Cranial nerve examination: PERRL, EOMI, V1/V2/V3 grossly intact, face symmetric , intact corneal reflex Speech examination: intact Sensorimotor examination: intact Motor examination - right side: 2/5: biceps, triceps, wrist flexion, wrist extension, justice court deputy clerk, hip flexors, knee extensors, dorsiflexion, toe extension (EHL) , plantarflexion Motor examination - left side: 2/5: biceps, triceps, wrist flexion, wrist extension, justice court deputy clerk, hip flexors, knee extensors, dorsiflexion, toe extension (EHL) , plantarflexion Detailed sensory examination: intact Reflex and gait examination: intact Reflexes: 1+: ankle, bicep, knee, tricep - Musculoskeletal Musculoskeletal: no pain Results - Laboratory Findings CBC and BMP: 11/02/16 04:21 11/02/16 10:24 Abnormal Lab Findings: Abnormal Labs 10/26/16 10/26/16 10/26/16 16:40 19:50 22:30 WBC RBC Hgb Hct MCHC RDW Plt Count Neutrophils # (Manual) Lymphocytes # (Manual) APTT ABG pH ABG pCO2 ABG pO2 ABG HCO3 ABG Total CO2 ABG O2 Saturation Sodium Potassium Chloride Carbon Dioxide BUN Creatinine Glucose POC Glucose (mg/dL) Plasma Lactic Acid Adriano 4.0 H* Calcium Phosphorus AST Alkaline Phosphatase Troponin I 0.480 H* Total Protein Albumin Influenza Type B (PCR) Detected H 10/27/16 10/27/16 10/27/16 03:40 03:40 03:40 WBC 27.4 H* RBC Hgb 10.9 L Hct MCHC 30.3 L RDW 20.0 H Plt Count 89 L Neutrophils # (Manual) 26.3 H Lymphocytes # (Manual) 0.3 L APTT ABG pH ABG pCO2 ABG pO2 ABG HCO3 ABG Total CO2 ABG O2 Saturation Sodium Potassium Chloride 113 H Carbon Dioxide 15 L BUN 22 H Creatinine Glucose 71 L POC Glucose (mg/dL) Plasma Lactic Acid Adriano Calcium 6.6 L Phosphorus AST 47 H Alkaline Phosphatase Troponin I 0.364 H* Total Protein 5.8 L Albumin 2.7 L Influenza Type B (PCR) 10/27/16 10/28/16 10/28/16 04:47 04:15 04:15 WBC 13.6 H RBC 3.55 L Hgb 9.7 L Hct 30.5 L MCHC RDW 20.2 H Plt Count 87 L Neutrophils # (Manual) 13.1 H Lymphocytes # (Manual) 0.3 L APTT ABG pH ABG pCO2 ABG pO2 ABG HCO3 ABG Total CO2 ABG O2 Saturation Sodium Potassium 3.2 L Chloride 108 H Carbon Dioxide 19 L BUN 19 H Creatinine Glucose POC Glucose (mg/dL) 74 L Plasma Lactic Acid Adriano Calcium 7.0 L Phosphorus AST 43 H Alkaline Phosphatase Troponin I Total Protein 5.4 L Albumin 2.4 L Influenza Type B (PCR) 10/28/16 10/28/16 10/29/16 09:23 12:03 00:17 WBC RBC Hgb Hct MCHC RDW Plt Count Neutrophils # (Manual) Lymphocytes # (Manual) APTT ABG pH 7.31 L ABG pCO2 ABG pO2 ABG HCO3 20 L ABG Total CO2 ABG O2 Saturation Sodium Potassium 3.0 L* 3.2 L Chloride Carbon Dioxide BUN Creatinine Glucose POC Glucose (mg/dL) Plasma Lactic Acid Adriano Calcium Phosphorus AST Alkaline Phosphatase Troponin I Total Protein Albumin Influenza Type B (PCR) 10/29/16 10/29/16 10/29/16 01:36 04:35 04:35 WBC RBC 3.17 L Hgb 8.8 L Hct 28.2 L MCHC RDW 20.3 H Plt Count 92 L Neutrophils # (Manual) Lymphocytes # (Manual) 0.4 L APTT ABG pH ABG pCO2 34 L ABG pO2 207 H ABG HCO3 18 L ABG Total CO2 ABG O2 Saturation 99.0 H Sodium 134 L Potassium 5.3 H Chloride 110 H Carbon Dioxide 18 L BUN 20 H Creatinine Glucose POC Glucose (mg/dL) Plasma Lactic Acid Adriano Calcium 7.0 L Phosphorus AST 38 H Alkaline Phosphatase 134 H Troponin I Total Protein 5.3 L Albumin 2.3 L Influenza Type B (PCR) 10/29/16 10/30/16 10/30/16 07:51 04:06 04:06 WBC RBC 3.55 L Hgb 9.7 L Hct 31.4 L MCHC 30.8 L RDW 20.4 H Plt Count 121 L Neutrophils # (Manual) Lymphocytes # (Manual) 0.9 L APTT ABG pH 7.31 L ABG pCO2 34 L ABG pO2 81 L ABG HCO3 17 L ABG Total CO2 18 L ABG O2 Saturation Sodium Potassium Chloride 116 H Carbon Dioxide 19 L BUN Creatinine Glucose 109 H POC Glucose (mg/dL) Plasma Lactic Acid Adriano Calcium 7.0 L Phosphorus 2.0 L AST Alkaline Phosphatase Troponin I Total Protein Albumin Influenza Type B (PCR) 10/30/16 10/31/16 10/31/16 05:15 04:23 04:23 WBC RBC 3.36 L Hgb 9.2 L Hct 29.0 L MCHC RDW 20.9 H Plt Count 133 L Neutrophils # (Manual) Lymphocytes # (Manual) APTT ABG pH ABG pCO2 34 L ABG pO2 ABG HCO3 18 L ABG Total CO2 ABG O2 Saturation 98.0 H Sodium Potassium Chloride 116 H Carbon Dioxide 21 L BUN Creatinine 0.50 L Glucose 115 H POC Glucose (mg/dL) Plasma Lactic Acid Adriano Calcium 7.4 L Phosphorus AST Alkaline Phosphatase Troponin I Total Protein Albumin Influenza Type B (PCR) 10/31/16 10/31/16 11/01/16 14:22 21:03 04:08 WBC RBC Hgb Hct MCHC RDW Plt Count Neutrophils # (Manual) Lymphocytes # (Manual) APTT 32.1 H 56.9 H ABG pH ABG pCO2 ABG pO2 ABG HCO3 ABG Total CO2 ABG O2 Saturation Sodium Potassium Chloride 114 H Carbon Dioxide BUN Creatinine 0.50 L Glucose 104 H POC Glucose (mg/dL) Plasma Lactic Acid Adriano Calcium 7.4 L Phosphorus AST Alkaline Phosphatase Troponin I Total Protein Albumin Influenza Type B (PCR) 11/01/16 11/01/16 11/01/16 04:08 04:08 05:25 WBC RBC 3.47 L Hgb 9.4 L Hct 30.3 L MCHC RDW 20.3 H Plt Count Neutrophils # (Manual) Lymphocytes # (Manual) APTT 61.9 H ABG pH ABG pCO2 ABG pO2 80 L ABG HCO3 ABG Total CO2 ABG O2 Saturation Sodium Potassium Chloride Carbon Dioxide BUN Creatinine Glucose POC Glucose (mg/dL) Plasma Lactic Acid Adriano Calcium Phosphorus AST Alkaline Phosphatase Troponin I Total Protein Albumin Influenza Type B (PCR) 11/02/16 11/02/16 11/02/16 04:21 04:21 04:21 WBC RBC 3.24 L Hgb 8.7 L Hct 27.9 L MCHC RDW 20.5 H Plt Count Neutrophils # (Manual) Lymphocytes # (Manual) APTT 57.0 H ABG pH ABG pCO2 ABG pO2 ABG HCO3 ABG Total CO2 ABG O2 Saturation Sodium Potassium 3.4 L Chloride 111 H Carbon Dioxide BUN Creatinine 0.50 L Glucose POC Glucose (mg/dL) Plasma Lactic Acid Adriano Calcium 7.5 L Phosphorus AST Alkaline Phosphatase Troponin I Total Protein Albumin Influenza Type B (PCR) 11/02/16 11/02/16 07:35 09:27 WBC RBC Hgb Hct MCHC RDW Plt Count Neutrophils # (Manual) Lymphocytes # (Manual) APTT ABG pH 7.34 L ABG pCO2 51 H ABG pO2 71 L ABG HCO3 26 H ABG Total CO2 26 H 28 H ABG O2 Saturation 93.0 L Sodium Potassium Chloride Carbon Dioxide BUN Creatinine Glucose POC Glucose (mg/dL) Plasma Lactic Acid Adriano Calcium Phosphorus AST Alkaline Phosphatase Troponin I Total Protein Albumin Influenza Type B (PCR) Assessment and Plan (1) Metabolic encephalopathy Status: Acute Code(s): G93.41 - METABOLIC ENCEPHALOPATHY (2) Failure to wean Status: Acute Code(s): Z99.11 - DEPENDENCE ON RESPIRATOR [VENTILATOR] STATUS (3) Influenza A Status: Acute Code(s): J10.1 - FLU DUE TO OTH IDENT INFLUENZA VIRUS W OTH RESP MANIFEST (4) Left lower lobe pneumonia Status: Acute Code(s): J18.1 - LOBAR PNEUMONIA, UNSPECIFIED ORGANISM (5) Respiratory failure Status: Acute Code(s): J96.90 - RESPIRATORY FAILURE, UNSP, UNSP W HYPOXIA OR HYPERCAPNIA Plan: This patient is a 81-year-old female who was initially admitted to hospital with acute respiratory failure and evidence of systemic inflammatory response syndrome. She also had bilateral lower lobe pneumonia and E. coli urinary tract infection. She has remained intubated on the ventilator for several days in the intensive care unit. Patient's daughter is now considering whether to move towards comfort care measures with the patient. Patient has failed several weaning attempts over the last several days. She was sent for computed tomography scan of the brain yesterday the results which are noted above. CAT scan is negative for any acute stroke or hemorrhage. Patient underwent routine EEG today which is reviewed and does give evidence of severe widespread slowing consistent with a severe encephalopathy. The results of the EEG were reviewed today with the patient's daughter at bedside. She has been updated on her overall neurological status. Pulmonary medicine is recommending to consider tracheostomy and PEG tube placement for this patient as she is failed several weaning attempts. Daughter is now considering all options in terms of further care for this patient. The daughter is very reluctant to proceed with aggressive treatment with tracheostomy and PEG tube placement for the patient. She is now considering possible comfort care measures with supportive care. We have updated the daughter on all of the neurological findings and test results today in detail. We will await her decision in terms of further care and management of this patient in the intensive care unit setting. Case will be discussed with Dr. Jarvis as well today in regards to the results of the EEG and CAT scan. We will await his further recommendations and further treatment of this patient who has a very guarded prognosis at this time. We will continue close neurological follow-up this patient in the intensive care unit. Time with Patient: Greater than 30
[2016-11-02 17:21] LABS: Potassium 4.1 mmol/L (3.5-5.1)
[2016-11-02] MEDS: NOREPINEPHRINE 4 MG in SODIUM CHLORIDE 0.9% 250 ML IV SCH (20:00)
[2016-11-02] MEDS ORDERED: DILTIAZEM 125 MG in SODIUM CHLORIDE 0.9% 100 ML IV SCH (21:00)
--- NOTE | 2016-11-02 22:19 | EEG ---
DATE OF SERVICE: 11/02/2016 INDICATIONS FOR EXAMINATION: This patient is a 81-year-old female currently intubated on the ventilator and is unresponsive. The patient has failed several weaning attempts. The patient remains obtunded on the ventilator. AGE: 81Y EEG FINDINGS: A routine 21-channel, awake digital EEG recording was accomplished utilizing the 10-20 international system with bipolar and referential montages. The background activity in the most alert resting state consists of a low to medium amplitude, poorly-developed and poorly-sustained 4 Hz activity over the posterior head regions. This posterior rhythm attenuates minimally to any eye movement. There is a small amount of low amplitude 18-20 Hz beta activity seen maximally over the anterior head regions. Muscle and movement artifact was observed on a few occasions during the tracing. Hyperventilation was not performed. Photic stimulation at flash frequencies of 2-30 Hz produced a minimal occipital driving response. No epileptiform discharges were seen. IMPRESSION: This EEG gives evidence of a severe widespread disturbance in cerebral function. The EEG failed to reveal any focal, lateralized or epileptiform abnormalities. Clinical correlation is recommended.
[2016-11-03] MEDS: PROPOFOL 500 MG in EMPTY BAG 1 BAG IV SCH ×4 (01:11→05:47)
[2016-11-03] MEDS: SODIUM CHLORIDE 0.9% 1,000 ML IV SCH (01:17)
[2016-11-03] MEDS ORDERED: ATROPINE SULFATE 0.1 MG/ML 10ML SYRINGE ONE (02:29)
[2016-11-03] MEDS ORDERED: ATROPINE SULFATE 0.1 MG/ML 10ML SYRINGE IV STA (03:19)
[2016-11-03] MEDS ORDERED: Potassium Replacement Protocol 1 EACH MISC MISCELLANE PRN ×2 (04:50→04:51)
[2016-11-03 04:54] LABS: Anisocytosis Moderate; Aty Lym Flag Moderate; CH 26.9; CHCM 31.3; HCT 30.5 % (34.0-46.0); HDW 3.05; HGB 9.8 gm/dL (11.4-16.0); Hypochromasia Slight; Immature Gran Flag Marked; MCH 27.7 pg (25.0-35.0); MCHC 32.2 g/dL (31.0-37.0); MCV 85.9 fL (80.0-100.0); Mean Platelet Volume 8.4; Microcytosis Slight; RBC 3.55 m/uL (3.80-5.40); RDW 20.6 % (11.5-15.5); WBC 11.6 k/uL (3.8-10.6)
[2016-11-03] MEDS ORDERED: POTASSIUM CHLORIDE ORAL LIQUID 40 MEQ/30 ML CUP NG-TUBE SCH (05:00)
[2016-11-03 05:18] LABS: Anion Gap 5 mmol/L; Blood Urea Nitrogen 14 mg/dL (7-17); Calcium 7.5 mg/dL (8.4-10.2); Carbon Dioxide 32 mmol/L (22-30); Chloride 107 mmol/L (98-107); Glucose 99 mg/dL (74-99); Magnesium 1.6 mg/dL (1.6-2.3); Non-African American GFR(MDRD) >60 (>60 ml/min/1.73 sqM); Phosphorous 3.8 mg/dL (2.5-4.5); Potassium 3.6 mmol/L (3.5-5.1); Sodium 144 mmol/L (137-145)
[2016-11-03 05:19] LABS: Add Differential Manual Differential
[2016-11-03 05:23] LABS: Large Platelets Present; Manual Review Performed; Nucleated Red Blood Cells 0 /100 WBC (0-0); Total Cells Counted 200
[2016-11-03] MEDS ORDERED: Magnesium Replacement Protocol 1 EACH MISC MISCELLANE PRN (05:35)
[2016-11-03] MEDS: MAGNESIUM SULFATE-D5W PMX 1 GM in DEXTROSE/WATER 1 100ML.BAG IVPB SCH ×2 (05:40→06:43)
[2016-11-03] MEDS: LEVALBUTEROL NEB 1.25 MG/3 ML AMP INHALATION SCH ×2 (07:16→12:04)
--- NOTE | 2016-11-03 07:21 | XR ---
EXAMINATION TYPE: XR chest 1V portable DATE OF EXAM: 11/03/2016 6:56 AM HISTORY: Tube placement. REFERENCE: Previous study dated 11/02/2016. FINDINGS: The patient is ET tube and NG tube remain in place, unchanged in appearance. There are small, bilateral effusions. There is bibasilar airspace disease. There is minimal residual interstitial change. IMPRESSION: RESOLVING CHANGES OF PULMONARY EDEMA.
[2016-11-03] MEDS ORDERED: PROPOFOL 150 ML IV ONE (08:39)
--- NOTE | 2016-11-03 09:43 | P.PN ---
Progress Note - Text The patient is a 81-year-old female who is presently on the ventilator in the intensive care unit here at [facility] after she developed respiratory failure subsequent to an episode of sepsis associated with the bilateral lower lobe pneumonia and E. coli urinary tract infection along with possible diverticular disease with diverticulitis. She also has developed intermittent atrial fibrillation with at times a very rapid ventricular response. There has been several attempts to wean patient from the ventilator and they have been unsuccessful. She has had some stabilization of her chest x-ray findings along with stabilization of her laboratory values but has been unable to be weaned. Neurology consult was done yesterday by Dr. Zuñiga with whom I discussed at length. An EEG revealed severe widespread disturbance of cerebral function with poor prognosis. Patient also has continued to deteriorate with further episodes of atrial fibrillation and also episodes of severe bradycardia treated by cardiology. I discussed at length yesterday also of with pulmonary medicine Dr. Vyas. The patient clinically remains very obtunded. Her temperature is 97.9 with a pulse of 120. Respirations 23. Blood pressure 111/46 and she is 93% saturated on an FiO2 of 55 on the ventilator. Lungs are clear anteriorly but diminished at bases. Heart tones are moderately tachycardic. Not responding to stimuli. Impressions and plans: Patient has previously been made a no code. Discuss further with family this morning. All seem to be in agreement that they would like comfort/hospice care for the patient. Patient in the past has expressed her wishes to not be maintained on ventilator support. Discussed further with nursing staff and will proceed with hospice care at this time. Prognosis very poor. I do not expect terminal event to be too long in coming.
--- NOTE | 2016-11-03 10:04 | P.PN ---
Subjective Progress note dated 10/31/2016 The patient did have daily eruption of sedation yesterday. She became very agitated. Her heart resumed up. He became hypotensive. She became dyssynchronous with the ventilator and after a short period of time without sedation, the patient was recently dated. When attempt that again today. I've had long talks with the daughter on both days. She had appreciates the fact that her mother would not want to be on life support indefinitely. She is not quite ready to make her DO NOT RESUSCITATE yet but soon if no improvement and we did talk about withdrawal life support and she is not there yet is as well. She remains on the ventilator. Her vent settings include the assist control mode rate of 20 pantomime 450% and 5 of PEEP. Her gases show pO2 of 91 and a pCO2 37 and a pH 7.38. These are basically normal gases. We drop the time of I 'm down to 350 more appropriate for her and it increased her rate from 20-24. She is a bit dyssynchronous with the ventilator. If she wakes up after stopping the propofol, we may try some PSV CPAP at 10 and 5 respectively. The levophed is off. She getting IV appointment 9 at 75 mL an hour. She's getting different propofol 30 turned on the 20 now off that's mics per kilogram per minute. Cardizem drip is off. She getting vital high protein at 25 with a goal of 25. Chest x-rays essentially unchanged. Progress note dated 11/03/2016 This is a 81-year-old female who was made comfort measures this morning. We did a yesterday but the primary doctor wanted to wait 1 more day. Apparently the patient had some significant instability last night primarily cardiac in nature and the family decided this morning the remainder get gather all family members around and go ahead and withdraw life support. I think just a right idea. She will get some narcotics and scopolamine patch and benzodiazepines if she needs it. Currently the patient's on the assist control mode rate 24, tidal volume of 350 FiO2 55% PEEP of 5. The IVs appointment 9 at 50. The DIProvan is a 45 mics per kilogram per minute. Heparin weight based protocol. She's getting vital HPI 25 with a goal of 25. She currently is a DO NOT RESUSCITATE. Objective - Vital Signs Vital signs: Vital Signs Temp 97.9 F 11/03/16 07:30 Pulse 65 11/03/16 07:30 Resp 23 11/03/16 07:30 BP 111/46 11/03/16 07:30 Pulse Ox 93 L 11/03/16 07:30 Intake & Output 11/02/16 11/03/16 11/03/16 18:59 06:59 18:59 Intake Total 2109.931 1270.385 150 Output Total 2185 3175 100 Balance -75.069 -1904.615 50 Weight 83.4 kg Intake: Intake, IV Titration 1499.931 870.385 125 Amount Dextrose 5% in Water 250 253 ml @ 128 mls/hr IV .Q2H ONE with Amiodarone 300 mg Rx#:[id number] Diltiazem 125 mg In 25 Sodium Chloride 0.9% 100 ml @ 5 MG/HR 5 mls/hr IV .Q24H [facility] Rx#:[id number] Heparin Sodium,Porcine/ 446.472 D5w Pmx 25,000 unit In Dextrose/Water 1 500ml. bag @ 12 UNITS/KG/HR 19. 77 mls/hr IV .Q24H AD Rx #:[id number] Magnesium Sulfate-D5w Pmx 100 1 gm In Dextrose/Water 1 100ml.bag @ 100 mls/hr IVPB Q1H AD Rx#: [id number] Magnesium Sulfate-D5w Pmx 100 1 gm In Dextrose/Water 1 100ml.bag @ 100 mls/hr IVPB Q1H DA Rx#: [id number] Norepinephrine 4 mg In 29.527 Sodium Chloride 0.9% 250 ml @ Titrate IV .Q0M AD Rx#:[id number] Propofol 150 ml As IV . 94.0 STK-[facility] ONE Rx#:[id number] Propofol 150 ml As IV . 19.8 [facility] ONE Rx#:[id number] Propofol 500 mg In Empty 136.659 140.858 Bag 1 bag @ 40 MCG/KG/MIN 19.77 mls/hr IV .Q2H32M AD Rx#:[id number] Sodium Chloride 0.9% 1, 550 575 25 000 ml @ 50 mls/hr IV . Q20H AD Rx#:[id number] Oral 25 Tube Feeding 400 400 Other 210 Output: Urine 2185 3175 100 Other: Voiding Method Indwelling Catheter Indwelling Catheter # Bowel Movements 2 - Exam No acute distress, currently sedated. On the mechanical ventilator. NG tube and endotracheal tube in place. HEENT examination is unremarkable. Neck supple. Full range of motion. Cardiovascular examination reveals regular rhythm rate. Heart rate in the 70s. No murmur. S1 and S2 normal. Lungs reveal a few scattered coarse rhonchi. Breath sounds diminished. Abdomen soft. Extremities are intact. - Labs CBC & Chem 7: 11/03/16 04:26 11/03/16 04:26 Labs: Abnormal Lab Results - Last 24 Hours (Table) 11/03/16 11/03/16 11/03/16 Range/Units 04:26 04:26 04:26 WBC 11.6 H (3.8-10.6) k/uL RBC 3.55 L (3.80-5.40) m/uL Hgb 9.8 L (11.4-16.0) gm/dL Hct 30.5 L (34.0-46.0) % RDW 20.6 H (11.5-15.5) % Monocytes # (Manual) 2.4 H (0-1.0) k/uL APTT 50.9 H (22.0-30.0) sec Carbon Dioxide 32 H (22-30) mmol/L Creatinine 0.50 L (0.52-1.04) mg/dL Calcium 7.5 L (8.4-10.2) mg/dL Assessment and Plan (1) Respiratory failure Status: Acute (2) Influenza A Status: Acute (3) GERD (gastroesophageal reflux disease) Status: Acute (4) COPD (chronic obstructive pulmonary disease) Status: Acute (5) Atrial fibrillation Status: Acute (6) Failure to wean Status: Acute (7) Failure to wean from mechanical ventilation Status: Acute (8) Left lower lobe pneumonia Status: Acute (9) Sepsis Status: Acute Plan: Plan dated 10/31/2016 The patient's depression plan will be discontinued. We'll do a full daily eruption of sedation. We change a been a bit. The rate was increased from 20- 20 for the time of I'm down from 400-350. She's a bit dyssynchronous with the ventilator. We will call the respiratory therapist. We'll try some PSV of 10 CPAP of 5 to maybe see if she sinks with the ventilator better and on those settings. We'll continue tube feeds. Medications x-rays and labs are reviewed. Prognosis is guarded. I fed ongoing discussions with the daughter. She appreciates the seriousness of the situation. We'll continue to follow. Plan dated 11/03/2016 The patient has been made comfort measures. The patient's endotracheal tube will be removed. Likewise, the NG tube will be removed. We'll place her on a mask and/or nasal prongs. IV will be turned on the KVO. All unnecessary medications will be discontinued. The patient will receive narcotics for pain in dyspnea. Additional recommendations suggestions are forthcoming. I did explain to the family that her may not be imminent and she may linger for hours or even a day or 2. Time with Patient: Greater than 30
[2016-11-03 12:32] VITALS: TEMP 97.5
[2016-11-03] MEDS: AMIODARONE 200 MG TAB PO SCH (12:32)
[2016-11-03] MEDS: PANTOPRAZOLE 40 MG/10 ML VIAL IV SCH (12:32)
[2016-11-03] MEDS: CHLORHEXIDINE GLUCONATE 15 ML CUP MUCOUS MEM SCH (12:32)
[2016-11-03] MEDS: FUROSEMIDE 10 MG/ML 4 ML VIAL IV SCH (12:33)
--- NOTE | 2016-11-03 13:05 | P.PN ---
Subjective This patient is a 81-year-old female who was seen in neurology consultation yesterday for evaluation of up to in duration and failure to wean off of the ventilator. She was admitted with multiple medical problems including influenza A and respiratory failure. She had been intubated for further treatment. She has multiple complex medical issues in the past. Due to respiratory failure she was intubated and placed into the intensive care unit. Several attempts to wean the patient off of the ventilator failed. Yesterday family requested further neurological assessment. She had undergone a computed tomography scan of the brain 2 days ago which was reviewed and was negative for any acute changes. She underwent a routine EEG yesterday which was reviewed and revealed severe slowing consistent with a anoxic/hypoxic encephalopathy. This was felt to be secondary to respiratory failure. Case was discussed at length yesterday with the patient's daughter as well as with her primary care physician Dr. Jarvis. The patient was made day no cold by the daughter yesterday. Today pulmonary medicine has reevaluated her. She did develop some difficulty last night with further deterioration in her cardiac function. She had further episodes of atrial fibrillation and severe bradycardia. Cardiology has been following this as well. The daughter and several family members had a long discussion today with Dr. Jarvis as well as with Dr. Vyas who is treating her pulmonary condition. Family has decided this morning to make the patient comfort care measures only. She is going to be extubated with supportive care only. Comfort measures are currently in place. All physicians again agree that her overall prognosis is very poor given her current status. Family members are comfortable with current decision to make her comfort care measures. We will continue to follow her neurologically as needed. As noted her overall prognosis is very poor. Objective - Vital Signs Vital signs: Vital Signs Temp 97.5 F L 11/03/16 12:00 Pulse 103 H 11/03/16 12:00 Resp 20 11/03/16 12:00 BP 80/45 11/03/16 12:00 Pulse Ox 90 L 11/03/16 12:00 Intake & Output 11/02/16 11/03/16 11/03/16 18:59 06:59 18:59 Intake Total 2109.931 1270.385 789.0 Output Total 2185 3175 490 Balance -75.069 -1904.615 299.0 Weight 83.4 kg 83.4 kg Intake: Intake, IV Titration 1499.931 870.385 474.0 Amount Dextrose 5% in Water 250 253 ml @ 128 mls/hr IV .Q2H ONE with Amiodarone 300 mg Rx#:[id number] Diltiazem 125 mg In 25 Sodium Chloride 0.9% 100 ml @ 5 MG/HR 5 mls/hr IV .Q24H AD Rx#:[id number] Heparin Sodium,Porcine/ 446.472 D5w Pmx 25,000 unit In Dextrose/Water 1 500ml. bag @ 12 UNITS/KG/HR 19. 77 mls/hr IV .Q24H AD Rx #:[id number] Magnesium Sulfate-D5w Pmx 100 1 gm In Dextrose/Water 1 100ml.bag @ 100 mls/hr IVPB Q1H AD Rx#: [id number] Magnesium Sulfate-D5w Pmx 100 1 gm In Dextrose/Water 1 100ml.bag @ 100 mls/hr IVPB Q1H AD Rx#: [id number] Norepinephrine 4 mg In 29.527 Sodium Chloride 0.9% 250 ml @ Titrate IV .Q0M AD Rx#:[id number] Propofol 150 ml As IV . 94.0 [facility] ONE Rx#:[id number] Propofol 150 ml As IV . 19.8 [facility] ONE Rx#:[id number] Propofol 150 ml As IV . 99.0 [facility] ONE Rx#:[id number] Propofol 500 mg In Empty 136.659 140.858 Bag 1 bag @ 40 MCG/KG/MIN 19.77 mls/hr IV .Q2H32M AD Rx#:[id number] Sodium Chloride 0.9% 1, 550 575 275 000 ml @ 50 mls/hr IV . Q20H AD Rx#:[id number] Oral 25 Tube Feeding 400 400 200 Other 210 90 Output: Urine 2185 3175 490 Other: Voiding Method Indwelling Catheter Indwelling Catheter Indwelling Catheter # Bowel Movements 2 2 - Exam Physical examination: PHYSICAL EXAMINATION: Patient is resting comfortably in bed. Patient remains intubated and comatose on the ventilator. VITAL SIGNS: Blood pressure is [80/45]. Heart rate is [103]. Respiration is [20] . Temperature is [97.5]. HEENT: Head is atraumatic, neck is supple, there were no carotid bruits. CHEST: Lungs are clear to auscultation and percussion. CARDIAC: S1, S2 normal rate and rhythm. There is no murmur. ABDOMEN: Soft and nontender. Bowel sounds are present. EXTREMITIES: There is no pedal edema. Peripheral pulses are present. Neurological examination: Patient remains obtunded and comatose on the ventilator. Family is now decided to make her comfort care measures only. - Labs CBC & Chem 7: 11/03/16 04:26 11/03/16 09:11 Labs: Abnormal Lab Results - Last 24 Hours (Table) 11/03/16 11/03/16 11/03/16 Range/Units 04:26 04:26 04:26 WBC 11.6 H (3.8-10.6) k/uL RBC 3.55 L (3.80-5.40) m/uL Hgb 9.8 L (11.4-16.0) gm/dL Hct 30.5 L (34.0-46.0) % RDW 20.6 H (11.5-15.5) % Monocytes # (Manual) 2.4 H (0-1.0) k/uL APTT 50.9 H (22.0-30.0) sec Carbon Dioxide 32 H (22-30) mmol/L Creatinine 0.50 L (0.52-1.04) mg/dL Calcium 7.5 L (8.4-10.2) mg/dL Assessment and Plan (1) Metabolic encephalopathy Status: Acute Code(s): G93.41 - METABOLIC ENCEPHALOPATHY (2) Failure to wean Status: Acute Code(s): Z99.11 - DEPENDENCE ON RESPIRATOR [VENTILATOR] STATUS (3) Influenza A Status: Acute Code(s): J10.1 - FLU DUE TO OTH IDENT INFLUENZA VIRUS W OTH RESP MANIFEST (4) Left lower lobe pneumonia Status: Acute Code(s): J18.1 - LOBAR PNEUMONIA, UNSPECIFIED ORGANISM (5) Respiratory failure Status: Acute Code(s): J96.90 - RESPIRATORY FAILURE, UNSP, UNSP W HYPOXIA OR HYPERCAPNIA Plan: This patient is a 81-year-old female who was initially admitted to hospital with acute respiratory failure and influenza A. She was intubated and placed into the intensive care unit. Neurology was consulted yesterday for further neurological assessment. She had undergone a computed tomography scan of the brain as well as a routine EEG yesterday. Her EEG results were discussed at length with the patient's daughter as well as with Dr. Jarvis. Her EEG was consistent with a severe anoxic/hypoxic encephalopathy. Daughter made the patient no code yesterday. This morning the daughter and family members had a long discussion with Dr. Jarvis and Dr. Vyas and it was decided to make the patient comfort care measures only. She'll be extubated and placed on analgesic drip as needed. Family is aware of her very poor prognosis. Dr. Vyas did have a long discussion with the daughter and family members and they are all in agreement with current plans for comfort care measures for her mother at this time. We will sign off of the case and will be available for any further reevaluation or questions. Her overall prognosis at this time remains very poor.
[2016-11-03 14:43] VITALS: BP 116/56; PULSE 137; RESP 25
--- NOTE | 2016-11-06 18:58 | DS ---
DATE OF ADMISSION: 10/26/2016 DATE OF DISCHARGE: 11/03/2016 Mrs. Hughes is a 81-year-old female who presented initially on about the 26 of October with a history of about 5 days of symptoms with weakness, fevers, cough to the emergency room. There she was found to have multiple sources for infection with a bilateral basilar pneumonia, E. coli urinary tract infection and sigmoid diverticulitis. PATIENT WITH A PENICILLIN ALLERGY, was admitted to the intensive care unit, seen by website developer and Cardiology and antibiotics initiated. Her initial lactic acidosis was elevated at 8. She had acute renal failure with a BUN of 29 and creatinine 2.22. Her urinalysis was turbid with 27 RBCs, 16 WBCs. Her white count was elevated at 24,000, hemoglobin 12.2, platelet count of 103. Chest x-rays revealed pneumonia bilaterally, more so on the left, and a CT scan of the abdomen and pelvis revealed diverticulitis in the proximal sigmoid. Patient in the intensive care unit subsequently developed atrial fibrillation with a very fast ventricular response requiring Cardizem drip and with that, she also developed a systolic congestive heart failure with ejection fraction of 40% to 45% and then acute respiratory failure requiring a ventilator. With the treatment of antibiotics, fluids and respiratory assistance, her metabolic parameters improved and her renal function also improved, but clinically and in practicality, she was unable to be weaned from the ventilator. Neurologically, she did not respond appropriately. She seemed to be in a more obtunded state and despite removing sedation, she was not able to be successfully weaned. A CT scan did not show any evidence of acute stroke. Family, particularly the daughter, first made the patient a no code, and then with subsequent failure to wean the patient and with a followup consult with neurology, Dr. Husain, who felt that on EEG the patient had very diffuse slow activity and that her overall prognosis was very poor and guarded, it was decided that patient could be transferred to hospice care and made comfort care and this was undertaken. The patient was transferred to hospice care. FINAL DISCHARGE DIAGNOSES: 1. Acute sepsis with systemic inflammatory response syndrome associated with gram-negative Escherichia coli urinary tract infection and bilateral basilar pneumonia which resulted in acute respiratory failure requiring ventilator support. 2. She also had a lactic acidosis related to the sepsis. 3. Acute on chronic kidney disease stage 4, partially improved with treatment. 4. Escherichia coli urinary tract infection. 5. Atrial fibrillation with a rapid ventricular response. 6. Acute congestive heart failure with diastolic dysfunction 7. Transient thrombocytopenia secondary to the sepsis. 8. Sigmoid diverticulitis. 9. Underlying chronic obstructive pulmonary disease. 10. Once again, THE PATIENT IS BEING TRANSFERRED TO HOSPICE CARE. Prognosis is very poor.
== END 2016-11-03 15:04 | disposition hospice, inpatient (51) | DRG 870 ==
LOC: EC 12:37 → 6ICU 15:41
PROVIDERS: ADMIT Internal Medicine; ATTEND Internal Medicine
PROC: 5A1955Z Respiratory Ventilation, Greater than 96 Consecutive Hours (ICD-10-PCS; principal; 2016-10-29)
PROC: 0BH17EZ Insertion of Endotracheal Airway into Trachea, Via Natural or Artificial Opening (ICD-10-PCS; 2016-10-29)
PROC: 0D9670Z Drainage of Stomach with Drainage Device, Via Natural or Artificial Opening (ICD-10-PCS; 2016-10-29)
DX: A41.51 Sepsis due to Escherichia coli [E. coli] (principal); J96.20 Acute and chronic respiratory failure, unspecified whether with hypoxia or hypercapnia; J18.9 Pneumonia, unspecified organism; J10.00 Influenza due to other identified influenza virus with unspecified type of pneumonia; G93.41 Metabolic encephalopathy; I50.23 Acute on chronic systolic (congestive) heart failure; G93.1 Anoxic brain damage, not elsewhere classified; E87.2 Acidosis; N18.4 Chronic kidney disease, stage 4 (severe); N17.9 Acute kidney failure, unspecified; I13.0 Hypertensive heart and chronic kidney disease with heart failure and stage 1 through stage 4 chronic kidney disease, or unspecified chronic kidney disease; J44.0 Chronic obstructive pulmonary disease with (acute) lower respiratory infection; K57.32 Diverticulitis of large intestine without perforation or abscess without bleeding; I43 Cardiomyopathy in diseases classified elsewhere; N39.0 Urinary tract infection, site not specified; D69.59 Other secondary thrombocytopenia; E87.8 Other disorders of electrolyte and fluid balance, not elsewhere classified; E86.0 Dehydration; I48.0 Paroxysmal atrial fibrillation; Z66 Do not resuscitate; Z51.5 Encounter for palliative care; K52.9 Noninfective gastroenteritis and colitis, unspecified; H91.90 Unspecified hearing loss, unspecified ear; E78.5 Hyperlipidemia, unspecified; F41.9 Anxiety disorder, unspecified; K21.9 Gastro-esophageal reflux disease without esophagitis; F32.9 Major depressive disorder, single episode, unspecified; Z87.891 Personal history of nicotine dependence; Z90.49 Acquired absence of other specified parts of digestive tract; Z90.710 Acquired absence of both cervix and uterus; Z85.42 Personal history of malignant neoplasm of other parts of uterus; Z88.0 Allergy status to penicillin; Z88.1 Allergy status to other antibiotic agents; Z79.82 Long term (current) use of aspirin; Z79.899 Other long term (current) drug therapy
CPT/HCPCS: 31500; 36415; 36600; 70450; 71010; 71020; 74000; 74176; 80048; 80053; 81001; 82150; 82533; 82550; 82553; 82805; 83605; 83690; 83735; 84100; 84132; 84484; 85025; 85610; 85730; 87040; 87045; 87046; 87070; 87077; 87086; 87186; 87205; 87324; 87449; 87502; 89055; 93005; 93306; 94002; 94003; 94640; 95819; 96361; 96365; 96366; 96367; 96375; 96376; 99285

== ENCOUNTER 2016-11-03 15:04 | Inpatient (IN) | payer OTHER ==
[2016-11-03 15:30] VITALS: BP 151/46; PULSE 141; RESP 26; TEMP 97.9; BMI 35.7
[2016-11-03] MEDS ORDERED: ACETAMINOPHEN TAB 325 MG TAB PO PRN (15:34)
[2016-11-03] MEDS: LORazepam 2 MG/ML SYRINGE IV PRN ×2 (15:43→19:40)
[2016-11-03] MEDS: MORPHINE SULFATE 2 MG/ML SYRINGE IV PRN ×2 (15:48→22:03)
[2016-11-03] MEDS ORDERED: SCOPOLAMINE 1.5MG/72HR PATCH TRANSDERM SCH (16:15)
[2016-11-03] MEDS: SODIUM CHLORIDE 0.9% 1,000 ML IV SCH (18:08)
[2016-11-04] MEDS: LORazepam 2 MG/ML SYRINGE IV PRN ×4 (00:18→20:54)
--- NOTE | 2016-11-04 08:15 | P.PN ---
Progress Note - Text The patient is a 81-year-old female who had acute ventilator-dependent respiratory failure after presentation with pneumonia and influenza viral infection. She also had gram-negative urinary tract infection and diverticulitis found with her workup. She also had recurrent episodes of atrial fib with a rapid ventricular response. She was unable to be weaned from the ventilator as she did have underlying COPD and subsequently was made comfort care and hospice care. Presently she appears comfortable in bed. She does have some agonal type respirations which are regular. She is not responding to any painful stimuli. Discussed with at bedside. Presently overall she seems to be comfortable and we will continue her comfort care measures as per hospice. 's questions were answered to the best my ability. Prognosis poor.
[2016-11-04] MEDS ORDERED: HYOSCYAMINE ORAL DROPS 1.875 MG/15 ML BOTTLE PO PRN ×2 (09:00→10:56)
[2016-11-04] MEDS: ACETAMINOPHEN SUPPOSITORY 650 MG SUPP RECTAL PRN (09:07)
[2016-11-04] MEDS: MORPHINE SULFATE 2 MG/ML SYRINGE IV PRN ×2 (09:07→11:59)
[2016-11-04] MEDS: SODIUM CHLORIDE 0.9% 1,000 ML IV SCH (11:26)
[2016-11-04] MEDS: ARTIFICIAL TEARS-HYPROMELLOSE DROPS 15 ML BTL BOTH EYES PRN ×2 (11:26→20:54)
[2016-11-04] MEDS: MORPHINE SULFATE 4 MG/ML SYRINGE IV PRN ×2 (15:31→19:39)
[2016-11-05] MEDS: MORPHINE SULFATE 4 MG/ML SYRINGE IV PRN ×4 (01:00→19:14)
[2016-11-05] MEDS: LORazepam 2 MG/ML SYRINGE IV PRN ×4 (01:23→16:29)
--- NOTE | 2016-11-05 12:30 | CDI ---
In responding to this query, please exercise your independent professional judgment. The [facility] Coding Staff and Clinical Documentation Specialists appreciate your assistance in clarifying documentation, maintaining compliance with coding guidelines, accurately documenting patients condition and capturing severity of illness. The fact that a question is asked does not imply that any particular answer is desired or expected. Communication forms are a method of clarifying documentation and are not made part of the Legal Health Record. Thank you in advance for your clarification. Last Revision, June 2015 Crystal Barcenas [address] [place] [address] Documentation Clarification Form Date: 11/05/2016 12:20:00 PM From: Carmela Arechiga RN, CCDS Admit Date: 11/03/2016 3:04:00 PM Patient Name: Aurelia Hughes Visit Number: [id number] Dr. Chaim Jarvis History/Risk Factors & Clinical Indicators: 11/04 Attending Progress Note: "acute ventilator-dependent respiratory failure after presentation with pneumonia and influenza viral infection. She also had gram-negative urinary tract infection and diverticulitis found with her workup. She also had recurrent episodes of atrial fib with a rapid ventricular response. " WBC/Left Shift, Lactic acid, Blood cultures: no labs done- Hospice Vitals signs on admission to Hospice: Temp 97.9, HR 141, RR 26, B/P 151/46, Spo2 85% on 6L nasal cannula Treatment: Pt was made comfort measures with hospice care In your professional opinion, can you please clarify if these findings signify one of the following conditions, whether the condition is POA, and cause, if known? Sepsis Severe Sepsis Septic Shock Unable to determine Other, please specify * Identify the (suspected) organism * Link or clarify if there is associated (due to/with): - Organ failure - Shock SIRS Criteria: 2 or more of the following may indicate SIRS Temperature < 96.8F(36C) or > 101.0F (38C) Heart Rate > 90 bpm Respiratory Rate > 20 breaths/min or PaCO2 < 32 mmHg White Blood Cell Count > 12,000 or < 4,000 cells/mm3 or > 10% bands Please document in your progress notes and discharge summary in order to capture severity of illness and risk of mortality. Include clinical findings that support your diagnosis. FYI: Press F11 to launch patient chart. Place X here if this finding has no clinical significance, is not applicable or if you are not able to provide any additional documentation. MTDD
[2016-11-05] MEDS: ACETAMINOPHEN SUPPOSITORY 650 MG SUPP RECTAL PRN (15:52)
[2016-11-05] MEDS: SODIUM CHLORIDE 0.9% 1,000 ML IV SCH (17:01)
[2016-11-05] MEDS ORDERED: LORazepam 2 MG/ML SYRINGE IV PRN (19:26)
--- NOTE | 2016-11-07 10:10 | CDI ---
In responding to this query, please exercise your independent professional judgment. The [facility] Coding Staff and Clinical Documentation Specialists appreciate your assistance in clarifying documentation, maintaining compliance with coding guidelines, accurately documenting patients condition and capturing severity of illness. The fact that a question is asked does not imply that any particular answer is desired or expected. Communication forms are a method of clarifying documentation and are not made part of the Legal Health Record. Thank you in advance for your clarification. Last Revision, June 2015 Crystal Barcenas [address] [place] [address] Documentation Clarification Form 2nd request Mortality Review Date: 11/05/2016 12:20:00 PM From: Carmela Arechiga RN, CCDS Admit Date: 11/03/2016 3:04:00 PM Patient Name: Aurelia Hughes Visit Number: [id number] Dr. Chaim Jarvis History/Risk Factors & Clinical Indicators: 11/04 Attending Progress Note: "acute ventilator-dependent respiratory failure after presentation with pneumonia and influenza viral infection. She also had gram-negative urinary tract infection and diverticulitis found with her workup. She also had recurrent episodes of atrial fib with a rapid ventricular response. " WBC/Left Shift, Lactic acid, Blood cultures: no labs done- Hospice Vitals signs on admission to Hospice: Temp 97.9, HR 141, RR 26, B/P 151/46, Spo2 85% on 6L nasal cannula Treatment: Pt was made comfort measures with hospice care after terminal wean from ventilator In your professional opinion, can you please clarify if these findings signify one of the following conditions, whether the condition is POA, and cause, if known? Sepsis Severe Sepsis Septic Shock Unable to determine Other, please specify * Identify the (suspected) organism * Link or clarify if there is associated (due to/with): - Organ failure - Shock SIRS Criteria: 2 or more of the following may indicate SIRS Temperature < 96.8F(36C) or > 101.0F (38C) Heart Rate > 90 bpm Respiratory Rate > 20 breaths/min or PaCO2 < 32 mmHg White Blood Cell Count > 12,000 or < 4,000 cells/mm3 or > 10% bands Please document in your summary in order to capture severity of illness and risk of mortality. Include clinical findings that support your diagnosis. FYI: Press F11 to launch patient chart. Place X here if this finding has no clinical significance, is not applicable or if you are not able to provide any additional documentation. MARLYSD
--- NOTE | 2016-11-12 11:20 | DS ---
DISCHARGE/EXPIRATION NOTE DATE OF ADMISSION: 11/03/2016 DATE OF DISCHARGE: 11/05/2016 Mrs. Hughes was a 81-year-old female who developed acute ventilator-dependent respiratory failure after presentation with pneumonia along with influenza viral infection and gram-negative urinary tract infection and sigmoid diverticulitis, all found on work-up. Patient was treated with IV antibiotics. Respiratory Therapy, Pulmonary, and Cardiology were on the case. The patient was initially treated in the intensive care unit but with continuing poor mental status, neurological work-up revealed a very poor prognosis. She was unable to successfully be weaned from the ventilator. Family initially had discussed no code but then later she went to hospice care, inpatient here at [facility]. Her case was also complicated by episodes of atrial fib with rapid ventricular response and she later on hospice care. Final diagnoses and cause of : 1. Pneumonia. Primary cause of . 2. Underlying chronic obstructive pulmonary disease. 3. Toxic encephalopathy from gram-negative urinary tract infection. 4. Underlying acute sigmoid diverticulitis. 5. Recurrent atrial fibrillation with rapid ventricular response. The other comorbidities include previous surgical history that includes hysterectomy, appendectomy and cholecystectomy. [facility] subsequently [facility]. [facility]
== END 2016-11-05 20:54 | disposition expired | DRG 193 ==
LOC: 6ICU 15:04 → 5MS5E 17:00
PROVIDERS: ADMIT Internal Medicine; ATTEND Internal Medicine
DX: J11.00 Influenza due to unidentified influenza virus with unspecified type of pneumonia (principal); G92 Toxic encephalopathy; J96.00 Acute respiratory failure, unspecified whether with hypoxia or hypercapnia; Z99.11 Dependence on respirator [ventilator] status; N17.9 Acute kidney failure, unspecified; K57.32 Diverticulitis of large intestine without perforation or abscess without bleeding; I48.91 Unspecified atrial fibrillation; E86.0 Dehydration; N39.0 Urinary tract infection, site not specified; J44.0 Chronic obstructive pulmonary disease with (acute) lower respiratory infection; K57.92 Diverticulitis of intestine, part unspecified, without perforation or abscess without bleeding; Z51.5 Encounter for palliative care; Z88.1 Allergy status to other antibiotic agents; Z88.0 Allergy status to penicillin; Z87.891 Personal history of nicotine dependence; Z79.82 Long term (current) use of aspirin; Z66 Do not resuscitate; Z79.899 Other long term (current) drug therapy; Z88.8 Allergy status to other drugs, medicaments and biological substances; B96.89 Other specified bacterial agents as the cause of diseases classified elsewhere